=== PATIENT | female | born 1940 | race Caucasian/White ===

== ENCOUNTER 2017-12-23 06:42 | Day surgery (SDC) | payer MEDICARE, OTHER, SELFPAY ==
[2017-12-05 11:27] VITALS: TEMP 36.1
--- NOTE | 2017-12-23 | PATH_ITS ---
[facility] Accession Number: [id number] . 01 Material submitted: . PART A: COLON BIOPSY AT 80CM PART B: CECAL POLYP PART C: SIGMOID BX . 02 Diagnosis: A. Colon at 80 cm, Biopsy: Fragment of tubular adenoma and fragments of colonic mucosa with no diagnostic abnormality. . B. Cecal Polyp: Tubular adenoma. . C. Sigmoid Colon, Biopsy: Colonic mucosa with no diagnostic abnormality. Negative for active or microscopic colitis. Negative for granulomata, dysplasia or malignancy. MRV/12/25/2017 . 02 Electronically signed: . Camron Vinson MD, PhD, Pathologist NPI- [id number] . 01 Gross description: . Part A: COLON BIOPSY AT 80CM: Received in formalin are multiple fragment(s) of maldonado, soft tissue measuring 1.5 x 0.2 x 0.1 cm in aggregate submitted entirely in 1 cassette(s) Part B: CECAL POLYP: Received in formalin are 2 fragment(s) of maldonado, soft tissue measuring 0.4 x 0.3 x 0.2 cm to 0.1 x 0.1 x 0.1 cm submitted entirely in 1 cassette(s) Part C: SIGMOID BX: Received in formalin are multiple fragment(s) of maldonado, soft tissue measuring 1.4 x 0.3 x 0.1 cm in aggregate submitted entirely in 1 cassette(s) /TRC /TRC . 02 Pathologist provided ICD-10: D12.0, D12.6 . 02 CPT . 147245, 297115, 929076 Performed at: [address] [facility], [place], [place] [id number] MD Xander Greenwood MD Phone: [phone] Performed at: 02 [facility] [place] [address] [place] [id number] MD Nishant Woodard MD Phone: [phone]
[2017-12-23 07:25] VITALS: BP 139/75; PULSE 74; RESP 15; TEMP 36.3; O2SAT 94
--- NOTE | 2017-12-23 07:49 | P.HP_ITS ---
History of Present Illness Chief complaint: [id number] COLONOSCOPY Narrative: Yodit Mullen is a 77 year old female who was seen in the office in early November. She has chronic diarrhea presently under treatment for breast cancer in a neoadjuvant status. She has CT scan that suggested thickening of a portion of the colon she is brought in for colonoscopy. She has seen a small amount of blood intermittently. No history of colon cancer. Last colonoscopy he is uncertain but she thinks it was quite sometime ago probably greater than 5 years and may be greater than 10. [facility] Medical History Anxiety (Acute) Arthritis (Acute) Basal cell carcinoma (Acute) Chronic pain of left knee (Acute) Colonic thickening (Acute) Diarrhea (Acute) Endometrial polyp (Acute) Frequent UTI (Acute) GERD (gastroesophageal reflux disease) (Acute) HTN (hypertension) (Acute) History of chemotherapy (Acute) IBS (irritable bowel syndrome) (Acute) Impaired vision (Acute) Neck pain (Acute) Port-a-cath in place (Acute) Postmenopausal bleeding (Acute) Sinus drainage (Acute) Urinary frequency (Acute) Urinary urgency (Acute) Weakness (Acute) Weight loss (Acute) Surgical History History of breast biopsy (Acute) History of cryosurgery (Acute) History of knee replacement (Acute) History of tonsillectomy (Acute) Status post epidural steroid injection (Acute) Status post hysteroscopy (Resolved 12/05/17) History of cataract removal with insertion of prosthetic lens History of third molar tooth extraction Status post hysteroscopy (12/30/14) Status post tonsillectomy and adenoidectomy Family History Mother Cancer Social History household members: children and other Smoking Status: Never smoker alcohol intake: current Meds Home Medications Medication Instructions Recorded Confirmed Type calcium carbonate [Tums] 500 mg PO PRN #0 07/21/17 12/23/17 History diazepam [Valium] 10 mg PO DIRECTED PRN #0 07/21/17 12/23/17 History amlodipine 10 mg PO DAILY 12/02/17 12/23/17 History atenolol 100 mg PO BID 12/02/17 12/23/17 History oxycodone 5 mg PO Q4HP PRN 12/23/17 12/23/17 History Generic Name Dose Route Start Last Admin Trade Name Freq PRN Reason Stop Dose Admin Flumazenil 0.2 mg 12/23/17 07:45 Romazicon IV PRN PRN Benzodiazepine Reversal Sodium Chloride 1,000 mls @ 200 mls/hr 12/23/17 07:45 Normal Saline 0.9% IV CONT MANDY Naloxone HCl 0.2 mg 12/23/17 07:45 Narcan IV Q2MIN PRN Opiate Reversal Ondansetron HCl 4 mg 12/23/17 07:45 Zofran IV 12/23/17 07:46 NOW ONE Allergies Allergy/AdvReac Type Severity Reaction Status Date / Time Penicillins [PENICILLINS] Allergy Severe HIVES Verified 12/23/17 07:14 ciprofloxacin [CIPROFLOXACIN] AdvReac Severe LEG CRAMPS Verified 12/23/17 07:14 lisinopril [LISINOPRIL] AdvReac Severe COUGH Verified 12/23/17 07:14 morphine [MORPHINE] AdvReac Severe NAUSEA, Verified 12/23/17 07:14 VOMITING simvastatin [SIMVASTATIN] AdvReac Severe MUSCLE Verified 12/23/17 07:14 ACHES clindamycin [CLINDAMYCIN] AdvReac Unknown DIARRHEA Verified 12/23/17 07:14 fesoterodine [From TOVIAZ] AdvReac Unknown DRY EYE Verified 12/23/17 07:14 Review of Systems Review of Systems All systems reviewed & are unremarkable except as noted in HPI and below Cardiovascular Comments: Has chronic hypertension Gastrointestinal Comments: Chronic diarrhea. Reports negative stool studies. Exam Vital Signs (past 8 hours): Vital Signs - 8 hr 3 12/23/17 07:25 Temperature 97.3 F L Pulse Rate 74 Respiratory Rate 15 Blood Pressure 139/75 H Pulse Oximetry 94 Pulse Oximetry 94 Oxygen Delivery Method Room Air Narrative Exam Narrative: Co operative no apparent distress. Lungs are clear to auscultation without rales or rhonchi. Heart regular rate and rhythm without murmur or gallop. Abdomen is protuberant soft nontender without mass. Patient is alert and oriented x3. Assessment & Plan Plan: Plan: Patient with chronic diarrhea and an abnormal CT scan for colonoscopy. I have discussed the procedure with her including risk of bleeding, perforation which would necessitate major operation, failure to find removal lesions of the potential tattoo. She appears to understand wishes to proceed.
--- NOTE | 2017-12-23 07:51 | PM.PREOP ---
Pre-operative Note Interval Note Pre-op Check: History & Physical exam performed today H&P completed within 30 days and has changed as indicated here:: None ASA Class (for procedural sedation): III
[2017-12-23] MEDS: SODIUM CHLORIDE 0.9% 1,000 ML 200 ML IV (07:54)
[2017-12-23] MEDS: ONDANSETRON 4 MG/2 ML INJ IV (08:09)
[2017-12-23] MEDS: fentaNYL 250 MCG/5 ML INJ IV (08:20)
[2017-12-23] MEDS: MIDAZOLAM 5 MG/5 ML VIAL IV (08:20)
[2017-12-23 08:50] VITALS: BP 125/75; PULSE 67; RESP 10; O2SAT 94
--- NOTE | 2017-12-23 08:52 | PM.OP.ENDO ---
Operative Date/Time/Diagnoses - Date of procedure: 12/23/17 Time of procedure: 08:52 Pre-op diagnosis: Abnormal CT scan with thickening of the colon. Chronic diarrhea. Post-op diagnosis: same (Two small polyps. Gomez diverticulosis with inflammation and edema of the sigmoid colon.) Procedure & Clinicians Study performed: Colonoscopy with cold biopsy Same procedure as scheduled: Yes Indications: Diarrhea. Abnormal CT scan. Surgeon: Andry García Procedure Notes SCOAP/Timeout: Performed Procedure in detail: The patient was placed in the left lateral decubitus position and underwent IV sedation directed by the surgeon consisting of fentanyl and Versed. Digital exam was remarkable for external tags. The scope was inserted and advanced through the rectum into the sigmoid, descending, transverse, and ascending colon. A small polyp was noted going in at about 80 cm this is biopsied to complete removal. Patient was noted to have extensive sigmoid diverticulosis but other diverticula scattered through the colon. There was some inflammation in the sigmoid colon.. Stiffener was inserted pressure applied. The cecum was reached identified by the ileocecal valve and the appendiceal opening. The ileocecal valve was briefly cannulated. The terminal ileum was normal in appearance. A small lesion was noted in the cecum which was biopsied and removed. The scope was gradually brought out. . The scope ultimately was retroflexed in the rectum. The appearance was normal. The scope was removed and the patient tolerated the procedure well Scope withdrawal time: 13 min Sedation minutes: 43 Findings: diverticulosis, polyp and other findings (Mild inflammation of the sigmoid colon with edema on the wall) Specimen(s): other (Polyps. Random sigmoid biopsies.) Complications: none Recommendations: Colonscopy in 5 years (If in good health)
[2017-12-23 08:54] VITALS: BP 135/68; PULSE 68; RESP 16; O2SAT 96
[2017-12-23 09:02] VITALS: BP 121/77; PULSE 67; RESP 14; TEMP 36.6; O2SAT 96
[2017-12-23 09:20] VITALS: BP 124/66; PULSE 66; RESP 16; TEMP 36.6; O2SAT 99
--- NOTE | 2017-12-23 09:31 | SUR.PHASEII ---
pt ready to go home, assisted to dress by trenton norris.
== END 2017-12-23 09:58 | disposition home or self-care (01) ==
PROVIDERS: PCP Family Medicine; Visit Provider Specialist
PROC: 0DJD8ZZ Inspection of Lower Intestinal Tract, Via Natural or Artificial Opening Endoscopic (ICD-10-PCS; CPT 45378; principal; 2017-12-23 07:45)
DX: R19.7 Diarrhea, unspecified (principal); R93.3 Abnormal findings on diagnostic imaging of other parts of digestive tract; K57.30 Diverticulosis of large intestine without perforation or abscess without bleeding; F41.9 Anxiety disorder, unspecified; I10 Essential (primary) hypertension; C50.919 Malignant neoplasm of unspecified site of unspecified female breast; D12.0 Benign neoplasm of cecum; D12.6 Benign neoplasm of colon, unspecified
CPT/HCPCS: 45380; 88305; 99152; 99153; J2250; J2405; J3010

== ENCOUNTER → 2018-01-07 13:18 | Outpatient (CLI) | payer MEDICARE, OTHER, SELFPAY ==
--- NOTE | 2018-01-07 | DI.RAD.S_ITS ---
PROCEDURE: XR FEMUR LT MIN 2V INDICATIONS: 77 year-old female with left knee and thigh pain. TECHNIQUE: 4 views of the femur were acquired. COMPARISON: [facility], CR, XR PELVIS W LATERAL HIP LT, 10/27/2015, 14:36. FINDINGS: Bones: No fractures or dislocations. There is mild medial left hip joint degenerative narrowing. Patient is status post left knee arthroplasty. No suspicious bony lesions. Soft tissues: No suspicious soft tissue calcifications or masses. IMPRESSION: Mild left hip joint degeneration, without acute bony injuries. Dictated by: Ronny Lopez M.D. on 01/07/2018 at 14:16 Approved by: Ronny Lopez M.D. on 01/07/2018 at 14:17
--- NOTE | 2018-01-07 | DI.RAD.S_ITS ---
PROCEDURE: XR KNEE LT 3V INDICATIONS: 77 year-old female with left knee pain, status post arthroplasty in September 2016. TECHNIQUE: 3 views of the knee were acquired. COMPARISON: [facility], XR KNEE ARTHRITIC SERIES LT, 05/16/2017, 14:38. [facility], KNEE SERIES LT, 12/27/2016, 14:10. [facility], KNEE SERIES LT, 10/04/2016, 14:07. [facility], NASRIN, KNEE 1-2 VIEWS LEFT, 09/23/2016, 17:55. [facility], BILATERAL KNEE 3VW, 05/17/2016, 15:32. FINDINGS: Bones: Left knee arthroplasty hardware appears intact and in expected positions. No periprosthetic fractures or dislocations. No suspicious bony lesions. Soft tissues: There is nonspecific small knee joint effusion. No suspicious soft tissue calcifications. IMPRESSION: Left knee arthroplasty hardware remains intact and in expected positions, with non-specific small knee joint effusion. Dictated by: Ronny Lopez M.D. on 01/07/2018 at 13:58 Approved by: Ronny Lopez M.D. on 01/07/2018 at 13:59
== END ==
PROVIDERS: PCP Family Medicine; Visit Provider Family Medicine
DX: M25.562 Pain in left knee (principal); M79.652 Pain in left thigh; Z96.652 Presence of left artificial knee joint; M16.12 Unilateral primary osteoarthritis, left hip
CPT/HCPCS: 73552; 73562

== ENCOUNTER 2018-01-15 14:59 | Observation (INO) | payer MEDICARE, OTHER, SELFPAY ==
[2018-01-14] VITALS (20 sets, daily range): BP systolic 102–142; BP diastolic 55–79; PULSE 56–67; RESP 12–18; TEMP 35.8–36.5; O2SAT 91–99; BMI 35.1
--- NOTE | 2018-01-14 | PATH_ITS ---
[facility] Accession Number: [id number] . 01 Material submitted: . PART A: RIGHT BREAST SENTINEL NODES X2 PART B: RIGHT BREAST . 02 Diagnosis: A. Right Breast, [place] Nodes x2, Excision: 2 sentinel lymph nodes negative for metastatic carcinoma. Please see CAP summary data below. . B. Right Breast, Total Mastectomy: No residual invasive carcinoma. Focal residual ductal carcinoma in situ. 3 axillary lymph nodes negative for metastatic carcinoma. Please see CAP summary data below. . . PROCEDURE: Total mastectomy SPECIMEN LATERALITY: Right TUMOR SITE: Lower outer quadrant. TUMOR SIZE: No residual invasive carcinoma. . HISTOLOGIC TYPE: Not applicable HISTOLOGIC GRADE: Not applicable TUMOR FOCALITY: Can not be determined. . 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 Size (Extent) of DCIS: 2 mm Architectural patterns: Solid Nuclear grade: High grade (grade 3) Necrosis: Not identified . LOBULAR CARCINOMA IN SITU: No LCIS in specimen . TUMOR EXTENSION: SKIN: Not involved NIPPLE: Not involved SKELETAL MUSCLE: Not applicable . MARGINS: INVASIVE CARCINOMA MARGINS: Not applicable. DCIS MARGINS: All margins are greater than 30 mm from DCIS. . REGIONAL LYMPH NODES: Uninvolved by tumor cells Number of Lymph Nodes Examined: 5 Number of [place] Lymph Nodes Examined: 2 . TREATMENT EFFECT: Treatment Effect in the Breast: No residual invasive carcinoma in breast after presurgical therapy. Treatment Effect in the Lymph Nodes: No lymph node metastasis and no prominent fibrous scarring in the nodes. . LYMPHOVASCULAR INVASION: Not identified. DERMAL LYMPHOVASCULAR INVASION: Not identified. . PATHOLOGIC STAGE CLASSIFICATION (AJCC 8th Edition, 2017) TNM Descriptors: y(posttreatment) Primary Tumor: pTis (DCIS) Regional Lymph Nodes: pN0(sn) . ADDITIONAL PATHOLOGIC FINDINGS: Fibrocystic changes. Biopsy site changes. Benign intraductal papilloma. . MICROCALCIFICATIONS: Present in non-neoplastic tissue. . CLINICAL HISTORY: Prior presurgical (neoadjuvant) therapy for this diagnosis of invasive carcinoma. JRL/01/21/2018 . 02 Comment: B. There is a small focus of atypical intraductal cells adjacent to the area of biopsy site changes. The cells show degenerative features, but have large atypical nuclei and high nuclear pleomorphism, consistent with the patient's prior high grade DCIS. . 02 Electronically signed: . Edith Angulo MD, Pathologist NPI- [id number] . 01 Gross description: . (A) Received in formalin, labeled right breast sentinel node x2, are two lymph nodes (1.4 x 0.9 x 0.5 cm and 2.1 x 0.8 x 0.8 cm) with attached adipose tissue. Section code: (A1, A2) one serially sectioned lymph node in each cassette. (B) Received in formalin, labeled right breast, short superior, long lateral, is a right breast (5.2 cm AP, 22.3 cm ML, 21.7 cm SI) with overlying skin (11.7 cm SI, 20.7 cm ML) with nipple areolar complex (4.0 x 3.8 cm). The axillary tail (9.5 x 8.0 x 2.0 cm) is present. The specimen is oriented with two black sutures (short-superior, long-lateral). No localization wire is present. After the axillary tail is removed, the specimen is serially sectioned ML into 31 slices with the medial and lateral resection margins as slices #1 and #31, respectively. The breast tissue is fatty and contains a previous biopsy site (1.5 x 1.0 x 0.8 cm) within slice #21. The biopsy site is located in the lower outer quadrant and is 3.8 cm from the skin surface, 6.5 cm from the posterior, 15.7 cm from the superior, 3.2 cm from the inferior, 15.1 cm from the medial, and 5.7 cm from the lateral resection margins. The surrounding tissue which involves slices #19-#22, is fatty and densely fibrous with scattered irregularly firm areas. This fibrous area is approximately 6.5 x 5.5 x 2.8 cm and is located 3.0 cm from the skin surface, 1.0 cm from the posterior, 13.5 cm from the superior, 2.5 cm from the inferior, 13.7 cm from the medial, and 6.5 cm from the lateral resection margins. No definitive nodules, masses or lesions are grossly identified. A silver-colored metal coiled biopsy marker is identified within the biopsy cavity. The axillary tail is fatty and contains multiple possible lymph nodes (0.8 x 0.5 x 0.2 cm-1.5 x 1.0 x 0.5 cm). Ink code: purple-anterior; yellow-posterior; black-superior; orange-inferior; green-medial; blue-lateral. Section code: (B1) nipple; (B2) skin; (B3) medial resection margin, perpendicularly sectioned, business representative; (B4) slice #17, business representative; (B5-B7) slice #18, tissue adjacent to densely fibrous area, business representative; (B8, B9) slice #19, business representative; (B10) slice #20, tissue adjacent to biopsy cavity; (B11, B12) slice #21, biopsy cavity, business representative; (B13-B14) slice #22, tissue adjacent to biopsy cavity, business representative; (B15) slice #23, tissue adjacent to densely fibrous area, business representative; (B16) superior resection margin and perpendicular slice of lateral resection margin, business representative; (B17-B19) one lymph node in each cassette. Note: Approximate total fixation time in formalin-69 hours 30 minutes, using a collection date of 01/14/2018 with no collection time given. This specimen has been reviewed by Dr. Karina Whyte. ([id number]) Dr. Angulo re-examined this specimen and submitted additional tissue as follows: (B21-22) slice 20, more inferior/posterior to sampled tissue, in composite. (B23) slice 20, more anterior to sampled tissue. (B24) slice, 20 more superior to sampled tissue. (B25) slice 21, more anterior to sampled tissue. (B26) slice 23, more anterior to sampled tissue. (B27-B28) slice 24, lateral to sampled tissue. (B29) slice 25, more anterior to sampled tissue. /MRV . 02 Microscopic: . Immunohistochemical stains were performed to characterize cells of interest. Control stains showed appropriate reactivity. . Results: A1: KIMBERLY: Negative. A2: KIMBERLY: Negative. B13: p63: Positive around the cells of interest. B13: myosin: Positive around the cells of interest. B21: p63: Positive around the cells of interest. B21: myosin: Positive around the cells of interest. B24: p63: Positive around the cells of interest. B24: myosin: Positive around the cells of interest. B26: p63: Positive around the cells of interest. B26: myosin: Positive around the cells of interest. . Interpretation: No isolated tumor cells are identified by IHC in the sentinel lymph nodes. Myoepithelial markers are present around ducts/lobules of interest consistent with non-neoplastic ducts/lobules. . * This test was developed and its performance characteristics determined by [facility]. It has not been cleared or approved by the U.S. Food and Drug Administration. The FDA has determined that such clearance or approval is not necessary. This test is used for clinical purposes. It should not be regarded as investigational or for research. . 02 Pathologist provided ICD-10: C50.911 . 02 CPT . 847529, 539868, W88451, T88145 Performed at: 01 [facility] [address] [id number] MD Xander Greenwood MD Phone: [phone] Performed at: 02 [facility] [address] [place] [id number] MD Nishant Woodard MD Phone: [phone]
--- NOTE | 2018-01-14 08:00 | DI.NM.S_ITS ---
PROCEDURE: NM SENTINEL NODE W IMAGING RADIOPHARMACEUTICAL: 0.5-1.0 mCi Millipore filtered Tc-99m sulfur colloid. INDICATIONS: 77 year-old female with right breast neoplasm. TECHNIQUE: The area around the nipple was prepped and draped in a sterile fashion. Tc-99m sulfur colloid was injected intra-dermally in the outer edge of the areola in the right breast. Images were obtained subsequently. A body contour outline was obtained. FINDINGS: There is one scintigraphically apparent sentinel lymph node in the ipsilateral axilla. IMPRESSION: Administration of radiotracer into the right breast periareolar region for intra-operative sentinel lymph node localization. Dictated by: Ronny Lopez M.D. on 01/14/2018 at 10:04 Approved by: Ronny Lopez M.D. on 01/14/2018 at 10:05
[2018-01-14] MEDS: LACTATED RINGERS 1,000 ML 42 ML IV ×2 (09:28→11:14)
--- NOTE | 2018-01-14 09:45 | SUR.PREOP ---
LAVERN GARRISON SPOKE TO DR ADAME ABOUT ALLERGUIES AND GLUCOSE ORDERED, INSTRUCTED NOT TO DO GLUCOSE AND ANCEF ANTIBIOTIC IS OK TO GIVE.
[2018-01-14] MEDS: CEFAZOLIN 2 GM/100 ML FROZ.PIGGY IV (09:52)
[2018-01-14] MEDS: BUPIVACAINE 0.5% (PF) 30 ML VIAL INJ (10:35)
[2018-01-14] MEDS: LIDOCAINE 1% W/EPI INJ 20 ML INJ (10:36)
--- NOTE | 2018-01-14 11:30 | PM.OP.1 ---
Operative Date/Time/Diagnoses - Date of procedure: 01/14/18 Time of procedure: 11:30 Pre-op diagnosis: Right Breast Cancer Post-op diagnosis: same Procedure & Clinicians Procedure: Right Mastectomy and [place] Node Biopsy Same procedure as scheduled: Yes Indications: Biopsy proven right breast cancer. Unable to tolerated neoadjuvant chemotherapy Surgeon: Kristine Chavira Click Yes if Unassisted: Yes Anesthesia Type: General (Ahsaei) and Local Operative Notes Findings: Two sentinel nodes. 1 with 10 second count of 9192 and 1 with a 10 second count of 7358 in a background of less than 10 Closure Type: primary Specimen(s): none sent (1. Right breast, 2. Right axillary sentinel nodes) Implants & Drains: 19 Citizen [place] Reese drain in the inferior pocket Applied: drain(s) Estimated Blood Loss (mL): 50 Procedure in detail: After obtaining informed consent, the patient was taken to the operating room and placed in supine position on the operating table. Following successful induction of general endotracheal anesthesia, appropriate padding of all bony prominences, and placement of appropriate monitors, the right chest and axilla were prepped and draped in the standard surgical fashion. Timeout was held per SCOAP protocol. We began with the right sentinel node biopsy. The navigator probe was used to identify the location of the sentinel node in the lower portion of the right axilla. Following infiltration with local anesthetic to create a field block, an incision was created in an elliptical in fashion around the nipple-areolar complex of the breast and carried down through the skin and subcutaneous tissue. The medial portion of this incision was used to access the right axillary fat pad. After careful dissection the sentinel node was identified and liberated by clipping afferent and efferent lymphatics. A 10 second count revealed the 1st sentinel node had counts 9192 and the 2nd had a 10 sec count of 7358 . Remaining background in the right axilla was less than 10. The wound was checked for hemostasis and irrigated with warm water. We continued with the mastectomy. Through the new elliptical incision and using traction and countertraction the tissue of the right breast was carefully from the overlying skin and dermis. This was continued medially to the sternum, superiorly to the clavicle, inferiorly to the inframammary fold, and laterally to the latissimus. The axillary tail of the breast was seen to extend revealed fluid up into the axilla fairly extensively. It was impossible to separate the level 1 and level 2 axillary nodes from the breast tissue completely. Dissection was continued until all the breast tissue had been divided down to the pectoralis muscle and the breast was removed medially to laterally the axillary node packet was then dissected free from underlying muscle and overlying skin. All afferent and efferent lymphatics and vasculature were addressed with clips prior to division. Once the breast and axillary contents were liberated, the breast was removed, marked appropriately, and passed from the table. The wound was then checked for hemostasis and irrigated copiously with warm water. A 19 Citizen [place] Reese drain was then placed in the inferior pocket and brought out through the skin inferior medially. The wound was then closed in 2 layers with Vicryl sutures and clips were applied in the skin. Dermabond was applied to cover the clips.. The drain was engaged and a breast binder of appropriate size placed for light pressure. All sponge, needle, and instrument counts were correct at the conclusion of the case. The patient was allowed awaken from anesthesia without difficulty and taken to the post anesthesia care unit in good condition. Complications: none Condition: stable Disposition: PACU Plan for aftercare: 1. Admit for observation and supportive care 2. Patient will need teaching for drain care 3. Patient is a fall risk
[2018-01-14] MEDS: fentaNYL 100 MCG/2 ML INJ 50 MCG IV ×2 (11:50→11:58)
[2018-01-14] MEDS: HYDROMORPHONE 2 MG INJ 0.5 MG IV ×4 (12:10→12:35)
[2018-01-14] MEDS: HYDROCODONE/ACET 5/325 TABLET 1 TAB PO (12:43)
[2018-01-14] MEDS: LACTATED RINGERS 1,000 ML 100 ML IV (13:12)
[2018-01-14] MEDS: LORazepam 0.5 MG TABLET PO ×2 (13:13→23:55)
[2018-01-14] MEDS: DEXTROSE 5%-0.45% NS 1,000 ML 125 ML IV ×2 (14:47→23:43)
[2018-01-14] MEDS: OXYCODONE/ACETAMINOPHEN 5/325 TABLET 1 TAB PO ×3 (14:48→22:48)
--- NOTE | 2018-01-14 15:55 | PC.NURSE ---
pt to floor around 1200. Dressing to r.mastectomy with gauze and halter binder in place. given ativan 0.5mg for restlessness and helpful. pt also given percocet for pain. She is resting comfortably now. ivf infusing and pt has no needs at this time.
--- NOTE | 2018-01-14 20:39 | PC.NURSE ---
Pt refusing her evening dose of atenolol stating she hasn't been taking her evening dose for a couple weeks now she has only been taking it in the am. Pt stating the 1 percocet is relieving her pain in her knee and also at her incision site quite well. Binder remains in place, with gauze over incision with alyse intact, no drainage noted at incision site, drain patent, draining sanguineous liquid.
[2018-01-15] MEDS: OXYCODONE/ACETAMINOPHEN 5/325 TABLET 1 TAB PO ×4 (03:59→19:48)
[2018-01-15 04:54] VITALS: BP 130/67; PULSE 68; RESP 17; TEMP 36.6; O2SAT 95
[2018-01-15 07:40] VITALS: BP 130/61; PULSE 65; RESP 18; TEMP 36.8; O2SAT 93
[2018-01-15] MEDS: DOCUSATE 100 MG CAPSULE PO ×2 (09:08→20:06)
[2018-01-15] MEDS: AMLODIPINE 5 MG TABLET 10 MG PO (09:08)
[2018-01-15] MEDS: ATENOLOL 50 MG TABLET 100 MG PO (09:08)
[2018-01-15] MEDS: KETOROLAC 30 MG/ML VIAL IV (09:09)
[2018-01-15 12:17] VITALS: BP 134/72; PULSE 72; RESP 18; TEMP 36.6; O2SAT 94
--- NOTE | 2018-01-15 12:56 | PM.PN.1 ---
Subjective Date Patient Seen: 01/15/18 Time Patient Seen: 12:56 Interval history: POD #1 after left mastectomy for invasive malignancy. She is feeling ok today. Better than she thought she would. Says her pain is reasonably well controlled Exam Vital Signs (past 8 hours): Vital Signs - 8 hr 01/15/18 07:40 Temperature 98.2 F Pulse Rate 65 Respiratory Rate 18 Blood Pressure 130/61 H Pulse Oximetry 93 Pulse Oximetry 93 Oxygen Delivery Method Room Air Oxygen Flow Rate 2 Narrative Exam Narrative: Exam is limited to the chest. Lungs are clear bilaterally Heart is regular rate and rhythm The skin over the right mastectomy incision is alive, mild bruising. Drainage is very thin and serosanguineous. Assessment & Plan Plan: Assessment/Plan Narrative: Postop day 1 status post right mastectomy for biopsy-proven breast malignancy. We will await pathology. Continue supportive care. catering convention services manager will see her this afternoon regarding the possibility of home health assistance. Tentatively plan for discharge tomorrow
--- NOTE | 2018-01-15 16:02 | CM.DANOTE ---
DCP Assessment: Pt is a 77 yo female, resident of [place]. Pt was SDC, changed to obs for a Masectomy done by Dr Chavira. Pt's PCP is Dr Gasca, Insurance is Medicare/[employer]. Reviewed chart, spoke w/Dr Chavira and BLADIMIR Dent, then met w/pt to review DC options, explained SW role. Pt lives alone, 60 yo son, recently , lives on the property. Pt explains it is difficult for her to walk or stand for long stretches d/t her left knee, h/o knee surgery that hasn't quite healed. She attempted to get HH, Dr Gasca had sent a referral to [facility] and they told pt you are not homebound. According to our conversation, pt's son does not provide much physical assistance and pt states her grand kids and great grand kids are busy with their own families. Pt has friends that also have medical issues. Pt heats up frozen meals for herself and can complete most ADLs indp but experiences more pain in my knee than before the surgery. Pt explains she has a family h/o cancer, she recently had to stop chemo d/t an adverse reaction, she became too weak to continue. Pt admits to multiple loses in her family, including 2 children, she states her roopa helps her cope. Pt doesn't want to attend jain because it takes a lot of effort to leave her home, but watches [employer]. Overall, pt seems quite vulnerable right now, the least this LANDCARE FACILITATOR can arrange is HH, Pt agreeable and has no agency preference. This LANDCARE FACILITATOR will attempt [facility] because [facility] has recently declined to follow up w/pt, per her report. HH RN/PT/CHILD CARE SITTER/LANDCARE FACILITATOR are approp. F2F signed by Dr Chavira today; referral to HH agency still needed for pt's DC Friday. LATOYA Lipscomb
[2018-01-15 16:13] VITALS: BP 114/59; PULSE 64; RESP 17; TEMP 36.5; O2SAT 95
[2018-01-15 19:30] VITALS: BP 130/61; PULSE 62; RESP 18; TEMP 36.6; O2SAT 95
[2018-01-15] MEDS: SODIUM CHLORIDE 0.9% FLUSH 10 ML IV (19:48)
[2018-01-15] MEDS: LORazepam 0.5 MG TABLET PO (22:15)
--- NOTE | 2018-01-15 22:24 | PC.NURSE ---
EDUCATION educated pt on LEIDY drain care. supervised pt during LEIDY drainage emptying. pt without questions at this time. will communicate to oncoming RN to allow pt to continue to care for her drain.
[2018-01-16 00:10] VITALS: BP 126/69; PULSE 72; RESP 16; TEMP 36.7; O2SAT 98
[2018-01-16] MEDS: OXYCODONE/ACETAMINOPHEN 5/325 TABLET 1 TAB PO ×3 (00:34→12:39)
[2018-01-16 06:44] VITALS: BP 140/75; PULSE 62; RESP 15; TEMP 36.3; O2SAT 95
[2018-01-16 08:02] VITALS: BP 141/73; PULSE 60
[2018-01-16] MEDS: AMLODIPINE 5 MG TABLET 10 MG PO (08:02)
[2018-01-16] MEDS: ATENOLOL 50 MG TABLET 100 MG PO (08:02)
[2018-01-16] MEDS: DOCUSATE 100 MG CAPSULE PO (08:04)
[2018-01-16] MEDS: SODIUM CHLORIDE 0.9% FLUSH 10 ML IV (08:06)
[2018-01-16 08:29] VITALS: BP 145/78; PULSE 60; RESP 16; TEMP 36.7
--- NOTE | 2018-01-16 10:38 | PM.DS.1 ---
History of Present Illness Date Patient Seen: 01/16/18 Time Patient Seen: 10:38 Chief complaint: [id number] RIGHT BREAST MASTECTOMY & SNB Narrative: Yodit is a pleasant 77-year-old lady with biopsy-proven right breast malignancy. Her primary tumor was about 4 cm in size. Our initial plan was for her to receive neoadjuvant chemotherapy followed by lumpectomy. Neoadjuvant chemotherapy proved very very difficult for Yodit to tolerate and she decided that she preferred a mastectomy. She also decided that she did not wish to have radiation therapy. She had presented on the day of admission to undergo a right mastectomy and sentinel node biopsy. Discharge Providers Date of admission: 01/14/18 07:35 Primary care physician: Ham Gasca MD Consults: 01/14/18 13:25 Consult to Discharge Planning Routine Comment: Consult to Diamond Assorter Routine Comment: Patient is requesting home health Discharge provider: Kristine Chavira MD Summary Discharge Diagnosis: Right breast cancer Hospital Course: Yodit underwent an uneventful right modified radical mastectomy and sentinel node biopsy on the day of admission. She was returned to the [facility] floor postoperatively and has done well. She is right handed and so having her right arm somewhat disabled at the moment significantly limits her activity. She has done well keeping at her side but she will need help at home to manage her drain and her breast binder. She does have a son at home but he has recently had surgery himself in his ability to help is limited. Today, her pain is well controlled, she is walking the halls unassisted, her vital signs are normal, and her drain output is serous. She is ready for discharge. Status at Discharge Cognitive/behavioral status at discharge: Normal Functional status at discharge: uses cane/walker Time Spent with Patient Less than 30 minutes Exam Vital Signs (past 8 hours): Vital Signs - 8 hr 01/16/18 06:44 01/16/18 08:02 01/16/18 08:29 Temperature 97.4 F L 98.1 F Pulse Rate 62 60 60 Respiratory Rate 15 16 Blood Pressure 140/75 H 141/73 H 145/78 H Pulse Oximetry 95 Pulse Oximetry 95 Oxygen Delivery Method Room Air Oxygen Flow Rate 0 Narrative Exam Narrative: Very pleasant elderly lady in no real distress today HEENT: Normocephalic and atraumatic, pupils equal round reactive to light accommodation with anicteric sclera Lungs: Essentially clear bilaterally Heart: Regular rate and rhythm Chest: Right mastectomy incision is healing. She has some bruising in this superior and inferior flap more laterally than medially. No evidence of epidermolysis yet. The drain is serous and all tissue seems to be alive. No evidence of edema in the right arm hand. Extremities: Bilateral 1+ lower extremity edema Discharge Plan Discharge Plan Patient Disposition: Home Health Service Discharge comment: Needs home health assistance for wound care and drain management. Discharge Med Rec/Prescriptions Prescriptions: New oxycodone-acetaminophen 5-325 mg Tablet 1 tab PO Q4HR PRN (Reason: Pain, Moderate) Qty: 30 RF: 0 docusate sodium 100 mg Capsule 100 mg PO BID PRN (Reason: Constipation) 30 Days Qty: 60 RF: 0 Continue calcium carbonate [Tums] 500 MG tablet,chewable 500 mg PO PRN PRN (Reason: Heartburn) Qty: 0 RF: 0 lorazepam 0.5 mg Tablet 0.5 mg PO Q4-6H PRN (Reason: Anxiety) RF: 0 atenolol 100 mg Tablet 100 mg PO BID RF: 0 amlodipine 10 mg Tablet 10 mg PO DAILY RF: 0 Discontinued oxycodone 5 MG tablet 5 mg PO Q4HP PRN (Reason: Pain (Scale Score 1-3)) RF: 0 Follow up/Referrals: Kristine Chavira MD [Physician] - 1 Week Provider Discharge Instructions Diet: Diet as Tolerated Activity: Keep your right arm at your side. You may shower as desired. You may remove the binder to shower or to launder the binder and then replace afterward. You may wear any garment you wish under the binder and place the binder on top. Cold/Heat Therapy: Continue to apply ice to the chest wall and axilla as often as tolerated. Wound Care Report to your healthcare provider any signs of infection, such as:: chills, fever, night sweats, increased pain and unusual drainage Dressing: Empty the drain and record the amount every 12 hours. Discharge Data Primary Care Provider: Ham Gasca Attending Provider: Kristine Chavira Admit Date/Time: 01/14/18 07:35
--- NOTE | 2018-01-16 15:47 | CM.DPNOTE ---
DC Note: This SCALLOP DREDGER requested that admin assist Geno make HH referral through [facility]. Updated pt and she was grateful and expected her son to pick her up today. Encouraged pt to wait for the DC instructions until son arrived. Home w/family and [facility] f/y w/in 24-48 hrs. RobynKNaomi
== END 2018-01-16 13:57 | disposition home health service (06) ==
LOC: AC 01-16 10:35 → OR 01-16 14:27
PROVIDERS: Admitting Provider Surgery; PCP Family Medicine; Visit Provider Surgery
PROC: 0HTT0ZZ Resection of Right Breast, Open Approach (ICD-10-PCS; CPT 19303; principal; 2018-01-14 10:00)
DX: C50.911 Malignant neoplasm of unspecified site of right female breast (principal); E66.9 Obesity, unspecified; I10 Essential (primary) hypertension; Z17.1 Estrogen receptor negative status [ER-]
CPT/HCPCS: 19303; 38500; 78195; 88307; 88309; 88341; 88342; 94760; A9541; G0378; J0690; J1100; J1170; J1885; J2405; J2704; J3010

== ENCOUNTER → 2018-05-07 09:14 | Outpatient (CLI) | payer MEDICARE, OTHER, SELFPAY ==
[2018-01-22 13:41] VITALS: BMI 35.1
--- NOTE | 2018-05-07 09:17 | DI.ECHO.S_ITS ---
[facility]---------+ [facility] +---------+ : : [address] : : : : [id number] : : : : Phone: [phone] +---------+ Echocardiogram Report + + :Name: MARY DELGADO Study Date: 05/07/2018 Height: 64 in : :[facility] Exam Location: [facility] Weight: 215 lb : : Gender: Female BSA: 2.0 m2 : :: 1940 Age: 77 yrs BP: 125/68 mmHg: :Reason For Study: BREAST CANCER PRE TREATMENT : : Performed By: Shital Peter : :Referring: MAHIN MEDRANO : + + Interpretation Summary The ejection fraction is estimated to be 60-65%. The left atrium is moderately dilated. There is trace mitral regurgitation. There is mild aortic valve sclerosis. There is mild tricuspid regurgitation. The right ventricular systolic pressure is estimated to be at least 40 mmHg based on an estimated right atrial pressure of 3 mm Hg. Procedure: A two-dimensional transthoracic echocardiogram with color flow and Doppler was performed. The study quality was technically adequate. There is no prior echocardiogram noted for this patient. The patient was in normal sinus rhythm during the exam. Left Ventricle: The left ventricle is normal in size, wall thickness, and systolic function without any focal wall motion abnormalities. The ejection fraction is estimated to be 60-65%. Left ventricular wall motion is normal. Diastolic parameters suggest probable normal left ventricular diastolic function and normal filling pressures. Right Ventricle: The right ventricle is normal in size and function. Atria: The left atrium is moderately dilated. The right atrium is mildly dilated. There is no Doppler evidence for an interatrial shunt. Mitral Valve: The mitral valve leaflets appear mildly thickened, but open well. There is mild mitral annular calcification. There is trace mitral regurgitation. Aortic Valve: The aortic valve is trileaflet. There is mild aortic valve sclerosis. The aortic valve opens well. No aortic regurgitation is present. Tricuspid Valve: The tricuspid valve is normal. There is mild tricuspid regurgitation. The right ventricular systolic pressure is estimated to be at least 40 mmHg based on an estimated right atrial pressure of 3 mm Hg. Pulmonic Valve: The pulmonic valve is not well seen, but is grossly normal. There is a trace or physiologic amount of pulmonic regurgitation. Great Vessels: The aortic root is normal size. The ascending aorta is normal in size. The aortic arch is normal in size. The pulmonary is not well visualized. The IVC is of normal diameter and collapses greater than 50% with a sniff. This suggests a low right atrial pressure of 3 mm Hg. Pericardium/ Pleura There is no pericardial effusion. There is no pleural effusion. MMode/2D Measurements & Calculations LVIDd: 4.8 cm LVOT diam: 2.1 cm LVIDs: 3.0 cm Ao root diam: 3.3 cm FS: 37.3 % asc Aorta Diam: 3.4 cm EPSS: 0.13 cm Ao Arch Diam (Prox Trans): 2.9 cm IVSd: 0.97 cm LVPWd: 0.97 cm LV peters. diameter/BSA (cm/m^2): 2.4 LV sys. diameter/BSA (cm/m^2): 1.5 LA A2 area: 25.2 cm2 RA long axis: 5.9 cm LA A4 area: 26.9 cm2 RA area: 22.6 cm2 LA length (vol): 6.1 cm RA vol: 74.1 ml LA vol: 95.3 ml RA : 36.7 ml/m2 LA vol index: 47.2 ml/m2 IVC diam: 1.3 cm RVD1 (basal): 3.5 cm RVD2 (mid): 3.4 cm TAPSE: 2.6 cm Doppler Measurements & Calculations Ao V2 max: 141.0 cm/sec LVOT Max Bony: 138.3 cm/sec Ao V2 mean: 96.1 cm/sec LV V1 max P.7 mmHg Ao max P.9 mmHg LV V1 VTI: 28.3 cm Ao mean P.3 mmHg STEPHANIE(I,D): 3.6 cm2 Ao V2 VTI: 27.2 cm STEPHANIE(V,D): 3.3 cm2 sev ratio: 1.0 STEPHANIE indexed to BSA (cm^2/m^2): 1.8 MV E max obny: 100.6 cm/sec TR max bony: 301.9 cm/sec MV A max bony: 120.0 cm/sec TR max P.5 mmHg MV E/A: 0.84 PA V2 max: 84.2 cm/sec Med Peak E' Bony: 6.3 cm/sec PA V2 mean: 59.6 cm/sec E/E' med: 15.9 PA mean P.5 mmHg Lat Peak E' Bony: 7.7 cm/sec PA pr(Accel): 41.6 mmHg E/E' lat: 13.1 E/e' average: 14.5 MV dec time: 0.24 sec Reading Physician:03:09 PM
== END ==
PROVIDERS: PCP Family Medicine; Visit Provider Internal Medicine Hematology & Oncology
DX: I08.2 Rheumatic disorders of both aortic and tricuspid valves (principal); C50.919 Malignant neoplasm of unspecified site of unspecified female breast; Z92.21 Personal history of antineoplastic chemotherapy
CPT/HCPCS: 93306

== ENCOUNTER → 2018-07-31 12:26 | Outpatient (CLI) | payer MEDICARE, OTHER, SELFPAY ==
[2018-01-22 13:41] VITALS: BMI 35.1
--- NOTE | 2018-07-31 12:29 | DI.ECHO.S_ITS ---
[facility]---------+ [facility] +---------+ : : [address] : : : : [id number] : : : : Phone: [phone] : : [phone] +---------+ Echocardiogram Report + + :Name: MARY DELGADO Study Date: 07/31/2018 Height: 64 in : :[facility] Weight: 224 lb : : Gender: Female BSA: 2.1 m2 : :: 1940 Age: 77 yrs BP: 160/78 mmHg: :Reason For Study: Chemotherapy F/U (ICD Code V67.2) : : Performed By: Edith Edwards : :Referring: MAHIN MEDRANO : + + Interpretation Summary Normal left ventricle size with ejection fraction 60-65%. Moderately dilated left atrium. Mild mitral regurgitation. Mild to moderate tricuspid regurgitation. The right ventricular systolic pressure is estimated to be at least 52 mmHg based on an estimated right atrial pressure of 3 mm Hg. Moderate pulmonary hypertension. Comparison is made with the echocardiogram of 05-07-18, pulmonary pressure has increased. Procedure: A two-dimensional transthoracic echocardiogram with color flow and Doppler was performed. The study quality was technically adequate. Comparison is made with the echocardiogram of 05-07-18. The patient was in normal sinus rhythm during the exam. Left Ventricle: The left ventricle is normal in size. There is normal left ventricular wall thickness. The ejection fraction is estimated to be 60-65%. There are no focal wall motion abnormalities. Diastolic parameters suggest a pseudonormalization pattern, consistent with probable elevated filling pressures. Right Ventricle: The right ventricle grossly appears normal in size with probable normal systolic function. Atria: The left atrium is moderately dilated. Right atrial size is normal. The interatrial septum is intact with no evidence for an atrial septal defect. Mitral Valve: The mitral valve leaflets appear mildly thickened, but open well. There is mild mitral annular calcification. There is mild mitral regurgitation. Aortic Valve: The aortic valve opens well. No aortic regurgitation is present. Tricuspid Valve: The tricuspid valve leaflets are thin and pliable. There is mild to moderate tricuspid regurgitation. The right ventricular systolic pressure is estimated to be at least 52 mmHg based on an estimated right atrial pressure of 3 mm Hg. There is moderate pulmonary hypertension. Pulmonic Valve: The pulmonic valve is not well visualized. Great Vessels: The aortic root is normal size. The dimensions of the ascending aorta are normal. The IVC is of normal diameter and collapses greater than 50% with a sniff. This suggests a low right atrial pressure of 3 mm Hg. Pericardium/ Pleura There is no pericardial effusion. There is no pleural effusion. MMode/2D Measurements & Calculations LVIDd: 5.1 cm Ao root diam: 3.0 cm LVIDs: 3.4 cm Aortic Jxn: 2.6 cm FS: 32.7 % asc Aorta Diam: 3.4 cm IVSd: 1.0 cm LVPWd: 0.94 cm LV peters. diameter/BSA (cm/m^2): 2.5 LV sys. diameter/BSA (cm/m^2): 1.7 LA dimension: 5.0 cm RA long axis: 5.3 cm LA A2 area: 25.0 cm2 RA area: 19.8 cm2 LA A4 area: 27.9 cm2 RA vol: 63.1 ml LA length (vol): 6.5 cm RA : 30.7 ml/m2 LA vol: 91.4 ml IVC diam: 1.5 cm LA vol index: 44.5 ml/m2 RVDd major: 7.1 cm RVD1 (basal): 4.0 cm RVD2 (mid): 3.5 cm Doppler Measurements & Calculations Ao V2 max: 160.3 cm/sec MV E max bony: 135.8 cm/sec Ao V2 mean: 106.6 cm/sec MV A max bony: 107.7 cm/sec Ao max P.3 mmHg MV E/A: 1.3 Ao mean P.3 mmHg Med Peak E' Bony: 5.9 cm/sec Ao V2 VTI: 37.2 cm E/E' med: 23.0 MV dec time: 0.14 sec MV P1/2t: 42.9 msec TR max bony: 349.4 cm/sec MV V2 mean: 55.8 cm/sec TR max P.8 mmHg MV mean P.4 mmHg PA Accel Time: 0.13 sec MV V2 VTI: 21.7 cm MV P1/2t max bony: 136.8 cm/sec MVA(P1/2t): 5.1 cm2 Electronically signed by: Genevieve Zheng on Reading Physician:07/31/2018 04:19 PM
== END ==
PROVIDERS: PCP Family Medicine; Visit Provider Internal Medicine Hematology & Oncology
DX: C50.911 Malignant neoplasm of unspecified site of right female breast (principal)
CPT/HCPCS: 93306

== ENCOUNTER → 2018-08-28 09:52 | Outpatient (CLI) | payer MEDICARE, OTHER, SELFPAY ==
[2018-01-22 13:41] VITALS: BMI 35.1
--- NOTE | 2018-08-28 | DI.NM.S_ITS ---
PROCEDURE: NM BONE SCAN WHOLE BODY RADIOPHARMACEUTICAL: 20.9 mCi Tc-99m MDP IV. INDICATIONS: unilateral primary osteoarthritis, knee TECHNIQUE: Delayed whole-body scintigrams were obtained approximately 3-4 hours after intravenous injection of radiotracer. Anterior and posterior views were acquired from vertex to feet. Additional left and right oblique views of the knees were obtained. COMPARISON: [facility], CT, ABDOMEN/PELVIS WITH CONTRAST, 10/09/2017, 15:52. [facility], CR, L-SPINE 2-3 VIEWS, 09/22/2015, 14:08. [facility], CR, XR FEMUR LT MIN 2V, 01/07/2018, 13:02. [facility], CR, XR KNEE ARTHRITIC SERIES LT, 05/16/2017, 14:38. [facility], CR, XR KNEE LT 3V, 01/07/2018, 13:02. FINDINGS: There is left knee arthroplasty. There is increased activity along the lateral aspect of the distal femur at the bone-prosthesis interface. No lesions are identified in skull, sternum, clavicles, scapulae, ribs, bony pelvis, and visualized shafts of the long bones. There is level increased uptake in cervical, thoracic and lumbar spine with distribution indistinguishable from degenerative changes. There are foci of increased periarticular activity involving shoulders bilaterally, sternoclavicular joints bilaterally, right elbow, both wrists and hands, hips bilaterally, right knee, ankles and feet bilaterally, compatible with degenerative/arthritic changes. There is increased activity on the posterior projection above the iliac crests bilaterally. Note is made of urinary contamination. IMPRESSION: 1. There is left knee arthroplasty. Increased activity is noted in the lateral aspect of the distal left femur along the bone/prosthesis interface, which could be secondary to prosthesis loosening. 2. 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 3. There is increased activity on the posterior projection above the iliac crests bilaterally, uncertain clinical significance. The finding may be secondary to contamination. Dictated by: Gabbie Young M.D. on 08/28/2018 at 17:12 Approved by: Gabbie Young M.D. on 08/28/2018 at 17:25
== END ==
PROVIDERS: PCP Family Medicine; Visit Provider Orthopaedic Surgery
DX: M15.0 Primary generalized (osteo)arthritis (principal); Z96.652 Presence of left artificial knee joint
CPT/HCPCS: 78306; A9503

== ENCOUNTER → 2018-10-12 13:41 | Outpatient (CLI) | payer MEDICARE, OTHER, SELFPAY ==
[2018-01-22 13:41] VITALS: BMI 35.1
--- NOTE | 2018-10-12 | DI.ECHO.S_ITS ---
[facility]---------+ [facility] +---------+ : : [address] : : : : [id number] : : : : Phone: [phone] : : [phone] +---------+ Echocardiogram Report + + :Name: MARY DELGADO Study Date: 10/12/2018 Height: 64 in : :[facility] Weight: 222 lb : : Gender: Female BSA: 2.0 m2 : :: 1940 Age: 77 yrs BP: 138/74 mmHg: :Reason For Study: Chemotherapy F/U (ICD Code V67.2) : :Ordering Physician: Moises : :Carlos Corona Performed By: Edith Edwards : + + Interpretation Summary 1) Normal left ventricular thickness, size, wall motion, and systolic function (EF 60-65%). 2) Grossly, normal right ventricular size and function. 3) Mild to moderate mitral regurgitation and mild to moderate tricuspid regurgitation present. 4) The right ventricular systolic pressure is estimated to be at least 50 mmHg based on an estimated right atrial pressure of 3 mm Hg. 5) Compared to the Echo done 07/31/2018, mitral regurgitation has progressed from mild to mild-moderate on this study. Procedure: A two-dimensional transthoracic echocardiogram with color flow and Doppler was performed. The study quality was technically adequate. Comparison is made with the echocardiogram of 12-28-18. The patient was in normal sinus rhythm during the exam. Left Ventricle: The left ventricle is normal in size, wall thickness, and systolic function without any focal wall motion abnormalities. The ejection fraction is estimated to be 60-65%. Diastolic parameters suggest a pseudonormalization pattern, consistent with probable elevated filling pressures. Right Ventricle: The right ventricle grossly appears normal in size with probable normal systolic function. Atria: The left atrium is borderline dilated. Right atrial size is normal. The interatrial septum is intact with no evidence for an atrial septal defect. Mitral Valve: The mitral valve leaflets appear borderline thickened, but open well. There is mild to moderate mitral regurgitation. Aortic Valve: The aortic valve opens well. No aortic regurgitation is present. Tricuspid Valve: The tricuspid valve leaflets are thin and pliable. There is mild to moderate tricuspid regurgitation. The right ventricular systolic pressure is estimated to be at least 50 mmHg based on an estimated right atrial pressure of 3 mm Hg. Pulmonic Valve: The pulmonic valve is not well seen, but is grossly normal. There is trace pulmonic regurgitation. Great Vessels: The aortic root is normal size. The ascending aorta is at the upper limits of normal in size. The aortic arch is normal in size. The IVC is of normal diameter and collapses greater than 50% with a sniff. This suggests a low right atrial pressure of 3 mm Hg. Pericardium/ Pleura There is no pericardial effusion. There is no pleural effusion. MMode/2D Measurements & Calculations LVIDd: 4.6 cm Ao root diam: 2.9 cm LVIDs: 2.9 cm Aortic Jxn: 2.7 cm FS: 37.1 % asc Aorta Diam: 3.5 cm EPSS: 0.14 cm Ao Arch Diam (Prox Trans): 2.8 cm IVSd: 1.1 cm LVPWd: 0.94 cm LV peters. diameter/BSA (cm/m^2): 2.3 LV sys. diameter/BSA (cm/m^2): 1.4 LA dimension: 4.9 cm RA long axis: 5.1 cm LA A2 area: 19.2 cm2 RA area: 17.4 cm2 LA A4 area: 23.5 cm2 RA vol: 50.2 ml LA length (vol): 5.8 cm RA : 24.6 ml/m2 LA vol: 65.7 ml IVC diam: 1.6 cm LA vol index: 32.1 ml/m2 RVDd major: 5.7 cm RVD1 (basal): 3.6 cm RVD2 (mid): 3.0 cm Doppler Measurements & Calculations Ao V2 max: 162.5 cm/sec MV E max bony: 124.3 cm/sec Ao V2 mean: 106.7 cm/sec MV A max bony: 97.9 cm/sec Ao max P.6 mmHg MV E/A: 1.3 Ao mean P.2 mmHg Med Peak E' Bony: 5.6 cm/sec Ao V2 VTI: 39.0 cm E/E' med: 22.3 Lat Peak E' Bony: 6.2 cm/sec E/E' lat: 20.0 E/e' average: 21.1 MV dec time: 0.16 sec MV P1/2t: 47.7 msec MR ERO: 0.22 cm2 TR max bony: 343.0 cm/sec MV P1/2t max bony: 121.9 cm/sec TR max P.1 mmHg MVA(P1/2t): 4.6 cm2 PA V2 max: 81.9 cm/sec PA V2 mean: 55.7 cm/sec PA mean P.4 mmHg PA Accel Time: 0.13 sec MR flow rate: 117.5 cm3/sec MR PISA radius: 0.69 cm Reading Physician:11:51 PM
== END ==
PROVIDERS: Family Provider Internal Medicine Hematology & Oncology; PCP Family Medicine; Visit Provider Internal Medicine Cardiovascular Disease
DX: I08.1 Rheumatic disorders of both mitral and tricuspid valves (principal); I27.20 Pulmonary hypertension, unspecified; Z09 Encounter for follow-up examination after completed treatment for conditions other than malignant neoplasm
CPT/HCPCS: 93306

== ENCOUNTER → 2018-12-30 09:04 | Outpatient (CLI) | payer MEDICARE, OTHER, SELFPAY ==
[2018-01-22 13:41] VITALS: BMI 35.1
--- NOTE | 2018-12-30 | DI.ECHO.S_ITS ---
[facility] +---------+ [facility] +---------+ : : [address] : : : : [id number] : : : : Phone: [phone]+ Echocardiogram Report + + :Name: MARY DELGADO Study Date: 12/30/2018 Height: 64 in : :[facility] Exam Location: [facility] Weight: 222 lb : : Gender: Female BSA: 2.0 m2 : :: 1940 Age: 78 yrs BP: 122/70 mmHg: :Reason For Study: Pulmonary - Hypertension : :Ordering Physician: Moises Gonzalez : :Chloe Performed By: Yas Page : + + Interpretation Summary 1) Normal left ventricular thickness, size, wall motion, and systolic function (EF 60-65%). 2) Grossly, normal right ventricular size and function. 3) Diastolic parameters suggest a pseudonormalization pattern, consistent with probable elevated filling pressures. 4) There is mild to moderate mitral regurgitation. 5) The right ventricular systolic pressure is estimated to be at least 38 mmHg based on an estimated right atrial pressure of 3 mm Hg. 6) Compared to the Echo done 10/12/2018, systolic PA pressure has decreaed from 50mmHG to 38mmHg on this study. Procedure: A two-dimensional transthoracic echocardiogram with color flow and Doppler was performed. The study quality was technically adequate. Comparison is made with the echocardiogram of 10/12/2018. The patient was in sinus bradycardia with heart rates between 51-55 bpm during the exam. Left Ventricle: The left ventricle is normal in size, wall thickness, and systolic function without any focal wall motion abnormalities. The ejection fraction is estimated to be 60-65%. Diastolic parameters suggest a pseudonormalization pattern, consistent with probable elevated filling pressures. Right Ventricle: The right ventricle is mildly dilated. The right ventricular systolic function is normal. Atria: The left atrium is moderately dilated. The right atrium is mildly dilated. There is no Doppler evidence for an interatrial shunt. Mitral Valve: The mitral valve leaflets appear mildly thickened, but open well. There is mild to moderate mitral regurgitation. Aortic Valve: The aortic valve is trileaflet. The aortic valve opens well. There is no aortic valve stenosis. No aortic regurgitation is present. Tricuspid Valve: The tricuspid valve leaflets are thin and pliable. There is mild tricuspid regurgitation. The right ventricular systolic pressure is estimated to be at least 38 mmHg based on an estimated right atrial pressure of 3 mm Hg. Pulmonic Valve: The pulmonic valve is not well visualized. There is trace pulmonic regurgitation. Great Vessels: The aortic root is normal size. The ascending aorta is at the upper limits of normal in size. The pulmonary artery is not well visualized, but is probably normal size. The IVC is of normal diameter and collapses greater than 50% with a sniff. This suggests a low right atrial pressure of 3 mm Hg. Pericardium/ Pleura There is no pericardial effusion. There is no pleural effusion. MMode/2D Measurements & Calculations LVIDd: 5.0 cm LVOT diam: 1.9 cm LVIDs: 3.2 cm Ao root diam: 3.4 cm FS: 35.2 % asc Aorta Diam: 3.4 cm EPSS: 0.00 cm IVSd: 1.1 cm LVPWd: 0.76 cm LV peters. diameter/BSA (cm/m^2): 2.4 LV sys. diameter/BSA (cm/m^2): 1.6 LA A2 area: 27.5 cm2 RA long axis: 5.2 cm LA A4 area: 25.8 cm2 RA area: 20.9 cm2 LA length (vol): 5.8 cm RA vol: 71.2 ml LA vol: 103.8 ml RA : 34.8 ml/m2 LA vol index: 50.8 ml/m2 IVC diam: 1.5 cm RVD1 (basal): 4.8 cm Doppler Measurements & Calculations Ao V2 max: 138.3 cm/sec LVOT Max Bony: 89.0 cm/sec Ao V2 mean: 97.9 cm/sec LV V1 max P.2 mmHg Ao max P.6 mmHg LV V1 VTI: 20.9 cm Ao mean P.1 mmHg STEPHANIE(I,D): 1.9 cm2 Ao V2 VTI: 30.4 cm STEPHANIE(V,D): 1.7 cm2 sev ratio: 0.69 STEPHANIE indexed to BSA (cm^2/m^2): 0.91 MV E max bony: 116.5 cm/sec TR max bony: 297.6 cm/sec MV A max bony: 78.9 cm/sec TR max P.4 mmHg MV E/A: 1.5 PA V2 max: 71.6 cm/sec Med Peak E' Bony: 5.3 cm/sec PA V2 mean: 49.2 cm/sec E/E' med: 22.1 PA mean P.1 mmHg Lat Peak E' Bony: 5.6 cm/sec PA Accel Time: 0.09 sec E/E' lat: 20.9 E/e' average: 21.5 MV dec time: 0.17 sec MV P1/2t: 48.3 msec MV P1/2t max bony: 116.7 cm/sec SV(LVOT): 56.4 ml MVA(P1/2t): 4.6 cm2 Reading Physician:01:09 PM
== END ==
PROVIDERS: Family Provider Internal Medicine Hematology & Oncology; PCP Family Medicine; Visit Provider Internal Medicine Cardiovascular Disease
DX: I27.20 Pulmonary hypertension, unspecified (principal); I08.1 Rheumatic disorders of both mitral and tricuspid valves
CPT/HCPCS: 93306

== ENCOUNTER → 2019-03-18 13:26 | Outpatient (CLI) | payer MEDICARE, OTHER, SELFPAY ==
[2018-01-22 13:41] VITALS: BMI 35.1
--- NOTE | 2019-03-18 | DI.CT.S_ITS ---
PROCEDURE: CT ABDOMEN PELVIS WO/W CON INDICATIONS: upper urinary infections TECHNIQUE: Optional 5 mm thick noncontrast images acquired from the diaphragm to the symphysis pubis. After the administration of intravenous contrast, 5 mm thick images acquired from the diaphragm to the symphysis pubis after a 10-minute delay. 2 mm thick coronal and sagittal reformats were then performed of the kidneys and ureters. For radiation dose reduction, the following was used: automated exposure control, adjustment of mA and/or kV according to patient size. COMPARISON: None. FINDINGS: Image quality: Excellent. Lung bases: Lung bases are clear. Heart size is normal. Urinary system: Both kidneys are normal in size, without hydronephrosis or left-sided nephrolithiasis on pre-contrast images. There is a 2 mm calculus within a nondistended calyx of the lower anterior right kidney. 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 There is normal bilateral renal enhancement. Renal calyces appear normal in morphology when filled with contrast. Opacified portions of both ureters demonstrate normal caliber. Bladder wall thickness is normal. No calcified bladder stones. Other solid organs: Liver is normal in size and enhancement. Gallbladder appears normal. Biliary system is non dilated. Pancreas enhances normally. Spleen is normal in size and enhancement. No adrenal nodules. Peritoneum and bowel: Bowel loops demonstrate normal wall thickness and caliber. No free fluid or air. Nodes and vessels: No retroperitoneal or mesenteric adenopathy by size criteria. Aorta and inferior vena cava are normal in size. Abdominal wall: No ventral hernias. Pelvis: No pathologic free pelvic fluid. No inguinal hernias or adenopathy. Bones: No suspicious bony lesions. No vertebral body compression fractures. 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 No renal cortical inflammation or urinary tract obstruction is found. Dictated by: Aguilar Ni M.D. on 03/19/2019 at 10:25 Approved by: Aguilar Ni M.D. on 03/19/2019 at 10:35
[2019-03-18 13:46] LABS: Add Manual Diff / Slide Review NO; Basophils Absolute Auto 100 /uL (0-100); Basophils Percent Auto 0.7 % (0-2); Eosinophils Absolute Auto 100 /uL (0-450); Eosinophils Percent Auto 1.1 % (2-4); Lymphocytes Absolute Auto 1800 /uL (1100-4500); Lymphocytes Percent Auto 17.4 % (25-40); Mean Corpuscular HGB Conc 33.4 % (30-36); Mean Corpuscular Hemoglobin 30.6 PG (26-34); Mean Corpuscular Volume 91.5 fL (80-100); Monocytes Absolute Auto 900 /uL (0-900); Monocytes Percent Auto 8.6 % (3-14); Neutrophils Absolute Auto 7400 /uL (1500-7000); Neutrophils Percent Auto 72.2 % (50-75); Platelet Count 200 X10^3/uL (150-400); Red Blood Cell Count 4.59 X10^6/uL (4.0-5.2); Red Cell Distribution Width 14.3 % (11.6-14.8); White Blood Cell Count 10.2 X10^3/uL (4.5-11.0)
[2019-03-18 13:59] LABS: Alanine Aminotransferase 24 IU/L (9-52); Albumin 4.2 g/dL (3.5-5.0); Albumin Globulin Ratio 1.1 (1.0-2.8); Alkaline Phosphatase 105 U/L (38-126); Aspartate Aminotransferase 24 IU/L (14-36); BUN Creatinine Ratio 22.3 (6-22); Bilirubin Total 0.6 mg/dL (0.2-1.3); Blood Urea Nitrogen 29 mg/dL (7-17); Calcium 10.2 mg/dL (8.4-10.2); Carbon Dioxide 25 mmol/L (22-32); Chloride 102 mmol/L (98-107); Estimated Glomerular Filt Rate 39.5 mL/min (>60); Globulin 3.8 g/dL (1.7-4.1); Glucose 127 mg/dL (80-110); HEMOLYSIS < 15 (0-50); Potassium 4.5 mmol/L (3.4-5.1); Sodium 140 mmol/L (137-145)
== END ==
PROVIDERS: Family Provider Internal Medicine Hematology & Oncology; PCP Family Medicine; Visit Provider Student in an Organized Health Care Education/Training Program
DX: N39.0 Urinary tract infection, site not specified (principal); C50.911 Malignant neoplasm of unspecified site of right female breast; N20.0 Calculus of kidney
CPT/HCPCS: 36415; 74178; 80053; 85025; Q9967

== ENCOUNTER → 2019-05-05 14:50 | Outpatient (CLI) | payer MEDICARE, OTHER, SELFPAY ==
[2018-01-22 13:41] VITALS: BMI 35.1
--- NOTE | 2019-05-05 | DI.ECHO.S_ITS ---
[place] +---------+ Hospital +---------+ : : [address] : [address] : : : : [id number] : : : : Phone: [phone]+ Echocardiogram Report + + :Name: MARY DELGADO Study Date: 05/05/2019 Height: 64 in : :[facility] Exam Location: [facility] Weight: 218 lb : : Gender: Female BSA: 2.0 m2 : :: 1940 Age: 78 yrs BP: 130/78 mmHg: :Reason For Study: Pulmonary - Hypertension : :Ordering Physician: Moises Gonzalez : :Chloe Performed By: Yas Page : + + Interpretation Summary 1) Normal left ventricular size, wall motion, and systolic function (EF 60- 65%). 2) Grossly, normal right ventricular size and function. 3) Diastolic parameters suggest a pseudonormalization pattern, consistent with probable elevated filling pressures. 4) No signifcant valvular abnormalities. 5) The right ventricular systolic pressure is estimated to be at least 35 mmHg based on an estimated right atrial pressure of 3 mm Hg. 6) Compared to the Echo done 12/30/2018, no significant change. Procedure: A two-dimensional transthoracic echocardiogram with color flow and Doppler was performed. The study quality was technically adequate. Comparison is made with the echocardiogram of 12/30/2018. The patient was in sinus bradycardia with heart rates between 52-60 bpm during the exam. Left Ventricle: Left ventricular wall thickness is mildly increased. The left ventricle is normal in size. The ejection fraction is estimated to be 60- 65%. There are no focal wall motion abnormalities. Diastolic parameters suggest a pseudonormalization pattern, consistent with probable elevated filling pressures. Right Ventricle: The right ventricle grossly appears normal in size with probable normal systolic function. Atria: The left atrium is moderately dilated. The right atrium is normal in size. There is no Doppler evidence for an interatrial shunt. Mitral Valve: The mitral valve leaflets appear mildly thickened, but open well. There is mild mitral annular calcification. There is mild mitral regurgitation. Aortic Valve: The aortic valve is trileaflet. The aortic valve opens well. There is no aortic valve stenosis. No aortic regurgitation is present. Tricuspid Valve: The tricuspid valve is normal in structure and function. There is mild tricuspid regurgitation. The right ventricular systolic pressure is estimated to be at least 35 mmHg based on an estimated right atrial pressure of 3 mm Hg. Pulmonic Valve: The pulmonic valve is not well visualized. There is a trace or physiologic amount of pulmonic regurgitation. Great Vessels: The aortic root is normal size. The ascending aorta is mildly enlarged. The pulmonary is not well visualized. The IVC is of normal diameter and collapses greater than 50% with a sniff. This suggests a low right atrial pressure of 3 mm Hg. Pericardium/ Pleura There is no pericardial effusion. There is no pleural effusion. MMode/2D Measurements & Calculations LVIDd: 4.5 cm LVOT diam: 1.9 cm LVIDs: 3.0 cm Ao root diam: 2.9 cm FS: 32.8 % asc Aorta Diam: 3.5 cm IVSd: 1.1 cm LVPWd: 0.95 cm LV peters. diameter/BSA (cm/m^2): 2.2 LV sys. diameter/BSA (cm/m^2): 1.5 LA A2 area: 22.7 cm2 RA long axis: 4.7 cm LA A4 area: 23.2 cm2 RA area: 17.2 cm2 LA length (vol): 5.3 cm RA vol: 53.3 ml LA vol: 84.3 ml RA : 26.2 ml/m2 LA vol index: 41.6 ml/m2 RVD1 (basal): 4.0 cm RVD2 (mid): 3.0 cm TAPSE: 1.8 cm Doppler Measurements & Calculations Ao V2 max: 154.4 cm/sec LVOT Max Bony: 96.9 cm/sec Ao V2 mean: 104.2 cm/sec LV V1 max P.8 mmHg Ao max P.5 mmHg LV V1 VTI: 22.3 cm Ao mean P.8 mmHg STEPHANIE(I,D): 1.9 cm2 Ao V2 VTI: 32.9 cm STPEHANIE(V,D): 1.7 cm2 sev ratio: 0.68 STEPHANIE indexed to BSA (cm^2/m^2): 0.92 MV E max bony: 73.7 cm/sec TR max bony: 280.5 cm/sec MV A max bony: 96.4 cm/sec TR max P.5 mmHg MV E/A: 0.76 PA V2 max: 81.6 cm/sec Med Peak E' Bony: 4.1 cm/sec PA V2 mean: 48.7 cm/sec E/E' med: 17.9 PA mean P.1 mmHg Lat Peak E' Bony: 4.6 cm/sec PA Accel Time: 0.08 sec E/E' lat: 15.9 E/e' average: 16.9 MV dec time: 0.26 sec MV P1/2t: 77.3 msec MV P1/2t max bony: 74.2 cm/sec SV(LVOT): 61.7 ml MVA(P1/2t): 2.8 cm2 Reading Physician:10:45 AM
== END ==
PROVIDERS: Family Provider Internal Medicine Hematology & Oncology; PCP Family Medicine; Visit Provider Internal Medicine Cardiovascular Disease
DX: I08.1 Rheumatic disorders of both mitral and tricuspid valves (principal); I27.20 Pulmonary hypertension, unspecified; I77.89 Other specified disorders of arteries and arterioles
CPT/HCPCS: 93306

== ENCOUNTER → 2019-06-04 14:51 | Outpatient (CLI) | payer MEDICARE, OTHER, SELFPAY ==
[2018-01-22 13:41] VITALS: BMI 35.1
--- NOTE | 2019-06-04 14:53 | DI.MG.S_ITS ---
UNILATERAL LEFT DIGITAL SCREENING MAMMOGRAM 3D/2D WITH CAD POST MASTECTOMY: 06/04/2019 CLINICAL: Routine screening. Personal history of right breast cancer. Family history of breast cancer. Comparison is made to exams dated: 06/24/2017 mammogram, 06/18/2016 mammogram, 11/27/2015 mammogram, 03/24/2015 mammogram - [facility], and 07/03/2010 mammogram - [facility]. The tissue of left breast is heterogeneously dense. This may lower the sensitivity of mammography. Current study was also evaluated with a Computer Aided Detection (CAD) system. There are benign vascular calcifications in the left breast. There also are post operative findings in the left breast with parenchymal scarring that is stable to prior exams. There are mole markers on the left breast. No significant masses, calcifications, or other findings are seen in the breast. There has been no significant interval change. IMPRESSION: There is no mammographic evidence of malignancy. A 1 year screening mammogram is recommended. This exam was interpreted at Station ID: [id number]. NOTE: For mammograms, a report in lay terms will be sent to the patient. Approximately 15% of breast malignancies will not be visualized mammographically. In the management of a palpable breast mass, a negative mammogram must not discourage biopsy of a clinically suspicious lesion. Electronically Signed By: Karri Ibarra M.D. ecl/:06/04/2019 21:51:12 copy to: Ham Gasca letter sent: Normal Exam ACR BI-RADS Category 2: Benign Finding(s) 3342F
--- NOTE | 2019-06-04 14:53 | DI.US.S_ITS ---
PROCEDURE: US ABDOMEN LIMITED INDICATIONS: RIGHT UPPER ABDOMEN SUBCUTANEOUS MASS, 3CM TECHNIQUE: Real-time focused scanning was performed of the abdomen, with image documentation. COMPARISON: [facility], CR, XR FEMUR LT MIN 2V, 01/07/2018, 13:02. [facility], CT, CT ABDOMEN PELVIS WO/W CON, 03/18/2019, 14:12. FINDINGS: Targeted sonographic imaging was performed to evaluate the patient's palpable abnormality along the anterior aspect of the right upper quadrant of the abdomen. At this location there is a 3.7 x 1.8 x 4.6 cm well-circumscribed ovoid lesion identified within the subcutaneous tissues that does not demonstrate internal vascularity and demonstrates similar imaging characteristics to the adjacent subcutaneous fat. No fluid collections are evident. 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 If this structure is increasing in size, please consider MRI with intravenous contrast 4 further evaluation. Dictated by: Jero Arenas M.D. on 06/04/2019 at 15:08 Approved by: Jero Arenas M.D. on 06/04/2019 at 15:10
== END ==
PROVIDERS: Family Provider Family Medicine; PCP Family Medicine; Visit Provider Internal Medicine Hematology & Oncology
DX: Z12.31 Encounter for screening mammogram for malignant neoplasm of breast (principal); Z80.3 Family history of malignant neoplasm of breast; C50.411 Malignant neoplasm of upper-outer quadrant of right female breast; Z17.1 Estrogen receptor negative status [ER-]
CPT/HCPCS: 76705; 77063; 77067

== ENCOUNTER → 2019-09-16 11:57 | Outpatient (CLI) | payer MEDICARE, OTHER, SELFPAY ==
[2018-01-22 13:41] VITALS: BMI 35.1
--- NOTE | 2019-09-16 13:07 | DI.MRI.S_ITS ---
PROCEDURE: MR ABDOMEN WO/W CON INDICATIONS: abdomen wall sq nodule TECHNIQUE: Coronal HASTE, axial 2D FLASH in- and [id number]; axial breath-hold T2 FSE. Dynamic axial VIBE during the administration of contrast; post-contrast coronal VIBE or 2D FLASH with fat saturation from the hepatic dome to the iliac crests. Optional diffusion weighted imaging and ADC may be performed. COMPARISON: Merged With [facility], CT, ABDOMEN/PELVIS WITH CONTRAST, 10/09/2017, 15:52. Merged With [facility], CT, CT ABDOMEN PELVIS WO/W CON, 03/18/2019, 14:12. Merged With [facility], US, US ABDOMEN LIMITED, 06/04/2019, 15:25. FINDINGS: Image quality: Excellent. Lung bases: No basal pleural effusions. Heart size is normal. Small hiatal hernia. Findings of prior right mastectomy. There is scarring along the inferior right anterior chest wall. Susceptibility artifact due to clips seen on CT. Solid organs: Liver is normal in size and enhancement. No significant steatosis. A few small benign hepatic cysts. Gallbladder is unremarkable. Biliary system is non dilated. Pancreas is normal in morphology. No pancreatic ductal dilatation. There is an incidental pancreatic cyst in the body measuring 6 mm, (10/16). No suspicious imaging features noted. Spleen is normal in size and enhancement. Small splenule noted. No adrenal nodules. Both kidneys demonstrate normal size and enhancement, without hydronephrosis. Abdominal wall and nodes and vessels: No subcutaneous mass identified in the right upper quadrant subcutaneous abdominal wall at the site of recently seen subcutaneous nodule measuring 3.7 cm on ultrasound. No suspicious enhancement or restricted diffusion. Of note there is mild scarring and susceptibility artifact in the inferior right chest wall, (18/5) which appears similar to CT 03/18/2019. No retroperitoneal or mesenteric adenopathy by size criteria. Aorta and inferior vena cava are normal in size. Bowel and peritoneum: Unenhanced bowel loops are normal in caliber. The appendix is unremarkable. No free fluid. Bones and soft tissues: No ventral hernias. Bone marrow is normal in overall signal. IMPRESSION: 1. Previously seen right upper artery and subcutaneous abdominal wall mass is not identified. This is likely due to its homogeneity with the surrounding fat. Less likely this could be obscured due to mild scaring in the lower right chest wall and susceptibility artifact creating inhomogeneity in the fat suppression. -If the mass demonstrates increase in size recommend ultrasound-guided biopsy to confirm benign nature given the patient's history of breast cancer and the lesions location. 2. Incidental pancreatic body cystic lesion measuring 6 mm. No suspicious imaging features demonstrated. This is not visualized on the prior CTs likely due to its small size. 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 Followup MRI of the pancreas and could be considered in this older patient in approximately 2 years. Dictated by: Hang Lebron M.D. on 09/17/2019 at 8:12 Approved by: Hang Lebron M.D. on 09/17/2019 at 8:35
== END ==
PROVIDERS: Family Provider Family Medicine; PCP Family Medicine; Referring Provider Internal Medicine Hematology & Oncology; Visit Provider Internal Medicine Hematology & Oncology
DX: C50.411 Malignant neoplasm of upper-outer quadrant of right female breast (principal); R19.01 Right upper quadrant abdominal swelling, mass and lump; K44.9 Diaphragmatic hernia without obstruction or gangrene; K76.89 Other specified diseases of liver; K86.2 Cyst of pancreas; Z17.1 Estrogen receptor negative status [ER-]; Z90.11 Acquired absence of right breast and nipple
CPT/HCPCS: 74183; Q9967

== ENCOUNTER → 2019-12-23 12:47 | Outpatient (CLI) | payer MEDICARE, OTHER, SELFPAY ==
[2018-01-22 13:41] VITALS: BMI 35.1
--- NOTE | 2019-12-23 12:50 | DI.US.S_ITS ---
PROCEDURE: US ABDOMEN LIMITED INDICATIONS: LT UPPER ABD WALL SUBCUTANEOUS 0.5 X 1 CM NODULE TECHNIQUE: Real-time focused scanning was performed of the abdomen, with image documentation. COMPARISON: [facility], , US ABDOMEN LIMITED, 06/04/2019, 15:25. FINDINGS: Examination of left upper quadrant anterior abdominal wall shows 1.9 x 1.3 x 2.5 cm solid and slightly hyperechoic mass within subcutaneous soft tissue. No underlying muscle involvement is seen. No internal vascularity is noted. IMPRESSION: Findings likely represent lipoma within the left anterior upper abdominal wall subcutaneous soft tissue. Clinical and sonographic followup is recommended. Dictated by: Jacinto Jay M.D. on 12/23/2019 at 13:21 Approved by: Jacinto Jay M.D. on 12/23/2019 at 13:23
== END ==
PROVIDERS: Family Provider Family Medicine; PCP Family Medicine; Referring Provider Internal Medicine Hematology & Oncology; Visit Provider Internal Medicine Hematology & Oncology
DX: C50.911 Malignant neoplasm of unspecified site of right female breast (principal); R22.2 Localized swelling, mass and lump, trunk
CPT/HCPCS: 76705

== ENCOUNTER → 2020-05-31 10:40 | Outpatient (CLI) | payer MEDICARE, OTHER, SELFPAY ==
[2018-01-22 13:41] VITALS: BMI 35.1
--- NOTE | 2020-05-31 | DI.NM.S_ITS ---
PROCEDURE: NH BONE 3 PHASE RADIOPHARMACEUTICAL: 20.0 mCi Tc-99m MDP IV. INDICATIONS: CHRONIC PAIN OF LEFT KNEE TECHNIQUE: Multiple bone scintigrams were obtained after intravenous injection of Tc-99m MDP, including flow, blood pool, and delayed images centered to the region of interest. COMPARISON: [facility] [place], CR, XR KNEE ARTHRITIC SERIES BI, 05/06/2018, 13:34. [facility], CR, XR KNEE LT 3V, 01/07/2018, 13:02. [facility] [place], CR, KNEE SERIES LT, 12/27/2016, 14:10. [facility], MR, KNEE WITHOUT CONTRAST, 01/18/2016, 16:34. [facility], NM, NM BONE SCAN WHOLE BODY, 08/28/2018, 12:58. FINDINGS: Flow, blood pool and delayed images were obtained centered to the knees. There is symmetric vascular activity to the lower extremities on flow and blood pool images. Delayed images demonstrate photopenia in left knee consistent with arthroplasty. Low-level increased uptake around left knee prosthesis is consistent with postsurgical change. Increased activity is present in right knee, most pronounced in the lateral compartment of the right knee is consistent with degenerative joint disease. IMPRESSION: 1. Left knee arthroplasty with expected postsurgical change. No scintigraphic findings to suggest prosthesis loosening or infection. Recommend clinical and radiographic correlation. 2. Degenerative joint disease in the right knee. Dictated by: Gabbie Young M.D. on 05/31/2020 at 16:30 Approved by: Gabbie Young M.D. on 05/31/2020 at 18:42
== END ==
PROVIDERS: Family Provider Family Medicine; PCP Family Medicine; Referring Provider Orthopaedic Surgery; Visit Provider Orthopaedic Surgery
DX: M25.562 Pain in left knee (principal); G89.29 Other chronic pain; M17.11 Unilateral primary osteoarthritis, right knee; Z96.652 Presence of left artificial knee joint
CPT/HCPCS: 78315; A9503

== ENCOUNTER → 2020-08-16 10:02 | Outpatient (CLI) | payer MEDICARE, OTHER, SELFPAY ==
[2018-01-22 13:41] VITALS: BMI 35.1
--- NOTE | 2020-08-16 | DI.MG.S_ITS ---
UNILATERAL LEFT DIGITAL SCREENING MAMMOGRAM 3D/2D WITH CAD POST MASTECTOMY: 08/16/2020 CLINICAL: Routine screening. Family history of breast cancer. Breast cancer. Comparison is made to exams dated: 06/04/2019 mammogram, 06/24/2017 mammogram, and 06/18/2016 mammogram - [facility]. There are scattered fibroglandular elements in left breast. Current study was also evaluated with a Computer Aided Detection (CAD) system. There are benign vascular calcifications in the left breast. There also are benign post operative findings in the left breast. There are mole markers on the left breast. No significant masses, calcifications, or other findings are seen in the breast. There has been no significant interval change. IMPRESSION: BENIGN There is no mammographic evidence of malignancy. A 1 year screening mammogram is recommended. This exam was interpreted at Station ID: [id number]. NOTE: For mammograms, a report in lay terms will be sent to the patient. Approximately 15% of breast malignancies will not be visualized mammographically. In the management of a palpable breast mass, a negative mammogram must not discourage biopsy of a clinically suspicious lesion. Electronically Signed By: Adela hartman/jaya:08/16/2020 11:39:46 copy to: Ham Gasca letter sent: Normal Exam ACR BI-RADS Category 2: Benign Finding(s) 3342F
== END ==
PROVIDERS: Family Provider Family Medicine; PCP Family Medicine; Referring Provider Internal Medicine Hematology & Oncology; Visit Provider Internal Medicine Hematology & Oncology
DX: Z12.31 Encounter for screening mammogram for malignant neoplasm of breast (principal)
CPT/HCPCS: 77063; 77067

== ENCOUNTER → 2020-10-06 10:07 | Outpatient (CLI) | payer MEDICARE, OTHER, SELFPAY ==
[2020-09-08 11:42] VITALS: BMI 35.1
[2020-10-06 10:49] LABS: COVID19 -Nasal RAPID Negative (Negative)
== END ==
PROVIDERS: Family Provider Family Medicine; PCP Family Medicine; Visit Provider Surgery
DX: Z20.822 Contact with and (suspected) exposure to COVID-19 (principal)
CPT/HCPCS: 87635; C9803

== ENCOUNTER 2020-10-09 09:32 | Day surgery (SDC) | payer MEDICARE, OTHER, SELFPAY ==
[2020-09-08 11:42] VITALS: BMI 35.1
[2020-10-09] MEDS: LACTATED RINGERS 1,000 ML 42 ML IV (09:44)
[2020-10-09 10:05] VITALS: BP 158/87; PULSE 66; RESP 14; TEMP 36.9; O2SAT 93; BMI 37.8
--- NOTE | 2020-10-09 10:33 | PM.PREOP ---
Pre-operative Note COVID-19 COVID-19 status: Negative Result date/Date tested (Pos, Neg/Pending): 10/06/20 Interval Note History & Physical reviewed/Exam performed by Physician: Yes Changes to H&P: No
[2020-10-09] MEDS: CEFAZOLIN 2 GM/100 ML FROZ.PIGGY IV (10:54)
--- NOTE | 2020-10-09 11:03 | SUR.OPER ---
Supine on padded OR bed, head on pillow, arms secured on padded arm boards at <90 degrees abduction, legs uncrossed, safety belt at thigh, tape over blanket over lower legs.
[2020-10-09] MEDS: BUPIVACAINE 0.5% W/ EPI (PF) 30 ML VIAL INJ (11:06)
--- NOTE | 2020-10-09 11:17 | PM.OP.1 ---
Operative Date/Time/Diagnoses Date of procedure: 10/09/20 Time of procedure: 11:17 Pre-op diagnosis: Portacath in place, left chest Post-op diagnosis: same Procedure & Clinicians Procedure: Portacath removal Same procedure as scheduled: Yes Indications: Portacath in place, no longer needed Surgeon: Lisa Hines Click Yes if Unassisted: Yes Anesthesia Type: General Operative Notes Findings: Portacath intact Specimen(s): other (Portacath) Estimated Blood Loss (mL): 1 Procedure in detail: Patient was placed supine on the operating room table and underwent general LMA anesthesia. Perioperative antibiotics were given. Timeout was conducted. The neck and chest were prepped and draped in the usual fashion. Local anesthetic was infiltrated beneath the skin overlying the left chest portacath incisional scar. A 3 cm transverse incision was then made in the skin of the left chest through the incisional scar. Dissection was carried down through the dermis, and the portacath was grasped with a hemostat. The tubing associated with the port was grasped and freed from the surrounding fat tissue using cautery. Once free, the tubing was pulled out of the vein, and pressure was held on the exit point, with no back bleeding seen. The port was then dissected free from the chest wall, and then entire port and tubing were passed off the field. The scarred tissue within the portacath pocket was cauterized and removed to avoid seroma. Hemostasis was achieved with cautery. The wound was irrigated. The skin was then closed with 3 0 Vicryl in the deep dermis and 4 0 Monocryl subcuticular, and the skin incisions were sealed with Dermabond. This concluded the procedure and the patient was awakened from anesthesia and transferred to the postanesthesia care unit in stable condition. Needle sponge and instrument counts were correct x2 at the end of the case. The patient tolerated the procedure well and was transferred to the PACU in stable condition. Complications: none Post-operative Condition: stable Disposition: PACU
[2020-10-09 11:24] VITALS: BP 108/61; PULSE 63; RESP 13; TEMP 36.8; O2SAT 95
[2020-10-09 11:30] VITALS: BP 133/70; PULSE 61; RESP 12; O2SAT 95
[2020-10-09 11:35] VITALS: BP 128/64; PULSE 66; RESP 16; O2SAT 96
== END 2020-10-09 12:06 | disposition home or self-care (01) ==
PROVIDERS: Family Provider Family Medicine; PCP Family Medicine; Referring Provider Surgery; Visit Provider Surgery
PROC: (CPT 36590; principal; 2020-10-09 10:45)
DX: Z45.2 Encounter for adjustment and management of vascular access device (principal); Z85.3 Personal history of malignant neoplasm of breast; I10 Essential (primary) hypertension; K21.9 Gastro-esophageal reflux disease without esophagitis; F41.9 Anxiety disorder, unspecified; E78.5 Hyperlipidemia, unspecified; E66.9 Obesity, unspecified; Z68.35 Body mass index [BMI] 35.0-35.9, adult
CPT/HCPCS: 36590; J0690; J1100; J2405; J2704; J3010

== ENCOUNTER → 2021-02-14 14:32 | Outpatient (CLI) | payer MEDICARE, OTHER, SELFPAY ==
[2021-01-22 11:06] VITALS: BMI 35.1
--- NOTE | 2021-02-14 14:33 | DI.US.S_ITS ---
PROCEDURE: US ABDOMEN LIMITED INDICATIONS: ABDOMINAL WALL MASS TO THE LEFT OF UMBILICUS TECHNIQUE: Real-time scanning was performed of the abdominal and retroperitoneal organs, with image documentation. COMPARISON: [facility], , US ABDOMEN LIMITED, 12/23/2019, 13:01. FINDINGS: Multiple grayscale images of the anterior abdominal wall were acquired over the patient directed area of patient concern. The area to the left of the umbilicus was scanned. No suspicious mass, hernia, or abnormal fluid collection seen. Normal appearance of the skin and underlying subcutaneous soft tissues. IMPRESSION: Abdomen without sonographic abnormalities. Dictated by: Truman Waters M.D. on 02/14/2021 at 16:01 Approved by: Truman Waters M.D. on 02/14/2021 at 16:02
== END ==
PROVIDERS: Family Provider Family Medicine; PCP Family Medicine; Referring Provider Internal Medicine Hematology & Oncology; Visit Provider Internal Medicine Hematology & Oncology
DX: C50.911 Malignant neoplasm of unspecified site of right female breast (principal); R19.05 Periumbilic swelling, mass or lump
CPT/HCPCS: 76705

== ENCOUNTER → 2021-02-28 15:17 | Outpatient (CLI) | payer MEDICARE, OTHER, SELFPAY ==
[2021-01-22 11:06] VITALS: BMI 35.1
[2021-02-28 16:08] LABS: COVID19 -Nasal RAPID Negative (Negative)
== END ==
PROVIDERS: Family Provider Family Medicine; PCP Family Medicine; Visit Provider Surgery
DX: Z20.822 Contact with and (suspected) exposure to COVID-19 (principal)
CPT/HCPCS: 87635; C9803

== ENCOUNTER 2021-03-01 14:11 | Day surgery (SDC) | payer MEDICARE, OTHER, SELFPAY ==
[2021-01-22 11:06] VITALS: BMI 35.1
[2021-03-01] VITALS (7 sets, daily range): BP systolic 150–174; BP diastolic 76–107; PULSE 67–74; RESP 14–20; TEMP 36.7–36.8; O2SAT 96–98; BMI 36.8
--- NOTE | 2021-03-01 | PATH_ITS ---
[facility] Accession Number: [id number] . 01 Material submitted: . colon - TRANSVERSE COLON POLYP . 02 Diagnosis: Transverse Colon Polyp: Tubular adenoma. MRV 03/06/2021 1039 Local . 02 Electronically signed: . Sandra Martinez MD, Pathologist NPI- [id number] . 01 Gross description: . TRANSVERSE COLON POLYP: Received in formalin is 1 fragment(s) of maldonado, soft tissue measuring 0.4 x 0.2 x 0.2 cm submitted entirely in 1 cassette(s) /STEPHANIE 03/02/2021 0652 Local . 02 Pathologist provided ICD-10: K63.5 . 02 CPT . 260293 Performed at: 01 [facility] [address] [id number] MD Xander Greenwood MD Phone: [phone] Performed at: 02 [facility] [address] [place], [place] [id number] MD Edith Angulo MD Phone: [phone]
[2021-03-01] MEDS: LACTATED RINGERS 1,000 ML 200 ML IV (14:29)
--- NOTE | 2021-03-01 15:29 | PM.PREOP ---
Pre-operative Note Interval Note History & Physical reviewed/Exam performed by Physician: Yes Changes to H&P: No
[2021-03-01] MEDS: LIDOCAINE 4% SOLN 50 ML 20 ML TOP (16:00)
--- NOTE | 2021-03-01 16:16 | P.OP.ENDO_ITS ---
Operative Date/Time/Diagnoses Date of procedure: 03/01/21 Time of procedure: 16:16 Pre-op diagnosis: Abdominal pain Post-op diagnosis: other (Gastritis, rectal polyp) Procedure & Clinicians Study performed: Esophagoduodenoscopy, colonoscopy Same procedure as scheduled: Yes Indications: Abdominal pain Surgeon: Johnathon Valenzuela Procedure Notes Procedure in detail: The history and physical was performed/updated and the patient is ASA class is 3. The procedure was discussed in detail with the patient. Potential risks complications including infection, bleeding, missed diagnosis, perforation, need for surgery, and were explained. Their que stions were answered and informed consent was obtained. Patient was brought to the procedure room and placed standard monitoring equipment. The patient's vital signs were monitored continuously throughout the entire procedure. Prior to starting time-out was performed. The patient was placed in the left lateral recumbent position. Procedural sedation was administered. Patient placed in left lateral decubitus position. Time out was performed. Procedural sedation was administered with Versed and Fentanyl. A bite block was placed. the scope was inserted into the mouth and advanced through the esophagus and into the stomach. The stomach was notable for mild gastitis, no ulcer or active hemorrhage. The pylorus was intubated and the duodenum was normal to the 2nd portion. The scope was retroflexed within the stomach and there was a small hiatal hernia. The scope was withdrawn into the esophagus the Z line was seen at 40 cm from the incisions. There was no Alcazar's esophagitis or masses or strictures. Stomach was desufflated and scope removed. Examination began with a thorough inspection of the perianal area there was no evidence of fissures, fistulae, external hemorrhoids or cutaneous malignancy. The colonoscopy scope was then placed into the anal canal and was advanced to the cecum, which was identified by the ileocecal valve, the appendiceal orifice and the confluence of the taenia. The scope was then slowly withdrawn examining colon thoroughly in all directions, irrigating it of any residual stool. FINDINGS 1. Gastritis 2. Rectal polyp 5 mm removed with biopsy forceps The patient tolerated the procedure well. They will be discharged once criteria are met. The prep was of good/excellent quality. The withdrawl time was 7 minutes. The sedation time was 30 minutes. Specimen(s): other (rectal polyp) Complications: none Impression: gastritis Post-procedure Plan for aftercare: stop celebrex start protonix Disposition: same day surgery
[2021-03-01] MEDS: MIDAZOLAM 5 MG/5 ML VIAL IV (16:18)
[2021-03-01] MEDS: fentaNYL 250 MCG/5 ML INJ IV (16:18)
== END 2021-03-01 16:55 | disposition home or self-care (01) ==
PROVIDERS: Family Provider Family Medicine; PCP Family Medicine; Referring Provider Surgery; Visit Provider Surgery
PROC: 0DJ08ZZ Inspection of Upper Intestinal Tract, Via Natural or Artificial Opening Endoscopic (ICD-10-PCS; CPT 43235; principal; 2021-03-01 15:15)
PROC: 0DJD8ZZ Inspection of Lower Intestinal Tract, Via Natural or Artificial Opening Endoscopic (ICD-10-PCS; CPT 45378; 2021-03-01 15:15)
DX: R10.9 Unspecified abdominal pain (principal); K58.9 Irritable bowel syndrome, unspecified; K29.70 Gastritis, unspecified, without bleeding; K62.1 Rectal polyp; D12.3 Benign neoplasm of transverse colon
CPT/HCPCS: 45380; 43235; 99152; 99153; J2250; J3010

== ENCOUNTER → 2021-08-31 10:43 | Outpatient (CLI) | payer MEDICARE, OTHER, SELFPAY ==
[2021-01-22 11:06] VITALS: BMI 35.1
--- NOTE | 2021-08-31 10:45 | DI.MRI.S_ITS ---
PROCEDURE: MR ABDOMEN WO/W CON INDICATIONS: pancreatic cyst, suspicious for IMPN TECHNIQUE: Coronal HASTE, axial 2D FLASH in- and [id number]; axial breath-hold T2 FSE with fat saturation from the hepatic dome to the iliac crests. Oblique coronal thin-slice and radial thick slab HASTE through the biliary system. Dynamic axial VIBE during administration of contrast. Post-contrast coronal VIBE or 2D FLASH with fat saturation from the hepatic dome to the iliac crests. Optional diffusion weighted imaging and ADC may be performed. COMPARISON: [facility], MR, MR ABDOMEN WO/W CON, 09/16/2019, 12:34. FINDINGS: Image quality: There is mild motion artifact and inhomogeneous fat saturation. Pancreas and biliary system: Within the body of the pancreas, there is a bilobed cystic lesion which appears slightly increased compared to the prior study, measuring approximately 1.0 x 0.4 x 1.0 cm in dimension compared to approximately 0.6 x 0.4 x 0.8 cm previously. The cystic lesion is demonstrated adjacent to the main pancreatic duct which is nondistended. Following contrast administration, no definite solid internal enhancement identified. Elsewhere, no discrete solid pancreatic mass identified. No peripancreatic edema or fluid collections. Solid organs: There are multiple small nonenhancing cysts throughout the liver. No suspicious hepatic mass. Spleen is normal in size and enhancement. No adrenal nodules. The kidneys demonstrate no hydronephrosis. There are small bilateral renal cysts. Nodes and vessels: No retroperitoneal or mesenteric adenopathy by size criteria. Aorta and inferior vena cava are normal in size. Bowel and peritoneum: Visualized bowel loops are normal in caliber throughout. No free fluid. Lung bases: No basal pleural effusions. Heart size is normal. Bones and soft tissues: No ventral hernias. Bone marrow is normal in overall signal. IMPRESSION: 1. Bilobed thin walled cyst within the body of the pancreas demonstrates slight increase in size compared to the prior study. 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 No other suspicious imaging features such as solid internal enhancement or main pancreatic duct dilatation. Recommend continued follow-up in 12 months if clinically indicated. Dictated by: Xander Lloyd M.D. on 08/31/2021 at 16:31 Approved by: Xander Lloyd M.D. on 08/31/2021 at 16:42
== END ==
PROVIDERS: Family Provider Family Medicine; PCP Family Medicine; Referring Provider Internal Medicine Hematology & Oncology; Visit Provider Internal Medicine Hematology & Oncology
DX: C50.911 Malignant neoplasm of unspecified site of right female breast (principal); K86.2 Cyst of pancreas; K76.89 Other specified diseases of liver; N28.1 Cyst of kidney, acquired
CPT/HCPCS: 74183; A9579

== ENCOUNTER → 2021-10-02 15:41 | Outpatient (CLI) | payer MEDICARE, OTHER, SELFPAY ==
[2021-01-22 11:06] VITALS: BMI 35.1
--- NOTE | 2021-10-02 15:42 | DI.MG.S_ITS ---
UNILATERAL LEFT DIGITAL SCREENING MAMMOGRAM 3D/2D WITH CAD POST MASTECTOMY: 10/02/2021 CLINICAL: Routine screening. Breast cancer. Family history of breast cancer. Comparison is made to exams dated: 08/16/2020 mammogram, 06/04/2019 mammogram, and 06/24/2017 mammogram - [facility]. There are scattered fibroglandular elements in left breast. Current study was also evaluated with a Computer Aided Detection (CAD) system. There are benign vascular calcifications in the left breast. There also are benign post operative findings in the left breast. There are mole markers on the left breast. No significant masses, calcifications, or other findings are seen in the breast. There has been no significant interval change. IMPRESSION: BENIGN There is no mammographic evidence of malignancy. A 1 year screening mammogram is recommended. This exam was interpreted at Station ID: [id number]. NOTE: For mammograms, a report in lay terms will be sent to the patient. Approximately 15% of breast malignancies will not be visualized mammographically. In the management of a palpable breast mass, a negative mammogram must not discourage biopsy of a clinically suspicious lesion. Electronically Signed By: Hang sheldon/jaya:10/03/2021 09:05:03 copy to: Ham Gasca letter sent: Normal Exam ACR BI-RADS Category 2: Benign Finding(s) 3342F
== END ==
PROVIDERS: Family Provider Family Medicine; PCP Family Medicine; Referring Provider Internal Medicine Hematology & Oncology; Visit Provider Internal Medicine Hematology & Oncology
DX: Z12.31 Encounter for screening mammogram for malignant neoplasm of breast (principal); Z80.3 Family history of malignant neoplasm of breast; Z85.3 Personal history of malignant neoplasm of breast
CPT/HCPCS: 77063; 77067

== ENCOUNTER → 2021-11-05 14:11 | Outpatient (CLI) | payer MEDICARE, OTHER, SELFPAY ==
[2021-01-22 11:06] VITALS: BMI 35.1
== END ==
PROVIDERS: Family Provider Family Medicine; PCP Family Medicine; Visit Provider Urology
DX: R30.0 Dysuria (principal)
CPT/HCPCS: 87077; 87086; 87186

== ENCOUNTER → 2021-11-14 14:29 | Outpatient (CLI) | payer MEDICARE, OTHER, SELFPAY ==
[2021-11-05 15:15] VITALS: BMI 35.1
--- NOTE | 2021-11-14 14:32 | DI.CT.S_ITS ---
PROCEDURE: CT ABDOMEN PELVIS WO/W CON INDICATIONS: Recurring urinary tract infection TECHNIQUE: Optional 5 mm thick noncontrast images acquired from the diaphragm to the symphysis pubis. After the administration of intravenous contrast, 5 mm thick images acquired from the diaphragm to the symphysis pubis after a 10-minute delay. 2 mm thick coronal and sagittal reformats were then performed of the kidneys and ureters. For radiation dose reduction, the following was used: automated exposure control, adjustment of mA and/or kV according to patient size. COMPARISON: [facility], MR, MR ABDOMEN WO/W CON, 08/31/2021, 10:47. [facility], CT, CT ABDOMEN PELVIS WO/W CON, 03/18/2019, 14:12. FINDINGS: Image quality: Excellent. Lung bases: Lung bases are clear. Heart size is normal. Right mastectomy. Small hiatal hernia. Urinary system: Both kidneys are normal in size, without hydronephrosis. Nonobstructing right kidney stone measuring at 0.3 cm. Nonobstructing left kidney stone measuring approximately 0.4 cm. Right kidney inferior pole macroscopic fat containing of the lesion measuring 0.9 cm, (241), unchanged since 2019. 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 This is consistent with a benign angiomyolipoma. No perinephric fat stranding. There is normal bilateral renal enhancement. Renal calyces appear normal in morphology when filled with contrast. Opacified portions of both ureters demonstrate normal caliber. Bladder wall thickness is normal. No calcified bladder stones. Other solid organs: Liver is normal in size and enhancement. Small hepatic cysts. Gallbladder is unremarkable. Biliary system is non dilated. Pancreas enhances normally. Spleen is normal in size and enhancement. No adrenal nodules. Peritoneum and bowel: Bowel loops demonstrate normal wall thickness and caliber. Diverticulosis. Normal appendix. No free fluid or air. Nodes and vessels: No retroperitoneal or mesenteric adenopathy by size criteria. Aorta and inferior vena cava are normal in size. Moderate plaque. Abdominal wall: Tiny umbilical hernia. Pelvis: Small calcified uterine fibroid. No pathologic free pelvic fluid. No inguinal hernias or adenopathy. Right medial buttocks lesion with subdermal skin thickening, curvilinear vessels, and suspected intramuscular mass, (), this is more evident compared to CT from 2019. The subdermal skin thickening may be increased. This could represent a neoplasm. Bones: No suspicious bony lesions. No vertebral body compression fractures. Multilevel DDD. IMPRESSION: 1. Small nonobstructing kidney stones. No hydronephrosis. 2. No upper urinary tract filling defect. 3. 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 4. Diverticulosis. No free fluid. 5. Suspect right medial gluteal intramuscular mass with adjacent vascularity and sub dermal skin thickening. This lesion may be similar in size compared to 2019. Recommend clinical correlation. If indicated this could be further evaluated with ultrasound or MRI with IV contrast. 6. Right mastectomy. Dictated by: Hang Lebron M.D. on 11/14/2021 at 17:09 Approved by: Hang Lebron M.D. on 11/14/2021 at 17:28
== END ==
PROVIDERS: Family Provider Family Medicine; PCP Family Medicine; Referring Provider Internal Medicine; Visit Provider Urology
DX: N39.0 Urinary tract infection, site not specified (principal); N20.0 Calculus of kidney; K57.90 Diverticulosis of intestine, part unspecified, without perforation or abscess without bleeding; K44.9 Diaphragmatic hernia without obstruction or gangrene; Z90.11 Acquired absence of right breast and nipple
CPT/HCPCS: 74178; Q9967

== ENCOUNTER → 2022-01-31 15:19 | Outpatient (CLI) | payer MEDICARE, OTHER, SELFPAY ==
[2021-11-05 15:15] VITALS: BMI 35.1
== END ==
PROVIDERS: Family Provider Family Medicine; PCP Family Medicine; Visit Provider Urology
DX: N30.00 Acute cystitis without hematuria (principal); R30.0 Dysuria; Z87.440 Personal history of urinary (tract) infections
CPT/HCPCS: 81002; 87077; 87086; 87186; 99213

== ENCOUNTER → 2022-02-12 15:48 | Outpatient (CLI) | payer MEDICARE, OTHER, SELFPAY ==
[2021-11-05 15:15] VITALS: BMI 35.1
[2022-02-12 17:00] LABS: Add Manual Diff / Slide Review NO; Basophils Absolute Auto 100 /uL (0-100); Eosinophils Absolute Auto 100 /uL (0-450); Eosinophils Percent Auto 1.7 % (2-4); Hematocrit 38.2 % (36-46); Hemoglobin 12.8 g/dL (12.0-16.0); Lymphocytes Absolute Auto 1900 /uL (1100-4500); Lymphocytes Percent Auto 31.5 % (25-40); Mean Corpuscular HGB Conc 33.6 % (30-36); Mean Corpuscular Hemoglobin 31.5 PG (26-34); Mean Corpuscular Volume 93.6 fL (80-100); Monocytes Absolute Auto 600 /uL (0-900); Monocytes Percent Auto 9.3 % (3-14); Neutrophils Absolute Auto 3400 /uL (1500-7000); Neutrophils Percent Auto 56.5 % (50-75); Platelet Count 211 X10^3/uL (150-400); Red Blood Cell Count 4.08 X10^6/uL (4.0-5.2); Red Cell Distribution Width 14.6 % (11.6-14.8)
[2022-02-12 19:06] LABS: Alanine Aminotransferase 16 IU/L (<35); Albumin Globulin Ratio 1.2 (1.0-2.8); Alkaline Phosphatase 74 U/L (38-126); Aspartate Aminotransferase 24 IU/L (14-36); BUN Creatinine Ratio 15.7 (6-22); Bilirubin Total 0.7 mg/dL (0.2-1.3); Blood Urea Nitrogen 22 mg/dL (7-17); Carbon Dioxide 22 mmol/L (22-32); Chloride 102 mmol/L (98-107); Estimated Glomerular Filt Rate 38 mL/min (>60); Globulin 3.4 g/dL (1.7-4.1); Glucose 102 mg/dL (80-110); HEMOLYSIS < 15 (0-50); Lactate Dehydrogenase 340 U/L (313-618); Potassium 5.3 mmol/L (3.4-5.1); Sodium 134 mmol/L (137-145); Total Protein 7.4 g/dL (6.3-8.2)
[2022-02-13 15:26] LABS: Free Kappa Lt Chains, Serum 86.9 mg/L (3.3-19.4); Free Lambda Lt Chains,Serum 18.5 mg/L (5.7-26.3)
[2022-02-14 04:08] LABS: Beta-2-Microglobulin 3.4 mg/L (0.6-2.4)
== END ==
PROVIDERS: Family Provider Family Medicine; PCP Family Medicine; Referring Provider Internal Medicine Hematology & Oncology; Visit Provider Internal Medicine Hematology & Oncology
DX: D47.2 Monoclonal gammopathy (principal)
CPT/HCPCS: 80053; 82232; 83615; 83883; 85025

== ENCOUNTER → 2022-02-21 13:20 | Outpatient (CLI) | payer MEDICARE, OTHER, SELFPAY ==
[2021-11-05 15:15] VITALS: BMI 35.1
== END ==
PROVIDERS: Family Provider Family Medicine; PCP Family Medicine; Visit Provider Urology
DX: R30.0 Dysuria (principal)
CPT/HCPCS: 87077; 87086; 87186

== ENCOUNTER → 2022-10-11 12:45 | Outpatient (CLI) | payer MEDICARE, OTHER, SELFPAY ==
[2021-11-05 15:15] VITALS: BMI 35.1
--- NOTE | 2022-10-11 12:46 | DI.MG.S_ITS ---
UNILATERAL LEFT DIGITAL SCREENING MAMMOGRAM 3D/2D WITH CAD: 10/11/2022 CLINICAL: Routine screening. Personal history of right breast cancer. Family history of breast cancer. Comparison is made to exams dated: 10/02/2021 mammogram, 08/16/2020 mammogram, and 06/04/2019 mammogram - [facility]. There are scattered areas of fibroglandular density in the left breast (category b / 25%-50% glandular tissue). Current study was also evaluated with a Computer Aided Detection (CAD) system. There are benign vascular calcifications in the left breast. There also are benign post operative findings in the left breast. There are mole markers on the left breast. No significant masses, calcifications, or other findings are seen in the breast. There has been no significant interval change. IMPRESSION: BENIGN There is no mammographic evidence of malignancy. A 1 year screening mammogram is recommended. This exam was interpreted at Station ID: [id number]. NOTE: For mammograms, a report in lay terms will be sent to the patient. Approximately 15% of breast malignancies will not be visualized mammographically. In the management of a palpable breast mass, a negative mammogram must not discourage biopsy of a clinically suspicious lesion. Electronically Signed By: Lima denton/jaya:10/11/2022 14:19:35 copy to: Ham Gasca letter sent: Normal Exam ACR BI-RADS Category 2: Benign Finding(s) 3342F
== END ==
PROVIDERS: Family Provider Family Medicine; PCP Family Medicine; Referring Provider Family Medicine; Visit Provider Family Medicine
DX: Z12.31 Encounter for screening mammogram for malignant neoplasm of breast (principal); Z85.3 Personal history of malignant neoplasm of breast; Z80.3 Family history of malignant neoplasm of breast
CPT/HCPCS: 77063; 77067

== ENCOUNTER → 2022-10-22 12:03 | Outpatient (CLI) | payer MEDICARE, OTHER, SELFPAY ==
[2021-11-05 15:15] VITALS: BMI 35.1
--- NOTE | 2022-10-22 12:05 | DI.US.S_ITS ---
PROCEDURE: US EXTREMITY NONVASC LOWER LT INDICATIONS: LEFT UPPER THIGH LUMP TECHNIQUE: Real-time scanning was performed of the left anterior thigh , with image documentation. COMPARISON: None. FINDINGS: A 1.5 x 1.8 x 5.8 cm ill-defined mass isoechoic to the surrounding subcutaneous fat is present within the left anterior thigh in the area of interest. There is no increase in vascularity. 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 However, if there is rapid interval growth, the very rare liposarcoma could also be considered in the differential diagnosis. Please correlate clinically. Dictated by: Liam Worrell M.D. on 10/22/2022 at 14:13 Approved by: Lima Worrell M.D. on 10/22/2022 at 14:14
== END ==
PROVIDERS: Family Provider Family Medicine; PCP Family Medicine; Referring Provider Internal Medicine Hematology & Oncology; Visit Provider Internal Medicine Hematology & Oncology
DX: C50.911 Malignant neoplasm of unspecified site of right female breast (principal); R22.42 Localized swelling, mass and lump, left lower limb
CPT/HCPCS: 76882

== ENCOUNTER 2022-12-12 09:24 | Emergency (ER) | payer MEDICARE, OTHER, SELFPAY ==
[2021-11-05 15:15] VITALS: BMI 35.1
[2022-12-12] VITALS (17 sets, daily range): BP systolic 149–189; BP diastolic 69–117; PULSE 65–75; RESP 19–20; TEMP 36.5; O2SAT 92–99; BMI 35.2
--- NOTE | 2022-12-12 10:14 | PC.NURSE ---
pt states she has history of pancreatic stone.
[2022-12-12 10:54] LABS: Appearance Urine UA SL CLOUDY; Bilirubin Urine UA NEGATIVE (NEGATIVE); Color Urine UA YELLOW; Glucose Urine UA NEGATIVE (Negative); Ketones Urine UA NEGATIVE (NEGATIVE); Leukocyte Esterase Urine UA 2+ (NEGATIVE); Nitrite Urine UA POSITIVE (Negative); Occult Blood Urine UA TRACE-INTACT (Negative); Protein Urine UA 1+ (Negative); Urobilinogen Urine UA 0.2 E.U./dL (0.2)
--- NOTE | 2022-12-12 11:37 | DI.RAD.S_ITS ---
PROCEDURE: XR THORACIC SPINE 3V INDICATIONS: Pain TECHNIQUE: 3 views of the thoracic spine were acquired. COMPARISON: None. FINDINGS: Bones: No fractures or dislocations. No suspicious bony lesions. 12 pairs of ribs are noted, and appear intact where visualized. Multilevel, mild disc height loss. Soft tissues: No paravertebral stripe thickening. IMPRESSION: No acute, displaced fracture or traumatic subluxation. Mild, multilevel disc height loss. Dictated by: Theron Pack M.D. on 12/12/2022 at 12:13 Approved by: Theron Pack M.D. on 12/12/2022 at 12:13
--- NOTE | 2022-12-12 11:37 | ED.BACK ---
HPI - Back Pain/Injury General Chief Complaint: Back Pain/Injury Stated Complaint: sharp pain in upper back/left shoulder Time Seen by Provider: 12/12/22 11:28 Source: patient History of Present Illness HPI Narrative: Patient complains of upper back pain for the past 2 days. This started 2 days ago, Friday night. No known injury. Has point tenderness and pain at T4 level just to the right/lateral to midline. About 3 cm. Pain with right arm movement. It radiates to her neck as well as to her right arm. Denies any injury. Denies denies any chest pain or abdominal pain. No urinary complaints. However she states she does get UTIs frequently. She thinks she may have another UTI again. There is no flank pain. No fever chills. No rash on the back. Related Data Home Medications Medication Instructions Recorded Confirmed amlodipine 10 mg tablet 10 mg PO DAILY 12/02/17 10/21/22 atenolol 100 mg tablet 100 mg PO BID 12/02/17 10/21/22 lorazepam 0.5 mg tablet 1 mg PO QPM 01/09/18 10/21/22 hydrocodone 5 mg-acetaminophen 325 1 tab PRN PRN Pain (Scale Score 09/10/21 10/21/22 mg tablet 1-3) ascorbic acid (vitamin C) 500 mg 500 mg PO DAILY 10/08/21 10/21/22 tablet (Vitamin C) cholecalciferol (vitamin D3) 50 50 mcg PO DAILY 10/08/21 10/21/22 mcg (2,000 unit) capsule (Vitamin D3) vitamin K33-brwdzovvq factor 110 1 cap DAILY 10/08/21 10/21/22 mg-0.5 mg capsule zinc 50 mg capsule 50 mg PO DAILY 10/08/21 10/21/22 celecoxib 200 mg capsule (Celebrex) 200 mg PO DAILY 11/02/21 10/21/22 Allergies Allergy/AdvReac Type Severity Reaction Status Date / Time Penicillins [PENICILLINS] Allergy Intermediate HIVES Verified 12/12/22 09:35 REYNA Inhibitors AdvReac Intermediate Cough Verified 12/12/22 09:35 ciprofloxacin [CIPROFLOXACIN] AdvReac Intermediate LEG CRAMPS Verified 12/12/22 09:35 clindamycin [CLINDAMYCIN] AdvReac Intermediate DIARRHEA Verified 12/12/22 09:35 fesoterodine [From TOVIAZ] AdvReac Intermediate DRY EYE Verified 12/12/22 09:35 lisinopril [LISINOPRIL] AdvReac Intermediate COUGH Verified 12/12/22 09:35 morphine [MORPHINE] AdvReac Intermediate NAUSEA, Verified 12/12/22 09:35 VOMITING simvastatin [SIMVASTATIN] AdvReac Intermediate MUSCLE Verified 12/12/22 09:35 ACHES ezetimibe [From Zetia] AdvReac Unknown Verified 12/12/22 09:35 Review of Systems Review of Systems Narrative: GENERAL: negative chills, fatigue, malaise, fever, sweats. HEENT: negative sinus pain, ear pain, sore throat RESPIRATORY: negative dyspnea, cough CARDIOVASCULAR: negative chest pain, palpitations GASTROINTESTINAL: negative nausea, vomiting, abdominal pain : negative dysuria, frequency, hematuria MUSCULOSKELETAL: Positive back, muscle or bony pain SKIN: negative rash, skin lesions NEUROLOGIC: negative weakness, numbness ROS Unobtainable: All systems reviewed & are unremarkable except as noted in HPI and below Patient History Medical History Abnormal Pap smear of cervix Anxiety Arthritis Basal cell carcinoma Chronic pain of left knee Colonic thickening Constipation Diarrhea Endometrial polyp Frequent UTI GERD (gastroesophageal reflux disease) History of chemotherapy History of dysuria History of nocturia History of postmenopausal bleeding HTN (hypertension) Hyperlipidemia Impaired vision Neck pain Obese Peripheral neuropathy due to chemotherapy Port-a-cath in place Port-A-Cath in place Postmenopausal Postmenopausal bleeding Sinus drainage Urinary frequency Urinary incontinence Urinary urgency Weakness Weight loss Surgical History H/O mastectomy H/O removal of cyst History of breast biopsy History of cataract removal with insertion of prosthetic lens History of cryosurgery History of endometrial ablation History of knee replacement History of third molar tooth extraction History of tonsillectomy S/P cryotherapy of skin lesion S/P wrist surgery Status post epidural steroid injection Status post hysteroscopy (12/30/14) Status post hysteroscopy (12/05/17) Status post tonsillectomy and adenoidectomy Family History Mother Cancer Son Hodgkin disease Father Heart disease Social History marital status: number of children: 3 household members: children occupational status: previously employed Smoking Status: Never smoker alcohol intake: current substance use type: does not use Smoking Status: Never smoker alcohol intake frequency: a few times a month Substance Use Type: does not use Exam Narrative Exam Narrative: GENERAL: in no distress, not toxic not dyspneic HEAD: Normocephalic. EYES: Pupils equal round ENT: Mucous membranes moist. NECK: Trachea midline. CARDIOVASCULAR: Regular rate and rhythm without murmurs RESPIRATORY: Clear to auscultation. Breath sounds equal bilaterally. No wheezes, rales, or rhonchi. Speaking full sentences. No respiratory distress GASTROINTESTINAL: Abdomen soft, non-tender abdomen soft nontender no peritoneal signs no pain out of proportion to exam EXTREMITIES: No gross deformities. BACK: No flank tenderness. There is reproducible point tenderness just right of midline at T4 level about 3 cm lateral to midline. Increased pain with right arm movement raising hand above her head. Increased pain with leaning forward. No chest pain. No dyspnea. No rash NEURO: AOx4. SKIN: Warm and dry PSYCH: Not anxious, is cooperative Initial Vital Signs Initial Vital Signs: Vital Signs Temperature 97.7 F 12/12/22 09:30 Pulse Rate 71 12/12/22 09:30 Respiratory Rate 19 12/12/22 09:30 Blood Pressure 189/87 H 12/12/22 09:30 Pulse Oximetry 99 12/12/22 09:30 Oxygen Delivery Method Room Air 12/12/22 09:30 Course Orders Ordered: Discontinued Medications Baclofen (Baclofen 10 Mg Tablet) 20 mg PO NOW ONE Stop: 12/12/22 11:37 Last Admin: 12/12/22 11:43 Dose: 20 mg Documented By: [place] Fosfomycin Tromethamine (Fosfomycin 3 Gm Packet) 3 gm PO NOW ONE Stop: 12/12/22 11:48 Last Admin: 12/12/22 12:14 Dose: 3 gm Documented By: [place] Hydromorphone HCl (Hydromorphone 1 Mg Inj) 1 mg IV NOW ONE Stop: 12/12/22 14:36 Last Admin: 12/12/22 14:57 Dose: 1 mg Documented By: CLAUDETTE Ketorolac Tromethamine (Ketorolac 30 Mg/Ml Vial) 15 mg IM NOW ONE Stop: 12/12/22 11:36 Last Admin: 12/12/22 12:13 Dose: 15 mg Documented By: [place] Ondansetron HCl (Ondansetron 4 Mg/2 Ml Inj) 4 mg IV NOW ONE Stop: 12/12/22 14:36 Last Admin: 12/12/22 14:57 Dose: 4 mg Documented By: CLAUDETTE Vital Signs Vital signs: Vital Signs - 8 hr 12/12/22 09:30 12/12/22 09:31 12/12/22 09:32 Temperature 97.7 F Pulse Rate 71 72 Respiratory Rate 19 Blood Pressure 189/87 H Pulse Oximetry 99 98 98 Oxygen Delivery Method Room Air 12/12/22 09:32 12/12/22 11:28 12/12/22 11:29 Temperature Pulse Rate Respiratory Rate Blood Pressure 189/87 H 170/76 H Pulse Oximetry 97 Oxygen Delivery Method 12/12/22 11:29 12/12/22 11:30 12/12/22 11:30 Temperature Pulse Rate 70 67 Respiratory Rate Blood Pressure 168/78 H Pulse Oximetry 97 97 Oxygen Delivery Method 12/12/22 13:27 12/12/22 13:28 12/12/22 13:28 Temperature Pulse Rate 65 69 Respiratory Rate 20 Blood Pressure 159/71 H Pulse Oximetry 98 98 Oxygen Delivery Method 12/12/22 13:30 12/12/22 13:30 12/12/22 14:00 Temperature Pulse Rate 75 Respiratory Rate Blood Pressure 166/69 H 174/96 H Pulse Oximetry 96 Oxygen Delivery Method 12/12/22 14:00 12/12/22 14:55 12/12/22 14:56 Temperature Pulse Rate 71 66 Respiratory Rate Blood Pressure 160/117 H Pulse Oximetry 97 98 Oxygen Delivery Method 12/12/22 14:56 12/12/22 15:00 12/12/22 15:00 Temperature Pulse Rate 67 71 Respiratory Rate Blood Pressure 149/96 H Pulse Oximetry 98 96 Oxygen Delivery Method 12/12/22 15:30 12/12/22 15:30 12/12/22 16:00 Temperature Pulse Rate 66 74 Respiratory Rate Blood Pressure 171/81 H Pulse Oximetry 92 97 Oxygen Delivery Method MDM - Back Pain/Injury Lab Data Labs: Lab Results 12/12/22 Range/Units 10:49 Urine Color Yellow Urine Appearance Sl cloudy Urine pH 7.0 (4.5-8.0) Ur Specific [place] 1.010 (1.000-1.035) Urine Protein 1+ H (Negative) Urine Glucose (UA) Negative (Negative) g/dL Urine Ketones Negative (NEGATIVE) Urine Occult Blood Trace-intact (Negative) Urine Nitrate Positive H (Negative) Urine Bilirubin Negative (NEGATIVE) Urine Urobilinogen 0.2 (0.2) E.U./dL Ur Leukocyte Esterase 2+ H (NEGATIVE) Urine RBC 0-1/hpf (0-5/HPF) Urine WBC 10-30/hpf H (0-5/HPF) Ur Squamous Epith Cells 0-1 /hpf (0-5/HPF) Urine Bacteria Many (>30) H (None) Ur Culture Indicated? Specimen cultured Urine Dip Bedside Urine Glucose Negative Bedside Urine Bilirubin - Negative Bedside Urine Ketone - Negative Urine Specific [place] 1.010 Bedside Urine Occult Blood +/- Bedside Urine pH 7.0 Bedside Urine Protein + 30 Bedside Urine Urobilinogen - Negative Bedside Urine Nitrite + Positive Bedside Urine Leukocytes ++ 125 Esterase MDM Narrative Medical decision making narrative: Patient complains of upper back pain for the past 2 days. This started 2 days ago, Friday. No known injury. Has point tenderness and pain at T4 level just to the right/lateral to midline. About 3 cm. Pain with right arm movement. It radiates to her neck as well as to her right arm. Denies any injury. Denies denies any chest pain or abdominal pain. No urinary complaints. However she states she does get UTIs frequently. She thinks she may have another UTI again. There is no flank pain. No fever chills. No rash on the back. After history and exam x-ray thoracic spine, Toradol, baclofen, Dilaudid, Zofran MDM CC: Back pain Complicating co-morbidities: History of breast cancer Data collected from: Patient Medical records reviewed: No previous visits here for this complaint Differential considered: Includes but not limited to shingles/degenerative disc disease/muscle spasm Exam documented above, pertinent findings include: Point tenderness to T4 level Lab Test results independently reviewed as above. Pertinent findings: No laboratory studies/blood work indicated. Urinalysis does show UTI, positive nitrate. Positive leukocyte esterase. Many bacteria. Tenderness 30 WBC Imaging studies independently reviewed: X-ray thoracic spine mild degenerative disc disease Treatments: Toradol Zofran baclofen Dilaudid fosfomycin Re-evaluations: 5:04 p.m.. Patient feeling much better after Dilaudid. Reviewed with her before Dilaudid, baclofen and Toradol likely not effective because of her high tolerance with taking chronic hydrocodone. Her back pain likely pinched nerve causing muscle spasm as she has point tenderness. She is able to bring her right hand above her head much better without as much pain. Also with movement of her upper back decreased pain. She was given single treatment antibiotic for her UTI. Return precautions reviewed with her. She desires discharge home. Discussion: Appropriate for discharge home. No blood work or CT scan imaging indicated. She has point tenderness on her thoracic spine area. No neuro deficits. Return precautions reviewed with her. Antibiotic given here fosfomycin for her UTI. She has several allergies to antibiotics. This would be a good choice at this time. She desires discharge home Diagnosis: Acute UTI/thoracic back pain Discharge Plan Departure Patient Disposition: Home Clinical Impression: Acute right-sided thoracic back pain, Urinary tract infection Instructions: DI for Urinary Tract Infection (UTI), DI for Thoracic Back Pain Activity Restrictions/Additional Instructions: No driving operating machinery today. Please see family doctor in a week for re-evaluation. You may need MRI of your spine to evaluate for a disc problem. Your back pain today likely pinched nerve in your mid back causing muscle pain. You have been treated for your urinary tract infection with a single dose antibiotic. You may continue home medications. Return if worse for any questions or concerns. Prescriptions: No Action lorazepam 0.5 mg Tablet 1 mg PO QPM hydrocodone-acetaminophen 5-325 mg Tablet 1 tab PRN PRN (Reason: Pain (Scale Score 1-3)) ascorbic acid (vitamin C) [Vitamin C] 500 mg Tablet 500 mg PO DAILY vitamin E40-nbizdvxjo factor 110-0.5 mg Capsule 1 cap DAILY zinc 50 mg Capsule 50 mg PO DAILY cholecalciferol (vitamin D3) [Vitamin D3] 50 mcg (2,000 unit) Capsule 50 mcg PO DAILY atenolol 100 mg Tablet 100 mg PO BID amlodipine 10 mg Tablet 10 mg PO DAILY celecoxib [Celebrex] 200 mg capsule 200 mg PO DAILY Referrals: Ham Gasca MD [Primary Care Provider] - Stand Alone Forms: Patient Portal/API
[2022-12-12 11:39] LABS: RBC Urine 0-1/HPF (0-5/HPF); WBC Urine 10-30/HPF (0-5/HPF)
[2022-12-12 11:40] LABS: Bacteria Urine Many (>30); Culture Indicated Urine Specimen Cultured; Squamous Epithelial Cell Urine 0-1 /HPF (0-5/HPF)
[2022-12-12] MEDS: BACLOFEN 10 MG TABLET 20 MG PO (11:43)
[2022-12-12] MEDS: KETOROLAC 30 MG/ML VIAL 15 MG IM (12:13)
[2022-12-12] MEDS: FOSFOMYCIN 3 GM PACKET PO (12:14)
[2022-12-12] MEDS: ONDANSETRON 4 MG/2 ML INJ IV (14:57)
[2022-12-12] MEDS: HYDROMORPHONE 1 MG INJ IV (14:57)
== END 2022-12-12 17:10 | disposition home or self-care (01) ==
PROVIDERS: Emergency Provider Emergency Medicine; Family Provider Family Medicine; PCP Family Medicine
DX: M54.6 Pain in thoracic spine (principal); N39.0 Urinary tract infection, site not specified; Z79.899 Other long term (current) drug therapy
CPT/HCPCS: 72072; 81001; 81003; 87077; 87086; 87186; 96372; 96374; 96375; 99284; J1170; J1885; J2405

== ENCOUNTER → 2023-01-06 15:32 | Outpatient (CLI) | payer MEDICARE, OTHER, SELFPAY ==
[2021-11-05 15:15] VITALS: BMI 35.1
--- NOTE | 2023-01-06 | DI.RAD.S_ITS ---
PROCEDURE: XR WRIST LT MIN 3V INDICATIONS: M54.50 M25.542 TECHNIQUE: Four views of the wrist were acquired. COMPARISON: None. FINDINGS: Bones: Demineralization. No acute fractures. Intact fixation hardware in the distal radius. Decreased radiocarpal joint space. Mild juxta-articular erosive changes. MCP joints and CMC joints demonstrate joint space loss without significant spurring. Soft tissues: No suspicious soft tissue calcifications. IMPRESSION: 1. Demineralization. 2. 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 3. Intact fixation hardware stabilizing a prior distal radius fracture. Dictated by: Adela Christopher M.D. on 01/06/2023 at 18:21 Approved by: Adela Christopher M.D. on 01/06/2023 at 18:23
--- NOTE | 2023-01-06 | DI.RAD.S_ITS ---
PROCEDURE: XR SACRUM COCCYX MIN 2V INDICATIONS: M54.50 M25.542 TECHNIQUE: 3 views of the sacrum and coccyx acquired. COMPARISON: None. FINDINGS: Bones: No fractures or dislocations. No suspicious bony lesions. Mild degenerative sclerosis at both sacroiliac joints. Moderate medial joint space loss in both femoroacetabular joints partially imaged. Lateral view is suboptimal to visualize the coccyx. Soft tissues: Visualized bowel gas pattern is normal. No suspicious soft tissue densities. IMPRESSION: 1. Degenerative sclerotic changes in both sacroiliac joints. 2. Medial femoroacetabular joint space loss suggesting rheumatoid arthritis. Dictated by: Adela Christopher M.D. on 01/06/2023 at 18:19 Approved by: Adela Christopher M.D. on 01/06/2023 at 18:20
--- NOTE | 2023-01-06 | DI.RAD.S_ITS ---
PROCEDURE: XR LUMBAR SPINE 2-3V INDICATIONS: M54.50 M25.542 TECHNIQUE: 3 views of the lumbar spine were acquired. COMPARISON: [facility], , L-SPINE 2-3 VIEWS, 09/22/2015, 14:08. FINDINGS: Bones: 5 [id number] vertebrae are present. Mild rightward curvature of the lumbar spine with the apex at the L2 level. There is trace anterolisthesis L4 on five. Multilevel disc height loss. No vertebral body compression fractures. No suspicious bony lesions. Soft tissues: Overlying bowel gas pattern is normal. No suspicious soft tissue calcifications. Heavy abdominal aortic atherosclerotic calcification. IMPRESSION: 1. Slight progression in anterolisthesis L4-5 since the prior study, likely due to facet arthropathy. 2. Progression in multilevel disc degeneration since the prior study. Dictated by: Adela Christopher M.D. on 01/06/2023 at 18:12 Approved by: Adela Christopher M.D. on 01/06/2023 at 18:16
--- NOTE | 2023-01-06 | DI.RAD.S_ITS ---
PROCEDURE: XR HAND LT MIN 3V INDICATIONS: M54.50 M25.542 TECHNIQUE: 3 views of the hand(s) acquired. COMPARISON: None. FINDINGS: Bones: Decreased mineralization. Diffuse polyarticular joint space loss and remodeling, particularly at the IP joints. There is trace subcortical cystic changes at multiple joints and moderate marginal spurring. Findings are most pronounced at the PIP joints. There is a fixation plate in the distal radius. There are no acute fractures. Soft tissues: No suspicious soft tissue calcifications. IMPRESSION: 1. Moderate diffuse arthritic changes and osteopenia. Dictated by: Adela Christopher M.D. on 01/06/2023 at 18:16 Approved by: Adela Christopher M.D. on 01/06/2023 at 18:19
== END ==
PROVIDERS: Family Provider Family Medicine; PCP Family Medicine; Referring Provider Family Medicine; Visit Provider Family Medicine
DX: M43.16 Spondylolisthesis, lumbar region (principal); M51.36 Other intervertebral disc degeneration, lumbar region; M47.818 Spondylosis without myelopathy or radiculopathy, sacral and sacrococcygeal region; I70.0 Atherosclerosis of aorta; M85.842 Other specified disorders of bone density and structure, left hand; M25.542 Pain in joints of left hand; M54.50 Low back pain, unspecified; Z87.81 Personal history of (healed) traumatic fracture
CPT/HCPCS: 72100; 72220; 73110; 73130

== ENCOUNTER → 2023-02-28 15:06 | Outpatient (CLI) | payer MEDICARE, OTHER, SELFPAY ==
[2021-11-05 15:15] VITALS: BMI 35.1
== END ==
PROVIDERS: Family Provider Family Medicine; PCP Family Medicine; Visit Provider Urology
DX: N39.0 Urinary tract infection, site not specified (principal)
CPT/HCPCS: 87077; 87086; 87186

== ENCOUNTER → 2023-06-23 13:08 | Outpatient (CLI) | payer MEDICARE, OTHER, SELFPAY ==
[2021-11-05 15:15] VITALS: BMI 35.1
--- NOTE | 2023-06-23 | DI.MRI.S_ITS ---
PROCEDURE: MR THORACIC SPINE WO CON INDICATIONS: STRAIN OF LUMBAR REGION/THORACIC SPINE PAIN TECHNIQUE: Noncontrast sagittal T1 spine echo and T2 fast spin echo, sagittal STIR, and T2 fast spin echo through the thoracic spine. COMPARISON: [facility], , MR LUMBAR SPINE WO CON, 06/23/2023, 13:38. FINDINGS: Image quality: Diagnostic, with note made of motion artifact. Alignment and Curvature: Accentuated thoracic kyphosis is seen. No focal AP alignment abnormality is seen. Bone Marrow: The bone marrow is diffusely heterogeneous, yet without focally suspicious bone marrow lesions. No abnormal STIR signal is seen to suggest recent fracture or suspicious bone marrow lesion. Spinal Cord: Visualized spinal cord is normal in size and signal. Paraspinous Soft Tissues: No paravertebral masses. Miscellaneous: Generalized degenerative changes are seen, scattered levels disc space narrowing with endplate irregularity. A few levels of mild neural foraminal narrowing can be seen within the midthoracic spine. No level of significant central canal narrowing can be seen. IMPRESSION: No suspicious bone marrow lesions are seen. Age-appropriate bony degenerative changes are seen. Dictated by: Galo Lee M.D. on 06/23/2023 at 15:27 Approved by: Galo Lee M.D. on 06/23/2023 at 15:29
--- NOTE | 2023-06-23 | DI.MRI.S_ITS ---
PROCEDURE: MR LUMBAR SPINE WO CON INDICATIONS: STRAIN OF LUMBAR REGION/THORACIC SPINE PAIN TECHNIQUE: Noncontrast sagittal T1 spin echo and T2 fast echo, sagittal STIR, and T2 fast spin echo through the lumbar spine. In cases with scoliosis, additional coronal T2 fast spin echo may be performed. COMPARISON: [facility], MR, MR THORACIC SPINE WO CON, 06/23/2023, 13:38. [facility], MR, L-SPINE WITHOUT CONTRAST, 03/26/2016, 14:03. [facility], CR, XR LUMBAR SPINE 2-3V, 01/06/2023, 15:40. FINDINGS: Image quality: Excellent. Alignment and Curvature: Mild dextroconvex scoliotic curvature is seen. Bone Marrow: Marrow is of normal overall signal. No acute vertebral body compression fractures. Spinal Cord: Conus medullaris terminates at the L1 level. Visualized cord demonstrates normal signal and size. Paraspinous Soft Tissues: No paravertebral masses. T12-L1: Normal appearance. L1-L2: Mild loss of disc height is seen. Loss of disc signal is seen. Mild generalized disc bulge is seen. There is a superimposed central disc protrusion. Mild facet joint hypertrophy is seen. There is [id number] right-sided and no left-sided neural foraminal narrowing. Minimal to mild central canal narrowing is seen. There is minimal progression of degenerative change compared to 2016. L2-L3: Moderate loss of disc height is seen. Loss of disc signal is seen. At least moderate disc bulge is seen, which is slightly eccentric to the left. There is a left foraminal disc extrusion, as on series 8, image 14 and on series 5 images 11 and 12. Mild facet joint hypertrophy is seen. There is at least moderate left-sided and moderate right-sided neural foraminal narrowing. Moderate central canal narrowing is seen. These imaging findings have progressed compared to the prior study. L3-L4: The disc height is well-preserved. Loss of disc signal is seen at this level. Moderate generalized disc bulge is seen. Mild to moderate facet hypertrophy is seen. Associated hypertrophy of the ligamentum flavum can be seen. Moderate bilateral neural foraminal narrowing is seen. Moderate central canal narrowing is seen. When comparison is made with the prior images, these findings are similar. L4-L5: The disc height is well-preserved. Loss of disc signal is seen at this level. Mild to moderate disc bulge is seen, which is slightly eccentric to the left. There is a central disc protrusion. At least moderate facet hypertrophy is seen. There is [id number] right-sided and at least moderate left-sided neural foraminal narrowing. Mac VIII central there is slight progression of degenerative change compared to the prior. L5-S1: At least moderate loss of disc height and disc signal can be seen. Reactive marrow endplate changes are seen on the right, which are hyperintense on T1-weighted and T2-weighted imaging and most consistent with fatty metaplasia (Modic type II changes). Mild to moderate disc bulge is seen. Mild to moderate facet hypertrophy can be seen. There is moderate left-sided and no significant right-sided neural foraminal narrowing. No central canal narrowing is seen. When comparison is made with the prior images, these findings are similar. IMPRESSION: Multiple levels of lumbar spine degenerative change can be seen, which are progressed at several levels compared to 2016, most notably at the L2-L3 level. Dictated by: Galo Lee M.D. on 06/23/2023 at 15:18 Approved by: Galo Lee M.D. on 06/23/2023 at 15:26
== END ==
PROVIDERS: Family Provider Family Medicine; PCP Family Medicine; Referring Provider Physician Assistant Surgical; Visit Provider Physician Assistant Surgical
DX: S39.012A Strain of muscle, fascia and tendon of lower back, initial encounter (principal); M47.816 Spondylosis without myelopathy or radiculopathy, lumbar region; M47.817 Spondylosis without myelopathy or radiculopathy, lumbosacral region; M47.814 Spondylosis without myelopathy or radiculopathy, thoracic region; M54.6 Pain in thoracic spine
CPT/HCPCS: 72146; 72148

== ENCOUNTER → 2023-08-05 14:30 | Outpatient (CLI) | payer MEDICARE, OTHER, SELFPAY ==
[2021-11-05 15:15] VITALS: BMI 35.1
--- NOTE | 2023-08-05 | DI.RAD.S_ITS ---
PROCEDURE: XR CHEST 2V INDICATIONS: CHEST COUGH TECHNIQUE: 2 views of the chest were acquired. COMPARISON: [facility], , CHEST 1 VIEW, 09/03/2017, 14:57. FINDINGS: Surgical changes and devices: Surgical clips are seen projecting over the right chest. Lungs and pleura: Lungs are clear. No pleural effusions or pneumothorax. Mediastinum: Mediastinal contours are normal. Heart size is normal. Bones and chest wall: No suspicious bony abnormalities. Soft tissues appear unremarkable. IMPRESSION: No acute cardiopulmonary abnormality is seen. Approved by: Gregg Doherty M.D. on 08/05/2023 at 21:37
== END ==
PROVIDERS: Family Provider Family Medicine; PCP Family Medicine; Referring Provider Family Medicine; Visit Provider Family Medicine
DX: J20.9 Acute bronchitis, unspecified (principal)
CPT/HCPCS: 71046

== ENCOUNTER → 2023-08-14 11:45 | Outpatient (CLI) | payer MEDICARE, OTHER, SELFPAY ==
[2021-11-05 15:15] VITALS: BMI 35.1
[2023-08-14 12:06] LABS: Appearance Urine UA CLEAR; Bilirubin Urine UA NEGATIVE (NEGATIVE); Color Urine UA YELLOW; Glucose Urine UA NEGATIVE (Negative); Ketones Urine UA NEGATIVE (NEGATIVE); Leukocyte Esterase Urine UA TRACE (NEGATIVE); Nitrite Urine UA NEGATIVE (Negative); Occult Blood Urine UA NEGATIVE (Negative); Protein Urine UA NEGATIVE (Negative); Urobilinogen Urine UA 0.2 E.U./dL (0.2)
[2023-08-14 12:09] LABS: pH Urine UA 7.5 (4.5-8.0)
[2023-08-14 12:12] LABS: Bacteria Urine Many (>30); Culture Indicated Urine Specimen Cultured; RBC Urine None Seen (0-5/HPF); Squamous Epithelial Cell Urine None Seen (0-5/HPF); WBC Urine 0-1/HPF (0-5/HPF)
== END ==
LOC: LAB 11:47
PROVIDERS: Family Provider Family Medicine; PCP Family Medicine; Referring Provider Urology; Visit Provider Urology
DX: N39.0 Urinary tract infection, site not specified (principal)
CPT/HCPCS: 81001; 87077; 87086; 87186

== ENCOUNTER → 2023-09-01 14:09 | Outpatient (CLI) | payer MEDICARE, OTHER, SELFPAY ==
[2021-11-05 15:15] VITALS: BMI 35.1
== END ==
LOC: LAB 14:10
PROVIDERS: Family Provider Family Medicine; PCP Family Medicine; Referring Provider Urology; Visit Provider Urology
DX: N39.0 Urinary tract infection, site not specified (principal)
CPT/HCPCS: 87077; 87086; 87186

== ENCOUNTER → 2023-09-08 14:09 | Outpatient (CLI) | payer MEDICARE, OTHER, SELFPAY ==
[2021-11-05 15:15] VITALS: BMI 35.1
== END ==
PROVIDERS: Family Provider Family Medicine; PCP Family Medicine; Referring Provider Urology; Visit Provider Urology
DX: N39.0 Urinary tract infection, site not specified (principal)
CPT/HCPCS: 87045

== ENCOUNTER → 2023-09-25 13:19 | Outpatient (CLI) | payer MEDICARE, OTHER, SELFPAY ==
[2021-11-05 15:15] VITALS: BMI 35.1
[2023-09-25 15:01] LABS: Appearance Urine UA CLEAR; Bilirubin Urine UA NEGATIVE (NEGATIVE); Color Urine UA YELLOW; Glucose Urine UA NEGATIVE (Negative); Ketones Urine UA NEGATIVE (NEGATIVE); Leukocyte Esterase Urine UA 1+ (NEGATIVE); Nitrite Urine UA NEGATIVE (Negative); Occult Blood Urine UA TRACE-INTACT (Negative); Protein Urine UA 1+ (Negative); Specific Gravity Urine UA 1.015 (1.000-1.035); Urobilinogen Urine UA 0.2 E.U./dL (0.2)
[2023-09-25 15:53] LABS: pH Urine UA 5.5 (4.5-8.0)
[2023-09-25 15:54] LABS: Bacteria Urine Few (2-10); Culture Indicated Urine Cult Not Indicated; RBC Urine 0-1/HPF (0-5/HPF); Squamous Epithelial Cell Urine 5-10 /HPF (0-5/HPF); Urine Volume 10mL (spun); WBC Urine 10-30/HPF (0-5/HPF)
== END ==
PROVIDERS: Family Provider Family Medicine; PCP Family Medicine; Referring Provider Urology; Visit Provider Urology
DX: R33.9 Retention of urine, unspecified (principal); N39.0 Urinary tract infection, site not specified
CPT/HCPCS: 81001

== ENCOUNTER 2023-12-24 15:24 | Emergency (ER) | payer MEDICARE, OTHER, SELFPAY ==
[2021-11-05 15:15] VITALS: BMI 35.1
[2023-12-24] VITALS (14 sets, daily range): BP systolic 141–168; BP diastolic 64–75; PULSE 75–84; RESP 16–24; TEMP 37.2; O2SAT 89–94; BMI 29.8
[2023-12-24 15:52] LABS: Add Manual Diff / Slide Review NO; Basophils Absolute Auto 0 /uL (0-100); Basophils Percent Auto 0.4 % (0-2); Eosinophils Absolute Auto 100 /uL (0-450); Eosinophils Percent Auto 0.6 % (2-4); Hematocrit 41.2 % (36-46); Hemoglobin 13.8 g/dL (12.0-16.0); Lymphocytes Absolute Auto 700 /uL (1100-4500); Mean Corpuscular HGB Conc 33.4 % (30-36); Mean Corpuscular Hemoglobin 30.8 PG (26-34); Mean Corpuscular Volume 92.1 fL (80-100); Monocytes Absolute Auto 800 /uL (0-900); Monocytes Percent Auto 6.1 % (3-14); Neutrophils Absolute Auto 11600 /uL (1500-7000); Neutrophils Percent Auto 87.9 % (50-75); Platelet Count 213 X10^3/uL (150-400); Red Blood Cell Count 4.47 X10^6/uL (4.0-5.2); White Blood Cell Count 13.2 X10^3/uL (4.5-11.0)
[2023-12-24 16:18] LABS: Alanine Aminotransferase 12 IU/L (<35); Albumin 4.1 g/dL (3.5-5.0); Albumin Globulin Ratio 1.1 (1.0-2.8); Alkaline Phosphatase 101 U/L (38-126); Aspartate Aminotransferase 22 IU/L (14-36); Bilirubin Total 1.1 mg/dL (0.2-1.3); Blood Urea Nitrogen 20 mg/dL (7-17); Calcium 9.2 mg/dL (8.4-10.2); Carbon Dioxide 23 mmol/L (22-32); Chloride 103 mmol/L (98-107); Creatine Kinase 32 U/L (30-135); Estimated Glomerular Filt Rate > 60 mL/min (>60); Globulin 3.7 g/dL (1.7-4.1); Glucose 136 mg/dL (80-110); HEMOLYSIS 23 (0-50); Sodium 135 mmol/L (137-145); Total Protein 7.8 g/dL (6.3-8.2)
[2023-12-24 16:19] LABS: Lactate (Lactic Acid) 1.4 mmol/L (0.7-2.1)
[2023-12-24 16:30] LABS: Troponin I < 0.012 ng/mL (0.01-0.034)
[2023-12-24 16:35] LABS: Procalcitonin 0.285 ng/mL (<0.5)
[2023-12-24 18:01] LABS: Bacteria Urine Many (>30); Culture Indicated Urine Specimen Cultured; RBC Urine 0-1/HPF (0-5/HPF); Squamous Epithelial Cell Urine 0-1 /HPF (0-5/HPF); Urine Volume 10mL (spun); WBC Urine 0-1/HPF (0-5/HPF)
[2023-12-24 19:54] LABS: Influenza A - CEPHEID Flu A NEGATIVE (NEGATIVE); Influenza B - CEPHEID Flu B NEGATIVE (NEGATIVE); Respiratory Syncytial Virus Negative (Negative)
[2023-12-24 20:09] LABS: COVID-19 CEPHEID 4-PLEX PCR Negative (Negative)
--- NOTE | 2023-12-24 20:25 | ED_ITS ---
HPI - General Adult General Chief complaint: Fever Stated complaint: Fever/Chills Time Seen by Provider: 12/24/23 18:54 Source: patient and EMS Mode of arrival: EMS History of Present Illness HPI narrative: 83-year-old female who is here for evaluation fevers and chills. She was also having a cough. Also having joint discomfort. Fever earlier today. She did take some aspirin earlier today. Despite the triage note the patient states she has not currently on any antibiotics. She has taken antibiotics in the past because of urinary tract infections. She has not having any urinary symptoms now but she states she really does have symptoms when she has infections. No change in bowel habits. Is having some shortness of breath. No chest pain. Related Data Home Medications Medication Instructions Recorded Confirmed amlodipine 10 mg tablet 10 mg PO DAILY 12/02/17 12/02/23 atenolol 100 mg tablet 100 mg PO BID 12/02/17 12/02/23 lorazepam 0.5 mg tablet 1 mg PO QPM 01/09/18 12/02/23 hydrocodone 5 mg-acetaminophen 325 1 tab PRN PRN Pain (Scale Score 09/10/21 12/02/23 mg tablet 1-3) ascorbic acid (vitamin C) 500 mg 500 mg PO DAILY 10/08/21 12/02/23 tablet (Vitamin C) cholecalciferol (vitamin D3) 50 50 mcg PO DAILY 10/08/21 12/02/23 mcg (2,000 unit) capsule (Vitamin D3) celecoxib 200 mg capsule (Celebrex) 200 mg PO DAILY 11/02/21 12/02/23 Previous Rx's Medication Instructions Recorded tadalafil 5 mg tablet (Cialis) 5 mg PO DAILY #30 tabs 12/02/23 nitrofurantoin 100 mg PO Q12H 5 days #10 caps 12/24/23 monohydrate/macrocrystals 100 mg capsule (Macrobid) Allergies Allergy/AdvReac Type Severity Reaction Status Date / Time Penicillins [PENICILLINS] Allergy Intermediate HIVES Verified 04/01/23 14:43 REYNA Inhibitors AdvReac Intermediate Cough Verified 04/01/23 14:43 ciprofloxacin [CIPROFLOXACIN] AdvReac Intermediate LEG CRAMPS Verified 04/01/23 14:43 clindamycin [CLINDAMYCIN] AdvReac Intermediate DIARRHEA Verified 04/01/23 14:43 fesoterodine [From TOVIAZ] AdvReac Intermediate DRY EYE Verified 04/01/23 14:43 lisinopril [LISINOPRIL] AdvReac Intermediate COUGH Verified 04/01/23 14:43 morphine [MORPHINE] AdvReac Intermediate NAUSEA, Verified 04/01/23 14:43 VOMITING simvastatin [SIMVASTATIN] AdvReac Intermediate MUSCLE Verified 04/01/23 14:43 ACHES ezetimibe [From Zetia] AdvReac Unknown Verified 04/01/23 14:43 Review of Systems Review of Systems ROS Unobtainable: All systems reviewed & are unremarkable except as noted in HPI and below Patient History Medical History Incomplete emptying of bladder History of nocturia History of dysuria Urinary incontinence Constipation Peripheral neuropathy due to chemotherapy Port-A-Cath in place History of postmenopausal bleeding Abnormal Pap smear of cervix Hyperlipidemia Postmenopausal Obese Impaired vision Anxiety Neck pain Chronic pain of left knee Frequent UTI Urinary urgency Urinary frequency Sinus drainage GERD (gastroesophageal reflux disease) Port-a-cath in place Weight loss Basal cell carcinoma Endometrial polyp Postmenopausal bleeding Weakness Colonic thickening Arthritis HTN (hypertension) History of chemotherapy Diarrhea Surgical History H/O mastectomy H/O removal of cyst S/P wrist surgery S/P cryotherapy of skin lesion History of endometrial ablation Status post hysteroscopy (12/05/17) Status post epidural steroid injection History of breast biopsy History of tonsillectomy History of cryosurgery History of knee replacement Status post hysteroscopy (12/30/14) History of cataract removal with insertion of prosthetic lens History of third molar tooth extraction Status post tonsillectomy and adenoidectomy Family History Mother Cancer Son Hodgkin disease Father Heart disease Social History marital status: number of children: 3 household members: children occupational status: previously employed Smoking Status: Never smoker alcohol intake: current substance use type: does not use Smoking Status: Never smoker alcohol intake frequency: a few times a month Substance Use Type: does not use Exam Initial Vital Signs Initial Vital Signs: Vital Signs Pulse Rate 75 12/24/23 15:33 Respiratory Rate 24 12/24/23 15:33 HENSD Head: normal to inspection and normocephalic Resp Effort & Inspection: normal respiratory effort Auscultation: clear to auscultation bilaterally Cardio Rate: regular rate Rhythm: regular rhythm GI Inspection: normal to inspection and non-distended Neuro General: patient alert, patient awake and moves all extremities Extrem General: normal to inspection and capillary refill normal Course Orders Ordered: ED Orders 12/24/23 17:27 Urine Culture Stat Urine Microscopic Stat 12/24/23 19:07 Covid-19 + FLU A/B + RSV - PCR Stat Discontinued Medications Nitrofurantoin Macrocrystals (Nitrofurantoin Er 100 Mg Capsule) 100 mg PO NOW ONE Stop: 12/24/23 20:26 Last Admin: 12/24/23 20:33 Dose: 100 mg Documented By: KARRI Vital Signs Vital signs: Vital Signs - 8 hr 12/24/23 18:00 12/24/23 18:00 12/24/23 18:30 Pulse Rate 75 75 Respiratory Rate 20 19 Blood Pressure 151/68 H Pulse Oximetry 89 L 92 12/24/23 18:30 12/24/23 19:00 12/24/23 19:00 Pulse Rate 76 Respiratory Rate 21 Blood Pressure 141/66 H 145/64 H Pulse Oximetry 93 12/24/23 19:30 12/24/23 19:30 12/24/23 20:00 Pulse Rate 77 80 Respiratory Rate 21 22 Blood Pressure 152/67 H Pulse Oximetry 93 93 12/24/23 20:00 12/24/23 20:30 Pulse Rate 78 Respiratory Rate 19 Blood Pressure 164/73 H Pulse Oximetry 93 Medical Decision Making Lab Data Lab results reviewed: Yes I reviewed the patient's lab results. 12/24/23 15:48 12/24/23 15:38 Labs: Lab Results 12/24/23 12/24/23 12/24/23 Range/Units 15:38 15:48 17:27 WBC 13.2 H (4.5-11.0) X10^3/uL RBC 4.47 (4.0-5.2) X10^6/uL Hgb 13.8 (12.0-16.0) g/dL Hct 41.2 (36-46) % MCV 92.1 (80-100) fL MCH 30.8 (26-34) PG MCHC 33.4 (30-36) % RDW 14.0 (11.6-14.8) % Plt Count 213 (150-400) X10^3/uL Neut % (Auto) 87.9 H (50-75) % Lymph % (Auto) 5.0 L (25-40) % [place] % (Auto) 6.1 (3-14) % Eos % (Auto) 0.6 L (2-4) % Baso % (Auto) 0.4 (0-2) % Neut # (Auto) 03568 H (8284-2194) /uL Lymph # (Auto) 700 L (0999-5962) /uL [place]rentiss # (Auto) 800 (0-900) /uL Eos # (Auto) 100 (0-450) /uL Baso # (Auto) 0 (0-100) /uL Sodium 135 L (137-145) mmol/L Potassium 4.0 (3.4-5.1) mmol/L Chloride 103 (98-107) mmol/L Carbon Dioxide 23 (22-32) mmol/L BUN 20 H (7-17) mg/dL Creatinine 0.77 (0.52-1.04) mg/dL Estimated GFR > 60 (>60) mL/min BUN/Creatinine Ratio 26.0 H (6-22) Glucose 136 H (80-110) mg/dL Lactate 1.4 (0.7-2.1) mmol/L Calcium 9.2 (8.4-10.2) mg/dL Total Bilirubin 1.1 (0.2-1.3) mg/dL AST 22 (14-36) IU/L ALT 12 (<35) IU/L Alkaline Phosphatase 101 (38-126) U/L Total Creatine Kinase 32 (30-135) U/L Troponin I < 0.012 (0.01-0.034) ng/mL Total Protein 7.8 (6.3-8.2) g/dL Albumin 4.1 (3.5-5.0) g/dL Globulin 3.7 (1.7-4.1) g/dL Albumin/Globulin Ratio 1.1 (1.0-2.8) Procalcitonin 0.285 (<0.5) ng/mL Urine RBC 0-1/hpf (0-5/HPF) Urine WBC 0-1/hpf (0-5/HPF) Ur Squamous Epith Cells 0-1 /hpf (0-5/HPF) Urine Bacteria Many (>30) H (None) Ur Culture Indicated? Specimen cultured Vol Urine Centrifuged 10ml (spun) SARS-CoV-2 (PCR) (Negative) Influenza A (RT-PCR) (NEGATIVE) Influenza B (RT-PCR) (NEGATIVE) RSV (PCR) (Negative) 12/24/23 Range/Units 19:07 WBC (4.5-11.0) X10^3/uL RBC (4.0-5.2) X10^6/uL Hgb (12.0-16.0) g/dL Hct (36-46) % MCV (80-100) fL MCH (26-34) PG MCHC (30-36) % RDW (11.6-14.8) % Plt Count (150-400) X10^3/uL Neut % (Auto) (50-75) % Lymph % (Auto) (25-40) % [place] % (Auto) (3-14) % Eos % (Auto) (2-4) % Baso % (Auto) (0-2) % Neut # (Auto) (3317-6354) /uL Lymph # (Auto) (7108-6819) /uL Prentiss # (Auto) (0-900) /uL Eos # (Auto) (0-450) /uL Baso # (Auto) (0-100) /uL Sodium (137-145) mmol/L Potassium (3.4-5.1) mmol/L Chloride (98-107) mmol/L Carbon Dioxide (22-32) mmol/L BUN (7-17) mg/dL Creatinine (0.52-1.04) mg/dL Estimated GFR (>60) mL/min BUN/Creatinine Ratio (6-22) Glucose (80-110) mg/dL Lactate (0.7-2.1) mmol/L Calcium (8.4-10.2) mg/dL Total Bilirubin (0.2-1.3) mg/dL AST (14-36) IU/L ALT (<35) IU/L Alkaline Phosphatase (38-126) U/L Total Creatine Kinase (30-135) U/L Troponin I (0.01-0.034) ng/mL Total Protein (6.3-8.2) g/dL Albumin (3.5-5.0) g/dL Globulin (1.7-4.1) g/dL Albumin/Globulin Ratio (1.0-2.8) Procalcitonin (<0.5) ng/mL Urine RBC (0-5/HPF) Urine WBC (0-5/HPF) Ur Squamous Epith Cells (0-5/HPF) Urine Bacteria (None) Ur Culture Indicated? Vol Urine Centrifuged SARS-CoV-2 (PCR) Negative (Negative) Influenza A (RT-PCR) Flu a negative (NEGATIVE) Influenza B (RT-PCR) Flu b negative (NEGATIVE) RSV (PCR) Negative (Negative) Urine Dip Bedside Urine Glucose Negative Bedside Urine Bilirubin - Negative Bedside Urine Ketone - Negative Urine Specific [place] 1.015 Bedside Urine Occult Blood +/- Bedside Urine pH 7.0 Bedside Urine Protein + 30 Bedside Urine Urobilinogen - Negative Bedside Urine Nitrite + Positive Bedside Urine Leukocytes - Negative Esterase Point of care testing: Urine Dip Bedside Urine Glucose Negative Bedside Urine Bilirubin - Negative Bedside Urine Ketone - Negative Urine Specific [place] 1.015 Bedside Urine Occult Blood +/- Bedside Urine pH 7.0 Bedside Urine Protein + 30 Bedside Urine Urobilinogen - Negative Bedside Urine Nitrite + Positive Bedside Urine Leukocytes - Negative Esterase MDM Narrative Medical decision making narrative: Patient does have a nitrite positive urine. Also has a leukocytosis. She was well-appearing overall. He has not currently on antibiotics. She states she has taken Macrobid in the past and that has helped her urinary tract infections. No other source of infection found on the exam of the workup so we will treat her as a urinary tract infection. She is tolerating oral intake. No indication for admission to the hospital currently. She was given return precautions and follow-up instructions. She expressed understanding and agreement. Discharge Plan Departure Patient Disposition: Home Clinical Impression: Urinary tract infection Instructions: DI for Urinary Tract Infection (UTI) Activity Restrictions/Additional Instructions: There is a urine culture pending and we will contact you if we need to change antibiotics based on this. You can take Tylenol for any fevers or body aches. Contact your primary doctor for a follow-up. Return to the emergency department for new or worsening symptoms. Prescriptions: New nitrofurantoin monohyd/m-cryst [Macrobid] 100 mg capsule 100 mg PO Q12H 5 Days Qty: 10 0RF Rx Instructions: must administer with a meal/food No Action lorazepam 0.5 mg Tablet 1 mg PO QPM hydrocodone-acetaminophen 5-325 mg Tablet 1 tab PRN PRN (Reason: Pain (Scale Score 1-3)) ascorbic acid (vitamin C) [Vitamin C] 500 mg Tablet 500 mg PO DAILY cholecalciferol (vitamin D3) [Vitamin D3] 50 mcg (2,000 unit) Capsule 50 mcg PO DAILY atenolol 100 mg Tablet 100 mg PO BID amlodipine 10 mg Tablet 10 mg PO DAILY tadalafil [Cialis] 5 mg tablet 5 mg PO DAILY Qty: 30 12RF celecoxib [Celebrex] 200 mg capsule 200 mg PO DAILY Referrals: Ham Gasca MD [Primary Care Provider] - Stand Alone Forms: Patient Portal/API
[2023-12-24] MEDS: NITROFURANTOIN ER 100 MG CAPSULE PO (20:33)
== END 2023-12-24 20:43 | disposition home or self-care (01) ==
PROVIDERS: Emergency Medicine; Emergency Provider Emergency Medicine; Family Provider Family Medicine; PCP Family Medicine
DX: N39.0 Urinary tract infection, site not specified (principal); R05.9 Cough, unspecified
CPT/HCPCS: 0241U; 36415; 80053; 81003; 81015; 82550; 83605; 84145; 84484; 85025; 87040; 87077; 87086; 99284

== ENCOUNTER → 2024-01-29 22:12 | Outpatient (ROUT) | payer MEDICARE, OTHER, SELFPAY ==
[2021-11-05 15:15] VITALS: BMI 35.1
== END ==
PROVIDERS: Family Provider Family Medicine; PCP Family Medicine; Visit Provider Internal Medicine
DX: R39.9 Unspecified symptoms and signs involving the genitourinary system (principal)
CPT/HCPCS: 87077; 87086; 87186

== ENCOUNTER → 2024-02-12 13:44 | Outpatient (ROUT) | payer MEDICARE, OTHER, SELFPAY ==
[2021-11-05 15:15] VITALS: BMI 35.1
[2024-02-12 14:05] LABS: Appearance Urine UA CLEAR; Bilirubin Urine UA NEGATIVE (NEGATIVE); Color Urine UA YELLOW; Glucose Urine UA NEGATIVE (Negative); Ketones Urine UA NEGATIVE (NEGATIVE); Leukocyte Esterase Urine UA NEGATIVE (NEGATIVE); Nitrite Urine UA NEGATIVE (Negative); Occult Blood Urine UA NEGATIVE (Negative); Protein Urine UA NEGATIVE (Negative); Urobilinogen Urine UA 0.2 E.U./dL (0.2)
[2024-02-12 14:08] LABS: pH Urine UA 5.5 (4.5-8.0)
== END ==
PROVIDERS: Family Provider Family Medicine; PCP Family Medicine; Visit Provider Urology
DX: N39.0 Urinary tract infection, site not specified (principal)
CPT/HCPCS: 81003

== ENCOUNTER → 2024-02-26 14:12 | Outpatient (CLI) | payer MEDICARE, OTHER, SELFPAY ==
[2021-11-05 15:15] VITALS: BMI 35.1
== END ==
PROVIDERS: Family Provider Family Medicine; PCP Family Medicine; Referring Provider Urology; Visit Provider Urology
DX: N39.0 Urinary tract infection, site not specified (principal); Z87.440 Personal history of urinary (tract) infections; Z96.659 Presence of unspecified artificial knee joint; Z85.3 Personal history of malignant neoplasm of breast; Z92.21 Personal history of antineoplastic chemotherapy
CPT/HCPCS: 81002; 87077; 87086; 87186; 99213

== ENCOUNTER → 2024-04-15 14:14 | Outpatient (CLI) | payer MEDICARE, OTHER, SELFPAY ==
[2021-11-05 15:15] VITALS: BMI 35.1
--- NOTE | 2024-04-15 14:17 | DI.RAD.S_ITS ---
PROCEDURE: XR HIP W PEL IF DONE LT 2V INDICATIONS: PAIN TECHNIQUE: << 2 views of the hip were acquired. COMPARISON: None. FINDINGS: Bones: There are no osseous abnormalities. SI and hip joints: Severe left and moderate right hip degeneration noted. Both SI joints are normal. Soft tissues: Cluster of 4 calcifications in the right true pelvis less than 5 mm appreciated. There almost certainly phleboliths. A 4 mm calcification superior to the right sacral off is likely benign but could potentially represent a ureteral stone IMPRESSION: Severe left and moderate right hip degeneration. Dictated by: Naeem Huffman M.D. on 04/16/2024 at 7:56 Approved by: Naeem Huffman M.D. on 04/16/2024 at 7:58
--- NOTE | 2024-04-15 14:17 | DI.RAD.S_ITS ---
PROCEDURE: XR KNEE LT 3V INDICATIONS: Pain TECHNIQUE: 3 views of the knee were acquired. COMPARISON: [facility], CR, XR KNEE LT 3V, 01/07/2018, 13:02. FINDINGS: Bones: There are no osseous abnormalities. Joints: Long stem knee total knee prosthesis is anatomically aligned without loosening. Small effusion noted. Soft tissues: Mild soft tissue swelling. IMPRESSION: Small effusion. Dictated by: Naeem Huffman M.D. on 04/16/2024 at 7:53 Approved by: Naeem Huffman M.D. on 04/16/2024 at 7:54
--- NOTE | 2024-04-15 14:17 | DI.RAD.S_ITS ---
PROCEDURE: XR CERVICAL SPINE 2V OR 3V INDICATIONS: PAIN TECHNIQUE: 4 view(s) of the cervical spine were acquired. COMPARISON: None. FINDINGS: Cervical spine curvature and alignment: Normal. Bones: There are no osseous abnormalities. Disc spaces: Mild C3-4 moderate C5-6 and mild C6-7 degenerative disc disease noted. Severe C3-4 C4-5 C5-6 and mild C6-7 degenerative facet disease also noted Soft tissues: No soft tissue swelling, calcification or mass. IMPRESSION: Degeneration. Dictated by: Naeem Huffman M.D. on 04/16/2024 at 7:59 Approved by: Naeem Huffman M.D. on 04/16/2024 at 8:01
== END ==
PROVIDERS: Family Provider Family Medicine; PCP Family Medicine; Referring Provider Family Medicine; Visit Provider Family Medicine
DX: M47.812 Spondylosis without myelopathy or radiculopathy, cervical region (principal); M16.0 Bilateral primary osteoarthritis of hip; M50.31 Other cervical disc degeneration, high cervical region; M25.552 Pain in left hip; M25.562 Pain in left knee; M79.89 Other specified soft tissue disorders; M25.462 Effusion, left knee; Z96.652 Presence of left artificial knee joint
CPT/HCPCS: 72040; 73502; 73562

== ENCOUNTER → 2024-08-11 13:38 | Outpatient (CLI) | payer MEDICARE, OTHER, SELFPAY ==
[2021-11-05 15:15] VITALS: BMI 35.1
--- NOTE | 2024-08-11 | DI.US.S_ITS ---
PROCEDURE: US EXTREMITY NONVASC LOWER LT INDICATIONS: LEFT ANTERIOR THIGH LUMP TECHNIQUE: Real-time scanning was performed of the left anterior thigh , with image documentation. COMPARISON: [facility], CR, XR HIP W PEL IF DONE LT 2V, 04/15/2024, 14:16. [facility], US, US EXTREMITY NONVASC LOWER LT, 10/22/2022, 12:36. [facility], CR, XR KNEE 1 OR 2 VIEWS LEFT, 05/20/2024, 12:38. FINDINGS: At the level of the left anterior thigh, there is a 2.1 x 1.4 x 6.0 cm isoechoic subcutaneous mass without any significant internal vascularity and faint hypoechoic borders. 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 Percutaneous sampling recommended for confirmation. Dictated by: Doug Braun M.D. on 08/13/2024 at 13:06 Approved by: Doug Braun M.D. on 08/13/2024 at 13:07
== END ==
PROVIDERS: Family Provider Family Medicine; PCP Family Medicine; Referring Provider Physician Assistant Surgical; Visit Provider Physician Assistant Surgical
DX: R22.42 Localized swelling, mass and lump, left lower limb (principal)
CPT/HCPCS: 76882

== ENCOUNTER → 2024-10-08 15:08 | Outpatient (CLI) | payer MEDICARE, OTHER, SELFPAY ==
[2021-11-05 15:15] VITALS: BMI 35.1
--- NOTE | 2024-10-08 15:09 | DI.MG.S_ITS ---
MM screening mammo unilat LT: 10/08/2024. BI-RADS: 0 CLINICAL: 83-year old female for left screening mammogram. No Tyrer-Cuzick risk score calculation due to the patient's personal history of breast cancer. 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 Status-post right mastectomy with chemotherapy. Current reported family history of breast cancer: mother, sister and maternal aunt's daughter. The patient had a prior left breast biopsy. PRIOR EXAMS 10/11/2022, 10/02/2021, 08/16/2020, 06/04/2019, 09/11/2017, 08/06/2017, 07/10/2017, 06/24/2017, 12/31/2016, 06/18/2016, 11/27/2015, 05/09/2015, 03/24/2015. MAMMOGRAPHY TECHNIQUE: 2D and 3D (tomosynthesis) digital mammographic views obtained, with additional images as needed for full coverage. Current study was also evaluated with a Computer Aided Detection (CAD) system. DENSITY Left: B. There are scattered areas of fibroglandular density. MAMMOGRAPHY FINDINGS Left: Upper at 12:00, Middle depth: There is a focal asymmetry present with associated possible architectural distortion. Additional imaging evaluation needed. IMPRESSION: Left (Asymmetry): Upper at 12:00, Middle depth * Incomplete - Needs additional imaging evaluation. RECOMMENDATIONS Left: Upper at 12:00, Middle depth * Further evaluation with diagnostic mammography and diagnostic ultrasound. OVERALL ASSESSMENT CATEGORY BI-RADS-0: Incomplete - Need Additional Imaging Evaluation. ELECTRONICALLY SIGNED: Kristel Perea M.D. on 10/11/2024 at 01:34:33 PM PT Interpreting Station ID: [id number]
[2024-10-08 16:21] LABS: Add Manual Diff / Slide Review NO; Basophils Absolute Auto 0 /uL (0-100); Basophils Percent Auto 0.5 % (0-2); Eosinophils Absolute Auto 100 /uL (0-450); Eosinophils Percent Auto 1.3 % (2-4); Hematocrit 43.3 % (36-46); Hemoglobin 14.5 g/dL (12.0-16.0); Lymphocytes Absolute Auto 1300 /uL (1100-4500); Lymphocytes Percent Auto 22.2 % (25-40); Mean Corpuscular HGB Conc 33.4 % (30-36); Mean Corpuscular Volume 92.8 fL (80-100); Monocytes Absolute Auto 600 /uL (0-900); Monocytes Percent Auto 9.2 % (3-14); Neutrophils Absolute Auto 4000 /uL (1500-7000); Neutrophils Percent Auto 66.8 % (50-75); Platelet Count 249 X10^3/uL (150-400); Red Blood Cell Count 4.67 X10^6/uL (4.0-5.2); Red Cell Distribution Width 13.2 % (11.6-14.8); White Blood Cell Count 6.1 X10^3/uL (4.5-11.0)
[2024-10-08 16:43] LABS: Hemoglobin A1C% w Est Avg Glu 5.3 % (4.0-6.0)
[2024-10-08 16:52] LABS: Vitamin D 25 Hydroxy (D3) 36.9 ng/mL (30.0-100.0)
[2024-10-08 17:03] LABS: Thyroid Stimulating Hormone 0.027 uIU/mL (0.47-4.68)
[2024-10-08 17:12] LABS: Alanine Aminotransferase 19 IU/L (<35); Albumin 4.1 g/dL (3.5-5.0); Albumin Globulin Ratio 1.1 (1.0-2.8); Alkaline Phosphatase 108 U/L (38-126); Aspartate Aminotransferase 27 IU/L (14-36); BUN Creatinine Ratio 18.6 (6-22); Bilirubin Total 0.7 mg/dL (0.2-1.3); Blood Urea Nitrogen 21 mg/dL (7-17); Calcium 10.1 mg/dL (8.4-10.2); Carbon Dioxide 24 mmol/L (22-32); Chloride 102 mmol/L (98-107); Cholesterol 215 mg/dL (140-199); Estimated Glomerular Filt Rate 48 mL/min (>60); Globulin 3.8 g/dL (1.7-4.1); Glucose 85 mg/dL (80-110); HDL Cholesterol 48 mg/dL (40-60); HEMOLYSIS < 15 (0-50); LDL Cholesterol Calculated 144 mg/dL (<100); Potassium 4.6 mmol/L (3.4-5.1); Sodium 138 mmol/L (137-145); Total Protein 7.9 g/dL (6.3-8.2); Triglycerides 113 mg/dL (35-150)
[2024-10-08 17:22] LABS: Vitamin B12 517 pg/mL (239-931)
== END ==
PROVIDERS: Family Provider Family Medicine; PCP Family Medicine; Referring Provider Family Medicine; Visit Provider Family Medicine
DX: R92.8 Other abnormal and inconclusive findings on diagnostic imaging of breast (principal); R73.9 Hyperglycemia, unspecified; E78.2 Mixed hyperlipidemia; Z12.31 Encounter for screening mammogram for malignant neoplasm of breast; Z13.220 Encounter for screening for lipoid disorders; Z13.228 Encounter for screening for other metabolic disorders; Z13.29 Encounter for screening for other suspected endocrine disorder; E55.9 Vitamin D deficiency, unspecified; E87.6 Hypokalemia; M14.86 Arthropathies in other specified diseases classified elsewhere, knee; D51.9 Vitamin B12 deficiency anemia, unspecified; I70.0 Atherosclerosis of aorta; Z85.3 Personal history of malignant neoplasm of breast; Z80.3 Family history of malignant neoplasm of breast
CPT/HCPCS: 36415; 77063; 77067; 80053; 80061; 82306; 82607; 83036; 84443; 85025

== ENCOUNTER → 2024-11-12 13:04 | Outpatient (CLI) | payer MEDICARE, OTHER, SELFPAY ==
[2021-11-05 15:15] VITALS: BMI 35.1
--- NOTE | 2024-11-12 13:07 | DI.MG.S_ITS ---
MM diagnostic mammo unilat LT, US breast LT limited: 11/12/2024 BI-RADS: 4C CLINICAL: 83-year old female for left diagnostic mammogram and left diagnostic breast ultrasound that is a recall from screening on 10/08/2024. No Tyrer-Cuzick risk score calculation due to the patient's personal history of breast cancer. 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 Status-post right mastectomy with chemotherapy. Current reported family history of breast cancer: mother, sister and maternal aunt's daughter. The patient had a prior left breast biopsy. PRIOR EXAMS Mammogram(s): 10/08/2024. 18 Other Exams on 10/11/2022, 10/02/2021, 08/16/2020, 06/04/2019, 09/11/2017, 08/06/2017, 07/10/2017, 06/24/2017, 12/31/2016, 06/18/2016, 11/27/2015, 05/09/2015, 03/24/2015. MAMMOGRAPHY TECHNIQUE: 2D and 3D (tomosynthesis) digital mammographic views obtained, with additional images as needed for full coverage. Current study was also evaluated with a Computer Aided Detection (CAD) system. ULTRASOUND TECHNIQUE Real-time robert scale and color doppler imaging of the area of clinical interest was performed with image documentation. Left Axilla. TARGETED Left Breast Ultrasound: Real-time ultrasound exam was performed focused to area of clinical and/or imaging concern. Left targeted breast ultrasound of the area of clinical interest and the axilla was performed with image documentation. DENSITY Left: B. There are scattered areas of fibroglandular density. TISSUE COMPOSITION Left: Axillary Tail: (a) Homogeneous fatty. MAMMOGRAPHY FINDINGS Left (finding-1): Upper Inner at 11:00, Middle depth. Previous report: Upper at 12:00: Correlating with findings on screening mammogram there is a focal asymmetry present. ULTRASOUND FINDINGS Left (finding-1): Upper Inner at 11:00, 7 cm from nipple, measuring 0.6 x 0.4 x 0.4 cm: Correlating with findings on mammogram there is a spiculated, hypoechoic mass showing posterior acoustic shadowing. Doppler shows no vascularity. Left: Upper at 12:00, 4 cm from nipple: There is a complicated cyst with low level echoes showing no posterior acoustic features. Doppler shows no vascularity. This finding is incidental. Left: Axillary Tail: No abnormal lymph nodes are seen in the axilla. No suspicious sonographic finding with typically benign findings noted. IMPRESSION: Left (Mass): Upper Inner at 11:00, 7 cm from nipple, measuring 0.6 x 0.4 x 0.4 cm * High Suspicion for Malignancy. RECOMMENDATIONS Left: Upper Inner at 11:00, 7 cm from nipple * Ultrasound-guided core biopsy for further evaluation. COMMENTS: The above findings and recommendations were discussed with the patient in person by Dr. Waters at the time of the exam. * Incidental note of partially occlusive thrombus in the right axillary vein. The patient was sent to the emergency department for further evaluation/treatment. This was discussed with Dr. Landis at 1520 hrs. OVERALL ASSESSMENT CATEGORY BI-RADS-4: Suspicious. ELECTRONICALLY SIGNED: Truman Waters M.D. on 11/12/2024 at 05:43:26 PM PT Interpreting Station ID: [id number]
== END ==
PROVIDERS: Family Provider Family Medicine; PCP Family Medicine; Referring Provider Family Medicine; Visit Provider Family Medicine
DX: R92.8 Other abnormal and inconclusive findings on diagnostic imaging of breast (principal); N63.22 Unspecified lump in the left breast, upper inner quadrant; N60.02 Solitary cyst of left breast; R92.322 Mammographic fibroglandular density, left breast; Z13.29 Encounter for screening for other suspected endocrine disorder; Z85.3 Personal history of malignant neoplasm of breast; Z80.3 Family history of malignant neoplasm of breast; Z90.11 Acquired absence of right breast and nipple
CPT/HCPCS: 76642; 77065; G0279

== ENCOUNTER 2024-11-12 15:31 | Emergency (ER) | payer MEDICARE, OTHER, SELFPAY ==
[2021-11-05 15:15] VITALS: BMI 35.1
[2024-11-12 15:35] VITALS: BP 184/77; PULSE 67; RESP 16; TEMP 36.8; O2SAT 97; BMI 30.4
--- NOTE | 2024-11-12 15:54 | DI.US.S_ITS ---
PROCEDURE: US PERIPH VENOUS UP EXTREM LT INDICATIONS: concern dvt TECHNIQUE: Real-time imaging, as well as color and pulse Doppler interrogation, was performed of the upper extremity deep veins from the inferior neck to the antecubital fossa. COMPARISON: [facility], CT, CT ANGIO CHEST PE PROTOCOL, 11/12/2024, 17:10. FINDINGS: The internal jugular vein, visualized portions of the subclavian vein, axillary, and brachial veins are free of intraluminal thrombus. Where physically possible, the veins are normally compressible. Color and pulse Doppler demonstrate normal intraluminal flow, with expected phasicity and pulsatility. Additional scanning of the cephalic and basilic veins of the superficial system demonstrates normal compressibility, without thrombus. There is focal fluid seen within the region of the proximal humerus, with internal debris IMPRESSION: No findings of upper extremity deep venous thrombosis can be seen. Focal fluid seen within the region of the left proximal humerus, which is likely related to a joint effusion. Dictated by: Galo Lee M.D. on 11/12/2024 at 17:17 Approved by: Galo Lee M.D. on 11/12/2024 at 17:18
--- NOTE | 2024-11-12 15:56 | ED.RECABL ---
HPI - Recheck/Abnormal Lab/Rx <Fallon Weiner PA-C - Last Filed: 11/12/24 19:10> General Chief Complaint: Recheck/Abnormal Lab/Rx Stated Complaint: sent by RAD for blood clot Time Seen by Provider: 11/12/24 16:11 History of Present Illness HPI narrative: Ms. Mullen is a very pleasant 83-year-old female with a past medical history of right-sided breast cancer treated with mastectomy in 2016, 2023 left knee replacement, hypertension, hyperlipidemia who presents to the emergency department after having an outpatient left breast US which revealed an axillary DVT. Today patient had an outpatient mammogram and left breast ultrasound, reports that she is being scheduled for left breast biopsy, however had an incidental finding of left axillary DVT so she was sent to the emergency department. She does report having some mild left arm pain/aching for the last 2-3 weeks, primarily at night. She denies history of blood clot or blood thinner use. She denies chest pain, shortness of breath, cough, fevers, chills, left breast pain, abdominal pain, nausea, vomiting, diarrhea, hematuria, melena, hematochezia, recent head trauma or falls, recent surgery. No trauma to the left arm, prolonged traveling. Denies any swelling or tenderness of the left arm. Related Data Home Medications Medication Instructions Recorded Confirmed amlodipine 10 mg tablet 10 mg PO DAILY 12/02/17 08/05/24 atenolol 100 mg tablet 100 mg PO BID 12/02/17 08/05/24 lorazepam 0.5 mg tablet 1 mg PO QPM 01/09/18 08/05/24 hydrocodone 5 mg-acetaminophen 325 1 tab PRN PRN Pain (Scale Score 09/10/21 08/05/24 mg tablet 1-3) ascorbic acid (vitamin C) 500 mg 500 mg PO DAILY 10/08/21 08/05/24 tablet (Vitamin C) cholecalciferol (vitamin D3) 50 50 mcg PO DAILY 10/08/21 08/05/24 mcg (2,000 unit) capsule (Vitamin D3) celecoxib 200 mg capsule (Celebrex) 200 mg PO DAILY 11/02/21 08/05/24 furosemide 20 mg tablet 20 mg PO Q OTHER DAY 08/05/24 08/05/24 Allergies Allergy/AdvReac Type Severity Reaction Status Date / Time Penicillins [PENICILLINS] Allergy Intermediate HIVES Verified 03/16/24 14:55 REYNA Inhibitors AdvReac Intermediate Cough Verified 03/16/24 14:55 ciprofloxacin [CIPROFLOXACIN] AdvReac Intermediate LEG CRAMPS Verified 03/16/24 14:55 clindamycin [CLINDAMYCIN] AdvReac Intermediate DIARRHEA Verified 03/16/24 14:55 fesoterodine [From TOVIAZ] AdvReac Intermediate DRY EYE Verified 03/16/24 14:55 lisinopril [LISINOPRIL] AdvReac Intermediate COUGH Verified 03/16/24 14:55 morphine [MORPHINE] AdvReac Intermediate NAUSEA, Verified 03/16/24 14:55 VOMITING simvastatin [SIMVASTATIN] AdvReac Intermediate MUSCLE Verified 03/16/24 14:55 ACHES ezetimibe [From Zetia] AdvReac Unknown Verified 03/16/24 14:55 Review of Systems <Fallon Weiner PA-C - Last Filed: 11/12/24 19:10> Review of Systems ROS Unobtainable: All systems reviewed & are unremarkable except as noted in HPI and below Patient History <Fallon Weiner PA-C - Last Filed: 11/12/24 19:10> Medical History Atrophic vaginitis Incomplete emptying of bladder History of nocturia History of dysuria Urinary incontinence Constipation Peripheral neuropathy due to chemotherapy Port-A-Cath in place History of postmenopausal bleeding Abnormal Pap smear of cervix Hyperlipidemia Postmenopausal Obese Impaired vision Anxiety Neck pain Chronic pain of left knee Frequent UTI Urinary urgency Urinary frequency Sinus drainage GERD (gastroesophageal reflux disease) Port-a-cath in place Weight loss Basal cell carcinoma Endometrial polyp Postmenopausal bleeding Weakness Colonic thickening Arthritis HTN (hypertension) History of chemotherapy Diarrhea Surgical History H/O mastectomy H/O removal of cyst S/P wrist surgery S/P cryotherapy of skin lesion History of endometrial ablation Status post hysteroscopy (12/05/17) Status post epidural steroid injection History of breast biopsy History of tonsillectomy History of cryosurgery History of knee replacement Status post hysteroscopy (12/30/14) History of cataract removal with insertion of prosthetic lens History of third molar tooth extraction Status post tonsillectomy and adenoidectomy Family History Mother Cancer Son Hodgkin disease Father Heart disease Social History marital status: number of children: 3 household members: children occupational status: previously employed alcohol intake: current substance use type: does not use alcohol intake frequency: a few times a month Exam <Fallon Weiner PA-C - Last Filed: 11/12/24 19:10> Narrative Exam Narrative: GENERAL: 83 year old patient appears stated age. Well-developed patient, in no acute distress. HEAD: Atraumatic. Normocephalic. EYES: Pupils equal and round. Extraocular motions intact. No scleral icterus. No injection or drainage. NECK: Trachea midline. Cervical ROM intact. CARDIOVASCULAR: Regular rate and rhythm. RESPIRATORY: ?Nonlabored respirations. ?Speaking in clear, full sentences. ?Clear to auscultation. Breath sounds equal bilaterally. No wheezes, rales, or rhonchi. ? EXTREMITIES: No tenderness to palpation of bilateral lower and upper extremities. No tenderness to palpation of left axilla, upper arm and lower arm. No obvious swelling of left arm. Strong radial pulse bilaterally. NEURO: AOx3. ?Clear speech. ?Moves all 4 extremities appropriately. SKIN: No rash or erythema of visible areas Initial Vital Signs Initial Vital Signs: Vital Signs Temperature 98.2 F 11/12/24 15:35 Pulse Rate 67 11/12/24 15:35 Respiratory Rate 16 11/12/24 15:35 Blood Pressure 184/77 H 11/12/24 15:35 Pulse Oximetry 97 11/12/24 15:35 Oxygen Delivery Method Room Air 11/12/24 15:35 <Katerina Landis DO - Last Filed: 11/13/24 08:40> Initial Vital Signs Initial Vital Signs: Vital Signs Temperature 98.2 F 11/12/24 15:35 Pulse Rate 67 11/12/24 15:35 Respiratory Rate 16 11/12/24 15:35 Blood Pressure 184/77 H 11/12/24 15:35 Pulse Oximetry 97 11/12/24 15:35 Oxygen Delivery Method Room Air 11/12/24 15:35 Course <Fallon Weiner PA-C - Last Filed: 11/12/24 19:10> Orders Ordered: Discontinued Medications Apixaban (Apixaban 5 Mg Tablet) 10 mg PO NOW ONE Stop: 11/12/24 16:10 Last Admin: 11/12/24 17:56 Dose: 10 mg Documented By: GREGORIO Consultations Consultation #1: Consulted radiologist Dr. Shae Waters, radiologist who looked at the patient's breast ultrasound earlier today and found left axillary DVT. He recommends formal left upper extremity venous ultrasound. Time: 16:25 Vital Signs Vital signs: Vital Signs - 8 hr 11/12/24 15:35 11/12/24 18:51 Temperature 98.2 F Pulse Rate 67 68 Respiratory Rate 16 17 Blood Pressure 184/77 H 171/75 H Pulse Oximetry 97 97 Oxygen Delivery Method Room Air Room Air <Katerina Landis DO - Last Filed: 11/13/24 08:40> Orders Ordered: Discontinued Medications Apixaban (Apixaban 5 Mg Tablet) 10 mg PO NOW ONE Stop: 11/12/24 16:10 Last Admin: 11/12/24 17:56 Dose: 10 mg Documented By: GREGORIO Vital Signs Vital signs: Vital Signs - 8 hr 11/12/24 15:35 11/12/24 18:51 Temperature 98.2 F Pulse Rate 67 68 Respiratory Rate 16 17 Blood Pressure 184/77 H 171/75 H Pulse Oximetry 97 97 Oxygen Delivery Method Room Air Room Air MDM - Recheck/Abnormal Lab/Rx <Fallon Weiner PA-C - Last Filed: 11/12/24 19:10> Medical Records Attestation: I reviewed the patient's medical records. Medical records narrative: Prior ED visits 12/28/2023, 12/12/2022. PCP visit with Dr. Ham Gasca 10/08/2024 with labs. 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 Lab Data 11/12/24 16:16 11/12/24 16:16 Labs: Lab Results 11/12/24 Range/Units 16:16 WBC 8.2 (4.5-11.0) X10^3/uL RBC 4.71 (4.0-5.2) X10^6/uL Hgb 14.6 (12.0-16.0) g/dL Hct 43.7 (36-46) % MCV 92.8 (80-100) fL MCH 30.9 (26-34) PG MCHC 33.3 (30-36) % RDW 14.4 (11.6-14.8) % Plt Count 266 (150-400) X10^3/uL Neut % (Auto) 69.0 (50-75) % Lymph % (Auto) 20.6 L (25-40) % [place] % (Auto) 7.8 (3-14) % Eos % (Auto) 1.9 L (2-4) % Baso % (Auto) 0.7 (0-2) % Neut # (Auto) 5700 (3862-3834) /uL Lymph # (Auto) 1700 (4998-0877) /uL [place] # (Auto) 600 (0-900) /uL Eos # (Auto) 200 (0-450) /uL Baso # (Auto) 100 (0-100) /uL Sodium 139 (137-145) mmol/L Potassium 3.7 (3.4-5.1) mmol/L Chloride 101 (98-107) mmol/L Carbon Dioxide 27 (22-32) mmol/L BUN 17 (7-17) mg/dL Creatinine 1.01 (0.52-1.04) mg/dL Estimated GFR 55 L (>60) mL/min BUN/Creatinine Ratio 16.8 (6-22) Glucose 109 (80-110) mg/dL Calcium 10.6 H (8.4-10.2) mg/dL Total Bilirubin 0.9 (0.2-1.3) mg/dL AST 25 (14-36) IU/L ALT 20 (<35) IU/L Alkaline Phosphatase 108 (38-126) U/L Total Creatine Kinase 31 (30-135) U/L Troponin I < 0.012 (0.01-0.034) ng/mL Total Protein 8.6 H (6.3-8.2) g/dL Albumin 4.4 (3.5-5.0) g/dL Globulin 4.2 H (1.7-4.1) g/dL Albumin/Globulin Ratio 1.0 (1.0-2.8) Imaging Data Chest x-ray: Radiologist's Impression: PROCEDURE: XR CHEST 1V INDICATIONS: chest pain TECHNIQUE: One view of the chest was acquired. COMPARISON: [facility], CR, XR CHEST 2 VIEWS, 01/18/2024, 17:23. FINDINGS: Surgical changes and devices: Surgical clips project over the right axilla. Lungs and pleura: Lungs are clear. No pleural effusions or pneumothorax. Mediastinum: Mediastinal contours appear normal. Heart size is borderline. Bones and chest wall: No suspicious bony lesions. Overlying soft tissues appear unremarkable. IMPRESSION: No acute cardiopulmonary abnormality is seen. CTA Chest: Radiologist's Impression: PROCEDURE: CT ANGIO CHEST PE PROTOCOL INDICATIONS: L axilla dvt concern PE TECHNIQUE: After the administration of intravenous contrast, 2 mm thick sections acquired from the pulmonary apices to the posterior costophrenic angles. 3-dimensional maximum intensity projection (MIP) coronal and sagittal reformats were then acquired through the thorax. For radiation dose reduction, the following was used: automated exposure control, adjustment of mA and/or kV according to patient size. COMPARISON: None. FINDINGS: Image quality: Diagnostic Lungs and pleura: Bibasilar atelectasis/scarring. No dense airspace disease. There are small cystic changes. No pleural effusions. There are small pulmonary nodules measuring up to 6-7 mm in the right lung (5/175). Mediastinum, heart, and esophagus: Air, likely iatrogenic seen in the main pulmonary artery. There is no acute embolism. Small hiatal hernia. Cardiomegaly. There are coronary calcifications. No pathologic lymph nodes by size criteria Chest wall and thyroid: Unremarkable. Right axillary and breast clips. Upper abdomen: No gross abnormality on these arterial phase images. Possible small liver cysts. Subcentimeter lesions however are too small to characterize. Bones: No aggressive appearing osseous abnormality. IMPRESSION: No acute pulmonary embolism. Bibasilar atelectasis and scarring in the lungs. No pleural effusion. Small pulmonary nodules are seen measuring up to 7 mm (reference image 5/175). Consider six-month follow-up. Other findings above. LUE Venous US: Radiologist's Impression: PROCEDURE: US PERIPH VENOUS UP EXTREM LT INDICATIONS: concern dvt TECHNIQUE: Real-time imaging, as well as color and pulse Doppler interrogation, was performed of the upper extremity deep veins from the inferior neck to the antecubital fossa. COMPARISON: [facility], CT, CT ANGIO CHEST PE PROTOCOL, 11/12/2024, 17:10. FINDINGS: The internal jugular vein, visualized portions of the subclavian vein, axillary, and brachial veins are free of intraluminal thrombus. Where physically possible, the veins are normally compressible. Color and pulse Doppler demonstrate normal intraluminal flow, with expected phasicity and pulsatility. Additional scanning of the cephalic and basilic veins of the superficial system demonstrates normal compressibility, without thrombus. There is focal fluid seen within the region of the proximal humerus, with internal debris IMPRESSION: No findings of upper extremity deep venous thrombosis can be seen. Focal fluid seen within the region of the left proximal humerus, which is likely related to a joint effusion. MDM Narrative Medical decision making narrative: 83-year-old female with a past medical history of right-sided breast cancer treated with mastectomy in 2016, 2023 left knee replacement, hypertension, hyperlipidemia who presents to the emergency department after having an outpatient left breast US which revealed an axillary DVT. Differential diagnosis includes but is not limited to axillary vein DVT, PE, malignancy, lymphadenopathy, etc. On exam patient is in no acute distress, nontoxic appearing, vital signs within normal limits except for elevated blood pressure of 184/77. Patient is here after being sent from an outpatient breast ultrasound revealing left axillary vein DVT. Discussed with outpatient radiologist Dr. Waters who is unable to give formal read but reports he does see signs concerning for an axillary vein clot, recommends proceeding with left upper extremity venous ultrasound. Discussed the case with ED attending Dr. Landis, we will proceed with chest pain order set and CTA to rule out PE given that the incidental clot is in a deep vein of the upper extremity. We will treat with 10 mg of Eliquis. Patient denies any history of bleeding disorders, active bleeding or recent fall/trauma. She is at high risk due to her age, somewhat decreased renal function, and possibility of active cancer however after shared decision-making with the patient she is agreeable to the initiation of anticoagulation. Risks of AC discussed. CTA chest reveals no acute pulmonary embolism. There is bibasilar atelectasis and scarring in the lungs. No pleural effusion. Small pulmonary nodules are seen measuring up to 7 mm. Results were printed with the patient and discussed with her. Ultrasound peripheral venous upper extremity left reveals no findings of upper extremity deep venous thrombosis can be seen. There is focal fluid seen within the region of the left proximal humerus, which is likely related to a joint effusion. Digital Marketing Project Manager discussed with me that this fluid collection is likely what was visualized on the breast ultrasound. This is great news that at this time there are no signs for DVT and she does not need to continue taking anticoagulation. ECG reveals normal sinus rhythm with a QTC of 416, rate of 67. Labs reveal normal WBC count 8.2, hemoglobin 14.6, platelets 266. BUN 17, creatinine 1.01, GFR 55 improved from prior. Calcium mildly elevated at 10.6. Negative troponin. Discussed with the patient that her left arm pain could be related to the shoulder effusion. Recommended Tylenol and Voltaren gel. Discussed the importance of prompt follow up with her PCP for further discussion of her mammogram and breast ultrasound which should be read early next week, stressed the importance scheduling a biopsy if needed, further monitoring of pulmonary nodules, very strict ED return precautions were discussed. Patient verbalized understanding of all information is agreeable with the plan. She is stable for discharge home with her family member. <Katerina Landis, DO - Last Filed: 11/13/24 08:40> Lab Data Labs: Lab Results 11/12/24 Range/Units 16:16 WBC 8.2 (4.5-11.0) X10^3/uL RBC 4.71 (4.0-5.2) X10^6/uL Hgb 14.6 (12.0-16.0) g/dL Hct 43.7 (36-46) % MCV 92.8 (80-100) fL MCH 30.9 (26-34) PG MCHC 33.3 (30-36) % RDW 14.4 (11.6-14.8) % Plt Count 266 (150-400) X10^3/uL Neut % (Auto) 69.0 (50-75) % Lymph % (Auto) 20.6 L (25-40) % [place] % (Auto) 7.8 (3-14) % Eos % (Auto) 1.9 L (2-4) % Baso % (Auto) 0.7 (0-2) % Neut # (Auto) 5700 (4677-9384) /uL Lymph # (Auto) 1700 (3024-5032) /uL [place] # (Auto) 600 (0-900) /uL Eos # (Auto) 200 (0-450) /uL Baso # (Auto) 100 (0-100) /uL Sodium 139 (137-145) mmol/L Potassium 3.7 (3.4-5.1) mmol/L Chloride 101 (98-107) mmol/L Carbon Dioxide 27 (22-32) mmol/L BUN 17 (7-17) mg/dL Creatinine 1.01 (0.52-1.04) mg/dL Estimated GFR 55 L (>60) mL/min BUN/Creatinine Ratio 16.8 (6-22) Glucose 109 (80-110) mg/dL Calcium 10.6 H (8.4-10.2) mg/dL Total Bilirubin 0.9 (0.2-1.3) mg/dL AST 25 (14-36) IU/L ALT 20 (<35) IU/L Alkaline Phosphatase 108 (38-126) U/L Total Creatine Kinase 31 (30-135) U/L Troponin I < 0.012 (0.01-0.034) ng/mL Total Protein 8.6 H (6.3-8.2) g/dL Albumin 4.4 (3.5-5.0) g/dL Globulin 4.2 H (1.7-4.1) g/dL Albumin/Globulin Ratio 1.0 (1.0-2.8) Discharge Plan Departure Patient Disposition: Home Clinical Impression: Arm pain, left, Effusion of joint of left shoulder, Atelectasis of both lungs, Pulmonary nodule Instructions: DI for Arm Pain Activity Restrictions/Additional Instructions: Dear Ms. Mullen, Thank you for coming to the emergency department. Today you were evaluated because there was concern for a possible left upper arm blood clot on your breast ultrasound. Thankfully today the ultrasound of your arm revealed that there is not a blood clot in your left arm, however there is a joint effusion in your left shoulder. We also performed a CT scan of your chest which revealed no blood clot the lungs. It did reveal some scarring in your lungs and some small pulmonary nodules which are important to have monitored by your primary doctor. Your lab work revealed slightly elevated calcium. Please increase hydration, use Tylenol and topical diclofenac or Voltaren gel for your left shoulder pain, and follow up with your primary care doctor as soon as possible for further management and discussion of your mammogram and breast ultrasound results in addition to scheduling breast biopsy if needed. Return to the emergency department if you develop any new or worsening symptoms, severe pain, chest pain, shortness of breath, fevers or any concerns. Please follow up with your primary care doctor within the next 2-3 days for ER follow-up. (If you do not have a PCP you can call [phone]. ?to schedule an appointment with an [facility] Primary Care Provider) IF YOU DEVELOP ANY NEW OR WORSENING SYMPTOMS, RETURN TO THE ER! Please read the attached instructions, they highlight more specific treatments and interventions for you at home. Thank you for letting me participate in your care, Fallon Weiner PA-C Prescriptions: No Action lorazepam 0.5 mg Tablet 1 mg PO QPM hydrocodone-acetaminophen 5-325 mg Tablet 1 tab PRN PRN (Reason: Pain (Scale Score 1-3)) ascorbic acid (vitamin C) [Vitamin C] 500 mg Tablet 500 mg PO DAILY cholecalciferol (vitamin D3) [Vitamin D3] 50 mcg (2,000 unit) Capsule 50 mcg PO DAILY atenolol 100 mg Tablet 100 mg PO BID amlodipine 10 mg Tablet 10 mg PO DAILY furosemide 20 mg tablet 20 mg PO Q OTHER DAY celecoxib [Celebrex] 200 mg capsule 200 mg PO DAILY Referrals: Ham Gasca MD [Primary Care Provider] - Stand Alone Forms: Patient Portal/API/Survey ED Sign-out <Katerina Landis DO - Last Filed: 11/13/24 08:40> Cosign ED Attending Cosignature Attestation: I initially took call from Radiology very concerned about upper extremity DVT and recurrence of breast cancer. I discussed plan and concern with Fallon GONZALEZ. Initially given Eliquis prophylactically while we got CT and ultrasound. Ultrasound is negative CT is negative still concern for recurrence of cancer we will need a breast biopsy which has been discussed with patient by Radiology. No need for ongoing anticoagulation. I never saw her evaluated patient myself, however I was involved in plan. I was available for consultation.
--- NOTE | 2024-11-12 16:04 | DI.RAD.S_ITS ---
PROCEDURE: XR CHEST 1V INDICATIONS: chest pain TECHNIQUE: One view of the chest was acquired. COMPARISON: [facility], CR, XR CHEST 2 VIEWS, 01/18/2024, 17:23. FINDINGS: Surgical changes and devices: Surgical clips project over the right axilla. Lungs and pleura: Lungs are clear. No pleural effusions or pneumothorax. Mediastinum: Mediastinal contours appear normal. Heart size is borderline. Bones and chest wall: No suspicious bony lesions. Overlying soft tissues appear unremarkable. IMPRESSION: No acute cardiopulmonary abnormality is seen. Approved by: Gregg Doherty M.D. on 11/12/2024 at 16:50
--- NOTE | 2024-11-12 16:04 | EKG_ITS ---
[address] [address] Test Date: 2024-11-12 Pat Name: Yodit Mullen Department: Room: Gender: Female Theatrical Variety Agent: ALBIN : [id number] Requested By: Order Number: [id number] Reading MD: Jermaine Maldonado Measurements Intervals [place] Rate: 67 P: 82 MD: 184 QRS: 12 QRSD: 88 T: 40 QT: 394 QTc: 416 Interpretive Statements Normal sinus rhythm Electronically Signed On 11-16-2024 20:09:20 PDT by Jermaine Maldonado
--- NOTE | 2024-11-12 16:07 | DI.CT.S_ITS ---
PROCEDURE: CT ANGIO CHEST PE PROTOCOL INDICATIONS: L axilla dvt concern PE TECHNIQUE: After the administration of intravenous contrast, 2 mm thick sections acquired from the pulmonary apices to the posterior costophrenic angles. 3-dimensional maximum intensity projection (MIP) coronal and sagittal reformats were then acquired through the thorax. For radiation dose reduction, the following was used: automated exposure control, adjustment of mA and/or kV according to patient size. COMPARISON: None. FINDINGS: Image quality: Diagnostic Lungs and pleura: Bibasilar atelectasis/scarring. No dense airspace disease. There are small cystic changes. No pleural effusions. There are small pulmonary nodules measuring up to 6-7 mm in the right lung (5/175). Mediastinum, heart, and esophagus: Air, likely iatrogenic seen in the main pulmonary artery. There is no acute embolism. Small hiatal hernia. Cardiomegaly. There are coronary calcifications. No pathologic lymph nodes by size criteria Chest wall and thyroid: Unremarkable. Right axillary and breast clips. Upper abdomen: No gross abnormality on these arterial phase images. Possible small liver cysts. Subcentimeter lesions however are too small to characterize. Bones: No aggressive appearing osseous abnormality. IMPRESSION: No acute pulmonary embolism. Bibasilar atelectasis and scarring in the lungs. No pleural effusion. Small pulmonary nodules are seen measuring up to 7 mm (reference image 5/175). Consider six-month follow-up. Other findings above. Dictated by: August Sheikh M.D. on 11/12/2024 at 17:29 Approved by: August Sheikh M.D. on 11/12/2024 at 17:32
[2024-11-12 16:23] LABS: Add Manual Diff / Slide Review NO; Basophils Absolute Auto 100 /uL (0-100); Basophils Percent Auto 0.7 % (0-2); Eosinophils Absolute Auto 200 /uL (0-450); Eosinophils Percent Auto 1.9 % (2-4); Hematocrit 43.7 % (36-46); Hemoglobin 14.6 g/dL (12.0-16.0); Lymphocytes Absolute Auto 1700 /uL (1100-4500); Lymphocytes Percent Auto 20.6 % (25-40); Mean Corpuscular HGB Conc 33.3 % (30-36); Mean Corpuscular Hemoglobin 30.9 PG (26-34); Mean Corpuscular Volume 92.8 fL (80-100); Monocytes Absolute Auto 600 /uL (0-900); Monocytes Percent Auto 7.8 % (3-14); Neutrophils Absolute Auto 5700 /uL (1500-7000); Platelet Count 266 X10^3/uL (150-400); Red Blood Cell Count 4.71 X10^6/uL (4.0-5.2); Red Cell Distribution Width 14.4 % (11.6-14.8); White Blood Cell Count 8.2 X10^3/uL (4.5-11.0)
[2024-11-12 16:34] LABS: Alanine Aminotransferase 20 IU/L (<35); Albumin 4.4 g/dL (3.5-5.0); Alkaline Phosphatase 108 U/L (38-126); Aspartate Aminotransferase 25 IU/L (14-36); BUN Creatinine Ratio 16.8 (6-22); Bilirubin Total 0.9 mg/dL (0.2-1.3); Blood Urea Nitrogen 17 mg/dL (7-17); Calcium 10.6 mg/dL (8.4-10.2); Carbon Dioxide 27 mmol/L (22-32); Chloride 101 mmol/L (98-107); Creatine Kinase 31 U/L (30-135); Estimated Glomerular Filt Rate 55 mL/min (>60); Globulin 4.2 g/dL (1.7-4.1); Glucose 109 mg/dL (80-110); HEMOLYSIS < 15 (0-50); Potassium 3.7 mmol/L (3.4-5.1); Sodium 139 mmol/L (137-145); Total Protein 8.6 g/dL (6.3-8.2)
[2024-11-12 16:46] LABS: Troponin I < 0.012 ng/mL (0.01-0.034)
[2024-11-12] MEDS: APIXABAN 5 MG TABLET 10 MG PO (17:56)
[2024-11-12 18:51] VITALS: BP 171/75; PULSE 68; RESP 17; O2SAT 97
== END 2024-11-12 18:59 | disposition home or self-care (01) ==
PROVIDERS: Emergency Provider Physician Assistant; Family Provider Family Medicine; PCP Family Medicine
DX: M79.602 Pain in left arm (principal); M25.412 Effusion, left shoulder; J98.11 Atelectasis; R91.1 Solitary pulmonary nodule; R07.9 Chest pain, unspecified
CPT/HCPCS: 71045; 71275; 80053; 82550; 84484; 85025; 93005; 93971; 99283; 99284; Q9967

== ENCOUNTER → 2024-12-15 12:39 | Outpatient (CLI) | payer MEDICARE, OTHER, SELFPAY ==
[2021-11-05 15:15] VITALS: BMI 35.1
--- NOTE | 2024-12-15 | DI.RAD.S_ITS ---
PROCEDURE: XR SHOULDER LT MIN 2V INDICATIONS: SHOULDER PAIN TECHNIQUE: 3 views of the shoulder were acquired. COMPARISON: [facility], , SHOULDER MINIMUM 2VIEW RIGHT, 05/09/2017, 12:20. FINDINGS: Bones: No fractures or dislocations. The humeral head is mildly high-riding. Moderate glenohumeral joint space narrowing and marginal osteophytosis and moderate hypertrophic acromioclavicular arthropathy No suspicious bony lesions. Visualized ribs appear intact. Soft tissues: No suspicious soft tissue calcifications. IMPRESSION: Degenerative change of the glenohumeral and acromioclavicular joints without evidence of acute bony abnormality. Dictated by: Doug Vilchis M.D. on 12/16/2024 at 3:10 Approved by: Doug Vilchis M.D. on 12/16/2024 at 3:17
--- NOTE | 2024-12-15 | DI.RAD.S_ITS ---
PROCEDURE: FL JOINT INJECTION LARGE LT hip INDICATIONS: LEFT HIP PAIN COMPARISON: None. TECHNIQUE: The indications, alternatives, benefits, risks, and complications of the procedure were explained to the patient. Written informed consent was obtained and placed in the chart. The patient was placed in an appropriate position on the fluoroscopy table, and a site was chosen for percutaneous access under fluoroscopic guidance. The site was prepped and draped in a sterile fashion. Local anesthetic was administered using a 1% lidocaine solution. A hypodermic or spinal needle was then used to access the symptomatic joint. Intra-articular location of the needle tip was confirmed by injecting a small amount of contrast, followed by steroid administration. The needle was then withdrawn, and a bandage applied to the puncture site. FINDINGS: Joint injected: Left hip joint Medications injected: 1 mL of 40 mg/mL Kenalog and 9 mL 0.5% Ropivacaine mixture. Patient's pain before injection: 7 out of 10. Patient's pain after injection: 3 out of 10. Complications: None. IMPRESSION: Successful fluoroscopically guided administration of steroid and anaesthetic solution into the left hip joint. Dictated by: Sotero Crawford M.D. on 12/15/2024 at 21:46 Approved by: Sotero Crawford M.D. on 12/15/2024 at 21:47
[2024-12-15] MEDS: LIDOCAINE 1% 20 ML INJ (13:30)
[2024-12-15] MEDS: TRIAMCINOLONE 40 MG/ML VIAL INTRA-ARTI (13:31)
[2024-12-15] MEDS: ROPIVACAINE 0.5% PF 5 MG/ML 20ML VIAL 20 ML INJ (13:31)
== END ==
PROVIDERS: Family Provider Family Medicine; PCP Family Medicine; Referring Provider Radiology Diagnostic Radiology; Visit Provider Radiology Diagnostic Radiology
DX: M25.552 Pain in left hip (principal); M25.512 Pain in left shoulder
CPT/HCPCS: 20610; 73030; 77002; Q9967

== ENCOUNTER → 2025-01-05 08:40 | Outpatient (CLI) | payer MEDICARE, OTHER, SELFPAY ==
[2021-11-05 15:15] VITALS: BMI 35.1
--- NOTE | 2025-01-05 | PATH_ITS ---
[facility] Accession Number: [id number] No. of containers..01 Tissue . 01 Material submitted: . breast - LEFT BREAST 11:00 7CMFN . 01 Clinical history: . LEFT BREAST 11:00 7CMFN PLEASE SEE ATTACHED . 01 Diagnosis: LEFT BREAST AT 11 O'CLOCK, 7 CM FROM NIPPLE: Invasive mammary carcinoma. Please see cancer case summary. . Specimen Procedure: Needle biopsy. Specimen laterality: Left Tumor site: 11 o'clock, 7 cm from nipple. Histologic type: Invasive carcinoma of no speciial type (ductal). Histologic grade: Glandular/tubular differentiation: Score 2 of 3. Nuclear pleomorphism: Score 2 of 3. Mitotic rate: Score 1 of 3. Overall grade: Grade 1, low grade (score 5 of 9). Ductal carcinoma in situ: Present. Lymphovascular invasion: Not identified. . Special studies: . Predictive marker immunohistochemical studies are performed on block A1 with the invasive carcinoma showing the following results: . Estrogen receptor (SP1): Positive (91-100%, strong intensity). Progesterone receptor (1E2): Positive (21-30%, intermediate intensity). Her2 (4B5): Equivocal (2+). FISH studies are pending; results will be reported as an addendum. Ki-67 (MIB1): Low (less than 5%). . Internal controls for ER and TX are positive. Cold ischemic time cannot be calculated. Total fixation time cannot be calculated. The scoring criteria for breast biomarkers by immunohistochemistry is based on the ASCO/CAP guidelines (Parish AC et al, J Clin Oncol: 2018 Feb 10;36(20):2574-4312 and Elizabet ME et al, Arch Pathol Lab Med: 2009;134(6):907-22). Deparaffinized sections of formalin fixed tissue (along with appropriate positive controls) are incubated with the above antibody(s). Using the automated [employer] stainer, tissue is incubated with the designated antibody which is then localized by a non-biotin, dual polymer detection system. The external controls are reviewed for appropriate reactivity and found to be adequate. Results on the target cell population are indicated above. These tests have not been validated on decalcified tissue. V 01/10/2025 1628 Local . 01 Comment: This case was also reviewed by Dr. Renny Whyte (Julie), who agrees with the interpretation. . Dr. Sandra Martinez discussed results with Katherine Winters, medical billing coder with Dr. Ham Gasca, on 01-10-25 at approximately 3:57 p.m. . 01 Electronically signed: . Sandra Martinez MD, Pathologist NPI- [id number] . 01 Gross description: . Received is one formalin-filled container labeled with the patient's name and labeled L. 11 o'clock 7 cm FN. The specimen is received with plastic filter in container and are multiple fragments of robert-maldonado soft tissue and blood which range in size from 0.3 x 0.3 x 0.2 cm to 1.3 x 0.3 x 0.3 cm. All fragments are totally submitted in cassette A1. . Collection date per requisition 01/05/2025. No collection time or time in fixative provided. Cold ischemic time cannot be calculated. Total fixation time cannot be calculated. ([id number]) /[facility] 01/06/2025 0544 Local . 01 Microscopic: . An immunohistochemistry panel is performed on block A1 to further evaluate the cells of interest. The control stains show appropriate reactivity. . RESULTS: E-cadherin: Positive, consistent with ductal differentiation. 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 SMMS1: Absent in regions of interest, consistent with DCIS. D2-40: Negative; no lymphovascular involvement identified. . . * This test was developed and the performance characteristics were validated by [employer]. It has not been cleared or approved by the U.S. Food and Drug Administration. . 01 Pathologist provided ICD-10: C50.912 . 01 CPT . 907543, 043308, 141832, 296481, 625191, V94688, R36491 Specimen Comment: A courtesy copy of this report has been sent to [phone] Performed at: [address] [id number] MD Xander Greenwood MD Phone: [phone]
--- NOTE | 2025-01-05 08:44 | DI.MG.S_ITS ---
MM diagnostic mammo [id number]: 01/05/2025. BI-RADS: None CLINICAL: 84-year old female for left diagnostic mammogram that is a recall from screening on 10/08/2024. Mammogram is performed after US guided biopsy to assess marker location. No Tyrer-Cuzick risk score calculation due to the patient's personal history of breast cancer. 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 Status-post right mastectomy with chemotherapy. Current reported family history of breast cancer: mother, sister and maternal aunt's daughter. The patient had a prior left breast biopsy. PRIOR EXAMS Mammogram(s): 11/12/2024, 10/08/2024. Breast Ultrasound(s): 11/12/2024. 18 Other Exams on 10/11/2022, 10/02/2021. MAMMOGRAPHY TECHNIQUE: 2D and 3D (tomosynthesis) digital mammographic views obtained, with additional images as needed for full coverage. Current study was also evaluated with a Computer Aided Detection (CAD) system. DENSITY Left: B. There are scattered areas of fibroglandular density. MAMMOGRAPHY FINDINGS Left: Upper Inner at 11:00, Middle depth: There is a (Tumark(R) Vision) biopsy marker in targeted location. IMPRESSION: Left * Biopsy marker present. OVERALL ASSESSMENT CATEGORY BI-RADS None: This exam requires no BI-RADS. ELECTRONICALLY SIGNED: Hang Lebron M.D. on 01/05/2025 at 12:47:10 PM PT Interpreting Station ID: [id number]
--- NOTE | 2025-01-05 08:45 | DI.US.S_ITS ---
US bx breast perc w vac device: 01/05/2025. Rad-Path Correlation: Concordant Pathology Classification: Invasive SEE ADDENDUM AT END OF THIS REPORT SEE UPDATED PATHOLOGY AT END OF THIS REPORT CLINICAL: 84-year old female for left procedure that resulted from diagnostic mammogram on 11/12/2024. No Tyrer-Cuzick risk score calculation due to the patient's personal history of breast cancer. 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 Status-post right mastectomy with chemotherapy. Current reported family history of breast cancer: mother, sister and maternal aunt's daughter. The patient had a prior left breast biopsy. CONSENT Risks including but not limited to bleeding and infection, benefits and alternatives were discussed with the patient. The patient agreed to the procedure and signed informed consent. Time out procedure was used. ROUTINE Left: Patient positioned in the supine or supine-oblique position, prepped and draped in the usual manner using sterile technique. TECHNIQUE Left Breast: Upper Inner at 11:00, 7 cm from nipple: Morphology: Irregular mass measurin.6cm X 0.5cm X 0.4cm. Procedure: Ultrasound-guided vacuum-assisted biopsy of a mass with Tumark(R) Vision marker placement. Device: 14-gauge vacuum-assisted biopsy instrument. BD EleVation(TM). Approach: Direct. Anesthesia: Local anesthesia obtained using 1%-lidocaine. Skin Entry: Direct. Passes: 4. Targeting Confirmation: Real-time Observation and Post-Procedure Imaging. Marker Placement: Tumark(R) Vision marker placed in target location. Post-procedure imaging: Post-procedure imaging confirms the marker to be in target location. Rad/Path Correlation: Pending receipt of pathology report. Conclusion: Ultrasound-guided Vacuum-assisted biopsy with post-procedure CC and ML mammographic views with marker placement, Left Breast: Upper Inner at 11:00, 7 cm from nipple COMPLICATIONS: No complications were encountered while the patient was in our department. DISPOSITION The patient left our department in good condition with aftercare instructions and urged to contact us should any problem arise. The breast was compressed to achieve hemostasis. SUMMARY Left Breast: Upper Inner at 11:00, 7 cm from nipple: Ultrasound-guided vacuum-assisted biopsy of a mass with Tumark(R) Vision marker placement. PATHOLOGY Left Breast: Upper Inner at 11:00, 7 cm from nipple: Radiologist-Pathologist Correlation: Pending receipt of pathology report. SEE UPDATED RECOMMENDATIONS IN ADDENDUM AT END OF THIS REPORT ELECTRONICALLY SIGNED: Hang Lebron M.D. on 01/05/2025 at 12:50:16 PM PT ADDENDA: * ADDENDUM: This addendum is to add result of Pathology and/or to assign Concordance or Discordance to Rad-Path correlation. RAD-PATH CORRELATION: Concordant. Rad-Path Correlation changed from Pending. ELECTRONICALLY SIGNED: Hang Lebron M.D. on 01/12/2025 at 11:15:48 AM. UPDATED PATHOLOGY Left Breast: Upper Inner at 11:00, 7 cm from nipple: Invasive Breast Carcinoma IDC): Invasive Ductal Carcinoma. Radiologist-Pathologist Correlation: Concordant. UPDATED RECOMMENDATIONS Left * Consultation with surgeon. Appointment for this consult to be scheduled as soon as possible. Interpreting Station ID: [id number]
== END ==
PROVIDERS: Family Provider Family Medicine; PCP Family Medicine; Referring Provider Family Medicine; Visit Provider Family Medicine
DX: R92.8 Other abnormal and inconclusive findings on diagnostic imaging of breast (principal); C50.212 Malignant neoplasm of upper-inner quadrant of left female breast; R92.322 Mammographic fibroglandular density, left breast; Z85.3 Personal history of malignant neoplasm of breast; Z90.11 Acquired absence of right breast and nipple; Z80.3 Family history of malignant neoplasm of breast; Z17.0 Estrogen receptor positive status [ER+]
CPT/HCPCS: 19083; 77065

== ENCOUNTER 2025-02-18 08:06 | Day surgery (SDC) | payer MEDICARE, OTHER, SELFPAY ==
[2025-01-13 13:35] VITALS: BMI 35.1
[2025-02-16 09:43] VITALS: BMI 30.4
[2025-02-18] VITALS (9 sets, daily range): BP systolic 122–151; BP diastolic 60–78; PULSE 67–75; RESP 14–19; TEMP 36.1–36.6; O2SAT 94–99
--- NOTE | 2025-02-18 | PATH_ITS ---
[facility] Accession Number: [id number] No. of containers..03 Tissue . 01 Material submitted: . PART A: breast - NEW INFERIOR MARGIN ON LEFT BREAST TISSUE PART B: breast - NEW LATERAL MARGIN LEFT BREAST TISSUE PART C: breast - LEFT BREAST TISSUE . 01 Clinical history: . C) LEFT BREAST TISSUE ANTERIOR GREEN, INFERIOR BLUE, LATERAL ORANGE, YELLOW MEDIAL, POSTERIOR BLACK, SUPERIOR RED . 01 Diagnosis: A. NEW INFERIOR MARGIN ON LEFT BREAST TISSUE: Benign breast parenchyma; negative for tumor. . B. NEW LATERAL MARGIN, LEFT BREAST TISSUE: Benign breast parenchyma; negative for tumor. . C. LEFT BREAST TISSUE: Invasive mammary carcinoma. Please see cancer case summary. . CASE SUMMARY Specimen Procedure: Excision (less than total mastectomy). Specimen laterality: Left. . Tumor Tumor site: 11 o'clock, 7 cm from nipple. Histologic type: Invasive carcinoma of no special type (ductal). Histologic grade Glandular/tubular differentiation: Score 2/3. Nuclear pleomorphism: Score 3/3 Mitotic rate: Score 1/3. Overall grade: Grade 2 (score 6/9). Tumor size: 10 mm in greatest dimension. Ductal carcinoma in situ: Present as a separate 3 mm focus, cribriform and micropapillary patterns, low nuclear grade, with associated microcalcifications. . Tumor extent: Not applicable. . Lymphatic and/or vascular invasion: Not identified. . Treatment effect: No known presurgical therapy. . Margins of DCIS: Negative Anterior: Less than 1 mm. Posterior:Greater than 10 mm. Lateral: Greater than 10 mm. Medial: Greater than 10 mm. Superior: Greater than 10 mm. Inferior: Greater than 10 mm. . . Margins of invasive tumor: Minute focus positive. Cisco-inferior (junction of green-blue ink): Positive for tumor over approximately 2 mm, slice 8 of 11, superior to inferior. Posterior: Greater than 10 mm. Superior: Greater than 10 mm. Inferior:Greater than 10 mm. Medial: Greater than 10 mm. Lateral: Greater than 10 mm. . Regional lymph nodes: Not applicable (no regional lymph nodes submitted or found). . Distant sites involved: Not applicable. . Additional findings: Localization wire present superiorly; Vision biopsy clip slice 9; changes consistent with previous instrumentation. . pTNM classification (AJCC 8th Edition): pT1b pN not assigned pM not applicable. . Special studies: Predictive marker immunohistochemical studies are performed on block C4 with the invasive carcinoma showing the following results: . Estrogen receptor (SP1): Positive (91-100%, strong intensity). Progesterone receptor (1E2): Positive (21-30%, moderate to weak intensity). Her2 (4B5): Negative (1+). Ki-67 (MIB1): Low (less than 5% of tumor nuclei). . Internal controls for ER and DE are positive. Cold ischemic time cannot be calculated. Total fixation time is greater than 72 hours. The scoring criteria for breast biomarkers by immunohistochemistry is based on the ASCO/CAP guidelines (Parish AC et al, J Clin Oncol: 2017Feb 10;36(20):6251-2449 and Elizabet ME et al, Arch Pathol Lab Med: 2009;134(6):907-22). Deparaffinized sections of formalin fixed tissue (along with appropriate positive controls) are incubated with the above antibody(s). Using the automated [place] stainer, tissue is incubated with the designated antibody which is then localized by a non-biotin, dual polymer detection system. The external controls are reviewed for appropriate reactivity and found to be adequate. Results on the target cell population are indicated above. These tests have not been validated on decalcified tissue. . This test was developed and the performance characteristics were validated by [facility]. It has not been cleared or approved by the U.S. Food and Drug Administration. MRV 02/25/2025 1515 Local . 01 Electronically signed: . Sandra Martinez MD, Pathologist NPI- [id number] . 01 Gross description: . A. Received in formalin with two identifiers and new inferior margin on left breast tissue, is an unoriented fragment of yellow, lobulated, fibroadipose tissue weighing 3 grams and measuring 3.1 x 2.2 x 1.1 cm. One surface is slightly ragged and is inked blue, while the opposite surface is smoother and is inked black. The specimen is serially sectioned into seven slices to reveal yellow, soft, fibroadipose tissue with less than 10% fibrous tissue and no lesions identified. The specimen is submitted entirely as follows: A1: Slice 1 perpendicular. A2: Slices 2 and 3. A3: Slices 4 and 5. A4: Slice 6. A5: Slice 7 perpendicular. B. Received in formalin with two identifiers and new lateral margin left breast tissue, is an unoriented, yellow, lobulated fragment of fibroadipose tissue weighing 5 grams and measuring 3.0 x 2.8 x 1.3 cm. One surface is slightly ragged and is inked blue, while the opposite surface is smoother and is inked black. The specimen is serially sectioned into seven slices to reveal soft, yellow to white fibroadipose tissue with 10% fibrous tissue and no lesions identified. The specimen is submitted entirely as follows: B1: Slice 1 perpendicular. B2: Slices 2 and 3. B3: Slice 4. B4: Slices 5 and 6. B5: Slice 7 perpendicular. C. Received: In formalin with two identifiers and left breast tissue. Specimen: A previously inked left lumpectomy. Weight: 27 grams. Measurement: 6.0 cm superior to inferior, 4.9 cm medial to lateral, 2.1 cm anterior to posterior. Skin ellipse: Absent. Wire: Present, penetrating superiorly and terminating inferiorly with the terminating end of the wire visible at the inferior margin. Margins: Inked by the surgeon as follows: Anterior green, inferior blue, lateral orange, medial yellow, posterior black, superior red. A short suture with no designation is identified within the red ink, a long suture is identified as in the orange ink, and a robert plastic clamp is identified attached to blue ink. Inking reinforced at the bench. Sliced: From superior to inferior into 11 slices. Lesion: One lesion identified. Description: An ill-defined pale maldonado firm lesion. Size: 1.1 x 1.4 x 0.7 cm. Slices involved: Slices 7-9. Biopsy site: Present; a Vision biopsy clip is found within slice 9. Distance to margins: The lesion is at the blue-inked margin, 0.1 cm from the orange-inked margin, 0.9 cm from the black-inked margin, and greater than 1 cm from all remaining margins. Other: The cut surfaces are yellow to white fibroadipose tissue with approximately 10% fibrous tissue, and no additional lesions identified. Fixation: The specimen was removed on 02/18/2025, time in formalin is not provided. Cold ischemic time cannot be calculated. Total fixation time is greater than 72 hours. Tank Charger sections are submitted as follows: C1: Rep slice 1, red margin perpendicular. C2-C3: Composite slice 6, no lesion. C4-C5: Composite slice 7 with lesion. C6: Entire slice 8, lesion to nearest margins. C7: Slice 9, with biopsy site. C8: Slice 10, no lesion. C9: Rep slice 11, blue margin perpendicular. ([id number]) /MRV 02/22/2025 1359 Local . 01 Microscopic: . An immunohistochemistry panel is performed to further evaluate the cells of interest. The control stains show appropriate reactivity. . RESULTS: Block A2 Myosin: Present around region of interest, mitigates against invasive tumor. P63: Present around region of interest, mitigates against invasive tumor. . Block C4 E-cadherin: Positive in regions of interest, consistent with ductal differntiation. . Block C6 P63: Absent in regions of interest, consistent with invasive carcinoma. Myosin: Absent in regions of interest, consistent with invasive carcinoma. . Block C7: P63: Positive in region of interest, mitigates against the presence of invasive carcinoma. Myosin: Positive in region of interest, mitigates against the presence of invasive carcinoma. . * This test was developed and the performance characteristics were validated by [employer]. It has not been cleared or approved by the U.S. Food and Drug Administration. . 01 Pathologist provided ICD-10: C50.912 . 01 CPT . 991111, 160879, 120234, 801661, 080880, 729587, 723155, B54416 Specimen Comment: A courtesy copy of this report has been sent to [phone] Performed at: [address] [address], [place], [place] [id number] MD Xander Greenwood MD Phone: [phone]
--- NOTE | 2025-02-18 08:24 | SUR.PREOP ---
Pt transferred from pre-op to mammography by mammo tech. Pt in gown, personal belongings stored behind nurses station in pre-op, family in waiting room. Transferred via wheelchair.
[2025-02-18] MEDS: LACTATED RINGERS 1,000 ML 42 ML IV (09:35)
[2025-02-18] MEDS: ACETAMINOPHEN 325 MG TABLET 975 MG PO (09:36)
--- NOTE | 2025-02-18 11:12 | PM.PREOP ---
Pre-operative Note COVID-19 COVID-19 status: Not tested Interval Note History & Physical reviewed/Exam performed by Physician: Yes Changes to H&P: No ASA Class (for procedural sedation): III
--- NOTE | 2025-02-18 11:51 | SUR.OPER ---
Supine on padded OR bed, head on pillow, arms secured on padded arm boards at <90 degrees abduction, legs uncrossed, safety belt at thigh, tape over blanket over lower legs.
[2025-02-18] MEDS: BUPIVACAINE 0.5% W/ EPI (PF) 30 ML VIAL INJ (12:00)
--- NOTE | 2025-02-18 12:25 | P.OP_ITS ---
Operative Date/Time/Diagnoses Date of procedure: 02/18/25 Time of procedure: 12:25 Pre-op diagnosis: Left breast cancer Post-op diagnosis: same Procedure & Clinicians Procedure: Left breast wire localization lumpectomy Same procedure(s) as scheduled: Yes Surgeon: Guy Garcia Health Information Technologist: Avtar Ordoñez Anesthesia Type: General Operative Notes Findings: Left breast Applied: none Estimated Blood Loss (mL): 10 Procedure in detail: The patient had a wire localization performed at Radiology prior to arrival in the perioperative area. The patient was brought to the operating room, placed on the table in the supine position, general anesthesia was induced. Arms were abducted on arm boards. The left breast was prepped and draped in the usual fashion. A time-out was performed. We made a 9 cm incision just lateral to the wire. We created flaps superior and inferior to the incision and then dissected down to the chest wall keeping the wire within the center portion of specimen. We reached pectoral fascia at the deepest aspect of the dissection. The specimen was excised with the wire intact. The specimen was sent to Radiology for specimen mammogram. We took an extra inferior margin and an extra lateral margin which were the closest two margins. We then irrigated the wound cavity with sterile saline. Local anesthetic was in jected into the muscle layer of the lumpectomy site. A few bleeders were cauterized. Once the wound cavity was hemostatic we injected some local anesthetic into the dermis and closed the incision in layers using multiple interrupted 3-0 Vicryl dermal sutures followed by a running 4-0 Monocryl subcuticular closure. Radiology called the OR reporting that the clip was visualized within the specimen. Steri-Strips were applied followed by dry gauze and a breast binder. EBL: 10 mL Complications: none Post-operative Condition: stable Disposition: PACU
[2025-02-18] MEDS: OXYCODONE IR 5 MG TABLET PO (12:50)
[2025-02-18] MEDS: ONDANSETRON 4 MG/2 ML INJ IV (12:50)
[2025-02-18] MEDS: BENZOCAINE/MENTHOL 1 LOZ PKT 1 EACH PO (13:07)
== END 2025-02-18 13:30 | disposition home or self-care (01) ==
PROVIDERS: Family Provider Family Medicine; PCP Family Medicine; Referring Provider Surgery; Visit Provider Surgery
PROC: (CPT 19301; principal; 2025-02-18 10:15)
DX: C50.912 Malignant neoplasm of unspecified site of left female breast (principal); Z17.0 Estrogen receptor positive status [ER+]; Z17.21 Progesterone receptor positive status; Z17.32 Human epidermal growth factor receptor 2 negative status
CPT/HCPCS: 19301; 19281; 76098; C1819; J2405; J2704; J3010

== ENCOUNTER → 2025-03-04 13:57 | Outpatient (CLI) | payer MEDICARE, OTHER, SELFPAY ==
[2025-01-13 13:35] VITALS: BMI 35.1
[2025-03-04 15:27] LABS: Free T3, Triiodothyronine Free 4.46 pg/mL (2.77-5.27); Free T4, Direct Thyroxine 1.31 ng/dL (0.78-2.19)
[2025-03-04 15:41] LABS: Thyroid Stimulating Hormone 3.39 uIU/mL (0.47-4.68)
[2025-03-04 17:30] LABS: T4 Total Thyroxine 9.06 ug/dL (5.5-11.0); T7 (Free Thyroxine Index) 2.62 (1.65-3.89); Triiodothryronine T3 Uptake 28.9 % (23.5-40.5)
== END ==
PROVIDERS: Family Provider Family Medicine; PCP Family Medicine; Referring Provider Family Medicine; Visit Provider Family Medicine
DX: Z13.29 Encounter for screening for other suspected endocrine disorder (principal); E03.9 Hypothyroidism, unspecified; E05.90 Thyrotoxicosis, unspecified without thyrotoxic crisis or storm; R94.6 Abnormal results of thyroid function studies
CPT/HCPCS: 36415; 84436; 84439; 84443; 84479; 84481

== ENCOUNTER 2025-03-08 13:56 | Day surgery (SDC) | payer MEDICARE, OTHER, SELFPAY ==
[2025-01-13 13:35] VITALS: BMI 35.1
--- NOTE | 2025-03-08 | PATH_ITS ---
[facility] Accession Number: [id number] No. of containers..02 Tissue . 01 Material submitted: . PART A: breast - LEFT BREAST PART B: breast - LEFT BREAST . 01 Clinical history: . A) NEW ANTERIOR MARGIN, SHORT STITCH SUPERIOR, LONG STITCH LATERAL - LEFT BREAST B) NEW INFERIOR MARGIN - LEFT BREAST . 01 Diagnosis: A. LEFT BREAST, NEW ANTERIOR MARGIN: Negative for residual invasive or in-situ carcinoma. Negative for significant epithelial atypia or malignancy. Changes consistent with previous instrumentation are present. . B. LEFT BREAST, NEW INFERIOR MARGIN: Negative for residual invasive or in-situ carcinoma. Benign breast parenchyma with patchy usual ductal hyperplasia, stromal fibrosis, papillomatosis, and adenosis. Changes consistent with previous instrumentation are present. Microcalcifications are present and are associated with benign ductal epithelium. Negative for significant epithelial atypia or malignancy. V 03/16/2025 1500 Local . 01 Electronically signed: . Sandra Martinez MD, Pathologist NPI- [id number] . 01 Gross description: . A. Received in formalin with two identifiers and new anterior margin left breast. Specimen: Left partial mastectomy. Weight: 20 grams. Measurement: 7.5 cm superior to inferior, 4.8 cm medial to lateral, and 1.3 anterior to posterior. Skin ellipse: Absent. Wire: Absent. Margins: The specimen is received oriented with a short stitch superior and a long stitch lateral. The specimen is inked: superior - orange, inferior - green, medial - red, lateral - yellow, anterior - blue, and posterior - black (Note: The inking scheme is different than the usual protocol). Sliced: Superior to inferior in 15 slices. Lesion: Not identified. Other: The cut surface is yellow-maldonado, fibrotic, and nodular, consisting of approximately 90% adipose tissue and 10% fibrous tissue. Guest Relations Manager sections are submitted as follows: A1: Guest Relations Manager slice 1, superior margin, perpendicular. A2-A3: Composite slice 5, bisected. A4: Slice 10. A5: Slice 11, bisected. A6: Slice 12, bisected. A7: Slice 13, bisected. A8-A9: Slice 14, bisected. A10-A11: Slice 15, inferior margin, perpendicular. B. Received in formalin with two identifiers and new inferior margin left breast, is a 6 gram, 4.1 x 3.3 x 1.2 cm ragged, irregularly shaped breast specimen. One surface is smooth, consistent with cavity. The specimen is inked: cavity - black, opposing superior half - green, inferior half - blue. The specimen is sectioned from one end to the other in nine slices. The cut surface is yellow-white, fibrotic, and focally nodular. A discrete mass or lesion is not grossly identified. The specimen is entirely submitted sequentially in cassettes B1-B9. . The formalin fixation time is not provided and the cold ischemic time cannot be determined. Total formalin fixation time is approximately 56 hours. ([id number]) /[place] 03/09/2025 2110 Local . 01 Microscopic: . An immunohistochemistry panel is performed to further evaluate the cells of interest. The control stains show appropriate reactivity. . RESULTS: Block A6, A7, A9, A11 P63: Positive in region of interest. Myosin: Positive in region of interest. . The presence of myosin and p63 in the region of interest mitigate against the presence of invasive carcinoma. . Block B3, B6, B7, and B8 P63: Positive in region of interest. Myosin: Positive in region of interest. . The presence of myosin and p63 in the region of interest mitigate against the presence of invasive tumor at this focus. . . * This test was developed and the performance characteristics were validated by [facility]. It has not been cleared or approved by the [place]. Food and Drug Administration. . 01 Pathologist provided ICD-10: C50.912 . 01 CPT . 932327, 800927, G54830, V07824, R57129, Z75425 Specimen Comment: A courtesy copy of this report has been sent to [phone] Performed at: [address] [facility], [place], [place] [id number] MD Xander Greenwood MD Phone: [phone]
--- NOTE | 2025-03-08 14:25 | PM.PREOP ---
Pre-operative Note COVID-19 COVID-19 status: Not tested Interval Note History & Physical reviewed/Exam performed by Physician: Yes Changes to H&P: No ASA Class (for procedural sedation): II
[2025-03-08 14:40] VITALS: BP 162/72; PULSE 62; RESP 16; TEMP 36.5; O2SAT 97
[2025-03-08] MEDS: ACETAMINOPHEN 325 MG TABLET 975 MG PO (14:52)
[2025-03-08] MEDS: LACTATED RINGERS 1,000 ML 42 ML IV (14:53)
--- NOTE | 2025-03-08 15:19 | SUR.OPER ---
Supine on padded OR bed, head on pillow, arms secured on padded arm boards at <90 degrees abduction, legs uncrossed, safety belt at thigh, tape over blanket over lower legs.
[2025-03-08] MEDS: BUPIVACAINE 0.5% (PF) 30 ML VIAL INJ (15:22)
--- NOTE | 2025-03-08 15:59 | PM.OP.1 ---
Operative Date/Time/Diagnoses Date of procedure: 03/08/25 Time of procedure: 15:59 Pre-op diagnosis: Left breast cancer Post-op diagnosis: same Procedure & Clinicians Procedure: Reexcision of left breast cancer Same procedure(s) as scheduled: Yes Surgeon: Guy Garcia Click Yes if Unassisted: Yes Anesthesia Type: General Operative Notes Findings: None Applied: none Estimated Blood Loss (mL): 5 Procedure in detail: The patient is an 84-year-old woman who had a prior left breast lumpectomy for breast cancer. The path showed a positive margin in the anterior inferior section of the specimen. 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 She was consented for re-excision. The patient was brought to the operating room and general anesthesia was induced with a LMA. The left breast was prepped and draped in the usual fashion and a time-out was performed. We started by reexcised in the old incision and discarded the skin. We then dissected down through the subcutaneous tissue with cautery until we entered the seroma cavity. We then excised the anterior wall of the seroma cavity. This was marked with a short stitch superior and a long stitch lateral. We then reexcised the inferior portion of the seroma cavity and sent this specimen unoriented. We then irrigated the wound cavity with 2 L of saline. A few small bleeders were cauterized. The wound was then closed in layers using multiple interrupted 3-0 Vicryl dermal sutures followed by a running 4-0 Monocryl subcuticular stitch. EBL: 5 mL Specimen: New anterior margin, new inferior margin Complications: none Post-operative Condition: stable Disposition: PACU
[2025-03-08 16:01] VITALS: BP 132/63; PULSE 60; RESP 14; TEMP 36.4; O2SAT 96
[2025-03-08 16:05] VITALS: BP 139/65; PULSE 59; RESP 18; O2SAT 95
[2025-03-08 16:10] VITALS: BP 163/69; PULSE 62; RESP 22; O2SAT 97
[2025-03-08] MEDS: OXYCODONE IR 5 MG TABLET PO ×2 (16:19→16:47)
[2025-03-08 16:25] VITALS: BP 159/68; PULSE 68; RESP 22; O2SAT 98
[2025-03-08 16:44] VITALS: BP 138/60; PULSE 69; RESP 18; TEMP 36.5; O2SAT 95
== END 2025-03-08 17:19 | disposition home or self-care (01) ==
PROVIDERS: Family Provider Family Medicine; PCP Family Medicine; Referring Provider Surgery; Visit Provider Surgery
PROC: (CPT 19301; principal; 2025-03-08 15:15)
DX: C50.912 Malignant neoplasm of unspecified site of left female breast (principal); Z17.0 Estrogen receptor positive status [ER+]
CPT/HCPCS: 19301; J1100; J2405; J2704; J3010